=== PATIENT | male | born 1975 | race Caucasian/White ===

== ENCOUNTER 2023-06-29 16:18 | Emergency (ER) | payer OTHER, SELFPAY ==
[2023-06-29 16:23] VITALS: BP 148/82; PULSE 82; RESP 18; TEMP 36.9; O2SAT 100; BMI 33.7
--- NOTE | 2023-06-29 16:48 | ECG_ITS ---
Test Reason : HEADACHE Blood Pressure : / mmHG Vent. Rate : 075 BPM Atrial Rate : 075 BPM P-R Int : 178 ms QRS Dur : 100 ms QT Int : 380 ms P-R-T Axes : 053 -27 068 degrees QTc Int : 424 ms Normal sinus rhythm Minimal voltage criteria for LVH, may be normal variant ( R in aVL ) Nonspecific T wave abnormality Abnormal ECG No previous ECGs available Referred By: Generic ED Physician Electronically Signed By:SHERRELL GONCALVES
[2023-06-29 17:09] LABS: MANUAL DIFF FLAG NO
[2023-06-29 17:31] LABS: Basophils Absolute Auto 0.1 X10*3/uL (0.0-0.2); Basophils Percent Auto 0.9 % (0-2); Eosinophils Absolute Auto 0.3 X10*3/uL (0.0-0.4); Eosinophils Percent Auto 3.6 % (0-4); Hematocrit 27.5 % (42.0-52.0); Hemoglobin 9.1 g/dl (14.0-18.0); Imm Gran Abs Auto 0.03 X10*3/uL (0.00-0.03); Imm Gran Pct Auto 0.4 % (0.0-0.4); Lymphocytes Absolute Auto 1.7 X10*3/uL (1.2-4.9); Lymphocytes Percent Auto 24.4 % (20-40); Mean Corpuscular HGB Conc 33.1 g/dl (31.0-36.0); Mean Corpuscular Hemoglobin 28.8 pg (27.0-33.0); Monocytes Absolute Auto 0.8 X10*3/uL (0.1-1.2); Monocytes Percent Auto 11.3 % (2-11); Neutrophils Absolute Auto 4.1 x10*3/uL (2.0-8.3); Neutrophils Percent Auto 59.4 % (45-73); Platelet Count 369 X10*3/uL (160-400); Red Blood Count 3.16 X10*6/uL (4.60-5.80); Red Cell Distribution Width 14.5 % (11.0-16.0); White Blood Count 6.9 X10*3/uL (4.8-10.8)
[2023-06-29 17:34] LABS: Troponin-I High Sensitivity 225.1 ng/L (<3.5-35.0)
[2023-06-29 17:45] LABS: Anion Gap 12 (12-20); Blood Urea Nitrogen 36 mg/dL (9-16); Calcium 8.2 mg/dL (8.4-10.2); Carbon Dioxide 16 mmol/L (22-29); Chloride 110 mmol/L (96-108); Creatinine Clr Calc Pharmacy 38.6; Estimated Glomerular Filt Rate 21; Glucose Random 296 mg/dL (60-115); Sodium 133 mmol/L (135-145)
[2023-06-29 20:42] LABS: Troponin-I High Sensitivity 208.8 ng/L (<3.5-35.0)
--- NOTE | 2023-06-29 20:42 | PC.NURSE ---
Lab called with critical trop 208.8, reported to Leon, triage provider.
[2023-06-29 21:31] VITALS: BP 140/74; PULSE 69; RESP 16; TEMP 36.4; O2SAT 100
--- NOTE | 2023-06-29 22:28 | ED_ITS ---
HPI - General Adult General Chief complaint: Headache Stated complaint: Headache, was at [facility] last week for heart Time Seen by Provider: 06/29/23 22:13 History of Present Illness HPI narrative: The patient is a 47-year-old male with a history of hypertension, hyperlipidemia and chronic kidney disease who presented to [facility] with chest pain last week on June 28. The patient was found to have a non-STEMI and he went for cardiac catheter. The culprit vessel was noted to be the LAD/diagonal and the patient underwent a bifurcation stent placement to the LAD and diagonal. Echocardiogram showed a normal left ventricular ejection fraction. Apparently while he was in the hospital he developed a severe headache, possibly after receiving nitroglycerin. The headache was quite significant while he was in the hospital. A head CT was done that was negative. There were no signs of infection or visual symptoms. He was treated with pain medications and discharged with a plan to follow up with his PCP for further workup of his headache. The patient was discharged from [facility] 2 days ago. He had the headache at the time of discharge. He had a bad headache yesterday. He says the headache is better at night when it is dark. It is worse with noise or light. He does not have a stiff neck. No fever sweats, chills. He feels the headache primarily behind his left eye. Related Data Previous Rx's ?Medication ?Instructions ?Recorded oxycodone 5 mg tablet 5 mg PO Q6H PRN pain #10 tabs 06/30/23 Allergies Allergy/AdvReac Type Severity Reaction Status Date / Time acetaminophen Allergy Intermediate Shortness Verified 06/29/23 16:23 of Breath Review of Systems 2 Review of Systems: Yes all other systems are reviewed and are negative [facility] Social History Social History Smoked in Last 30 Days: No Use of substances other than those prescribed or required for medical reasons: No Advance Directives: No Advance Directives Information Provided: No Physical Exam ED Vital Signs: Vital Signs - 24 hr 06/29/23 16:23 06/29/23 21:31 06/30/23 00:06 Temperature 98.5 F 97.5 F 98.3 F Pulse Rate 82 69 77 Respiratory Rate 18 16 20 Blood Pressure 148/82 H 140/74 H 143/71 H Pulse Oximetry 100 100 98 Oxygen Delivery Method Room Air Room Air Room Air 06/30/23 00:24 Temperature 98.3 F Pulse Rate 77 Respiratory Rate 20 Blood Pressure 143/71 H Pulse Oximetry 98 Oxygen Delivery Method Room Air BMI result Body Mass Index 33.7 Const Other: The patient is awake and alert. Mental status is normal. He does not appear toxic. He looks mildly uncomfortable HENME Other: Face is symmetrical, mucous membranes moist. Eyes Other: Pupils are round equal, conjunctivae are clear, extraocular movements intact Neck Other: The neck is entirely supple. He can touch his chin to his chest very easily. Resp Effort & Inspection: normal respiratory effort Auscultation: clear to auscultation bilaterally Cardio Rate: regular rate Rhythm: regular rhythm Heart sounds: S1 normal heart sound present and S2 normal heart sound present GI Other: Abdomen is soft and nontender Skin Other: Skin is dry and unremarkable Neuro Other: The patient is awake and alert with a GCS of 15. Mental status is normal. Cranial nerves are intact. He moves his extremities normally. Has a normal gait. He is grossly neurologically intact Extrem Other: No calf swelling or tenderness, no asymmetry Medications Administered Discontinued Medications Generic Name Dose Route Start Last Admin Trade Name Jean Marieq PRN Reason Stop Dose Admin Diphenhydramine HCl 25 mg 06/29/23 22:36 06/29/23 23:07 Diphenhydramine Hcl 50 Mg/Ml Vial IVPUSH 06/29/23 22:37 25 mg ONCE ONE Administration Morphine Sulfate 4 mg 06/29/23 22:39 06/29/23 23:08 Morphine Sulfate 4 Mg/Ml Cartridge IVPUSH 06/29/23 22:40 4 mg ONCE ONE Administration Protocol Prochlorperazine Edisylate 10 mg 06/29/23 22:36 06/29/23 23:07 Prochlorperazine Edisylate 10 Mg/2 Ml Vial IVPUSH 06/29/23 22:37 10 mg ONCE ONE Administration Medical Decision Making Medical Decision Making MDM Narrative: The patient is a 47-year-old male who recently had a non-STEMI treated at [facility]. He had a cardiac catheterization 5 days ago and received stents. While in the hospital he developed a significant headache that he attributes to having received nitroglycerin. Headache was present when he was still at [facility] and he had a negative head CT while at [facility]. He describes the headache as a migraine headache. It is associated with photophobia and nausea. The headache is much better at night and worse during the day. No fevers. Clinically the patient does not seem septic or toxic in any way. He has a very supple neck. Based on his description of the headache I think this is probably a migraine type headache or other non dangerous headache syndrome. The patient's vital signs are unremarkable. His EKG is unremarkable. He has chronic renal insufficiency and today his creatinine is 3.15. He had a carbon dioxide of 16. His troponins are elevated. His 1st troponin was 225. A 2nd troponin was 208. The patient's description of his symptoms does not suggest any ongoing acute coronary syndrome. He has had none of the anginal symptoms with the which he presented to [facility] originally (he had had right-sided chest pain). I therefore think his troponin elevations are likely a residual phenomenon from his SD last week combined with his poor renal function. The patient was given a L of IV normal saline as well as prochlorperazine, diphenhydramine, and morphine for his headache. He felt considerably better. His headache resolved. He was discharged to go home. He requested a prescription for additional oxycodone (he had been prescribed oxycodone at the time of discharge). I sent a prescription for 10 tablets of oxycodone 5 mg each. Lab Data 06/29/23 17:04 06/29/23 17:04 Labs: Lab Results 06/29/23 06/29/23 Range/Units 17:04 20:01 WBC 6.9 (4.8-10.8) X10*3/uL RBC 3.16 L (4.60-5.80) X10*6/uL Hgb 9.1 L (14.0-18.0) g/dl Hct 27.5 L (42.0-52.0) % MCV 87.0 (80.0-98.0) fL MCH 28.8 (27.0-33.0) pg MCHC 33.1 (31.0-36.0) g/dl RDW 14.5 (11.0-16.0) % Plt Count 369 (160-400) X10*3/uL MPV 10.0 (9.4-12.4) fL Immature Gran % (Auto) 0.4 (0.0-0.4) % Neut % (Auto) 59.4 (45-73) % Lymph % (Auto) 24.4 (20-40) % [place] % (Auto) 11.3 H (2-11) % Eos % (Auto) 3.6 (0-4) % Baso % (Auto) 0.9 (0-2) % Lymph # (Auto) 1.7 (1.2-4.9) X10*3/uL [place] # (Auto) 0.8 (0.1-1.2) X10*3/uL Eos # (Auto) 0.3 (0.0-0.4) X10*3/uL Baso # (Auto) 0.1 (0.0-0.2) X10*3/uL Abs Immat Gran (auto) 0.03 (0.00-0.03) X10*3/uL Absolute Neuts (auto) 4.1 (2.0-8.3) x10*3/uL Absolute Nucleated RBC 0.000 (0.0-0.012) X10*3/uL Nucleated RBC % (auto) 0.0 (0.0-0.2) /100WBC Sodium 133 L (135-145) mmol/L Potassium 5.0 (3.3-5.1) mmol/L Chloride 110 H (96-108) mmol/L Carbon Dioxide 16 L (22-29) mmol/L Anion Gap 12 (12-20) BUN 36 H (9-16) mg/dL Creatinine 3.15 H (0.5-1.4) mg/dL Estim Creat Clear Calc 38.6 Estimated GFR 21 Random Glucose 296 H (60-115) mg/dL Calcium 8.2 L (8.4-10.2) mg/dL Troponin I High Sens 225.1 H* 208.8 H* (<3.5-35.0) ng/L Discharge Plan Discharge Clinical Impression: Headache Patient Disposition: Home, Self-Care Additional Instructions: My hope is that the medicine you received tonight will help break the cycle of your headache problem. Please contact your regular doctor tomorrow morning to set up a prompt follow up appointment. Continue your regular medications. Return to the emergency room if you feel significantly worse at any time Prescriptions: New oxycodone 5 mg tablet 5 mg PO Q6H PRN (Reason: pain) Qty: 10 0RF Rx Instructions: Partial Fill upon patient request. Referrals: Talya García MD [Primary Care Provider] - (Headache after SD and stent placement) Interventions: ED Discharge Assessment Last Done: 06/30/23 00:24 Discharge Date/Time: 06/30/23 00:35 Print Language: Belgian
--- NOTE | 2023-06-29 22:44 | MHC.EDTECH ---
Left for [facility]. Waiting on records for this patient.
[2023-06-29] MEDS: diphenhydrAMINE HCL 50 MG/ML VIAL 25 MG IVPUSH (23:07)
[2023-06-29] MEDS: Prochlorperazine Edisylate 10 MG/2 ML VIAL IVPUSH (23:07)
[2023-06-29] MEDS: Morphine Sulfate 4 MG/ML CARTRIDGE IVPUSH (23:08)
[2023-06-30 00:06] VITALS: BP 143/71; PULSE 77; RESP 20; TEMP 36.8; O2SAT 98
[2023-06-30 00:24] VITALS: BP 143/71; PULSE 77; RESP 20; TEMP 36.8; O2SAT 98
== END 2023-06-30 00:35 | disposition home or self-care (01) ==
PROVIDERS: Physician Assistant; Emergency Provider Emergency Medicine; PCP Internal Medicine
DX: R51.9 Headache, unspecified (principal); I21.4 Non-ST elevation (NSTEMI) myocardial infarction; I12.9 Hypertensive chronic kidney disease with stage 1 through stage 4 chronic kidney disease, or unspecified chronic kidney disease; N18.9 Chronic kidney disease, unspecified; Z95.5 Presence of coronary angioplasty implant and graft
CPT/HCPCS: 36415; 80048; 84484; 85025; 93005; 96374; 96375; 99284; J0737; J1200; J2270

== ENCOUNTER → 2023-06-29 16:48 | Outpatient (BNV) | payer OTHER, SELFPAY | PROVIDERS: Emergency Provider Emergency Medicine; PCP Internal Medicine; Visit Provider Internal Medicine | DX: R94.31 Abnormal electrocardiogram [ECG] [EKG] (principal) | CPT/HCPCS: 93010 ==

== ENCOUNTER 2025-01-25 09:45 | Outpatient (REF) | payer OTHER, SELFPAY ==
[2025-01-25 13:36] LABS: MANUAL DIFF FLAG NO
[2025-01-25 13:42] LABS: Hematocrit 26.6 % (42.0-52.0); Hemoglobin 8.6 g/dl (14.0-18.0); Imm Gran Abs Auto 0.01 X10*3/uL (0.00-0.03); Imm Gran Pct Auto 0.2 % (0.0-0.4); Lymphocytes Absolute Auto 1.7 X10*3/uL (1.2-4.9); Mean Corpuscular HGB Conc 32.3 g/dl (31.0-36.0); Mean Corpuscular Hemoglobin 29.3 pg (27.0-33.0); Mean Corpuscular Volume 90.5 fL (80.0-98.0); NRBC Abs Auto 0.000 X10*3/uL (0.0-0.012); NRBC Pct Auto 0.0 /100WBC (0.0-0.2); Platelet Count 271 X10*3/uL (160-400); Red Blood Count 2.94 X10*6/uL (4.60-5.80); White Blood Count 6.3 X10*3/uL (4.8-10.8)
[2025-01-25 14:46] LABS: Thyroid Stimulating Hormone 5.11 uIU/mL (0.32-4.0)
[2025-01-25 14:48] LABS: Alanine Aminotransferase 49 U/L (0-40); Aspartate Amino Transferase 35 U/L (5-37); Estimated Glomerular Filt Rate 12
[2025-01-26 21:08] LABS: Antibody to SS-A Antigen <1.0 NEG AI (<1.0 NEG); Antibody to SS-B Antigen <1.0 NEG AI (<1.0 NEG); SM/Ribonucleoprotein Ab <1.0 NEG AI (<1.0 NEG); Smith Protein <1.0 NEG AI (<1.0 NEG)
[2025-01-30 21:49] LABS: Anti Nuclear Antibody Pattern Nuclear, Speckled; Anti Nuclear Antibody Screen POSITIVE (NEGATIVE); Anti Nuclear Antibody Titer 1:320 titer
[2025-01-31 22:49] LABS: Thyroglobulin Antibodies <1 IU/mL (< or = 1)
== END 2025-01-25 09:46 | disposition home or self-care (01) ==
LOC: HO.HKASLDS 09:45
PROVIDERS: PCP Internal Medicine; Visit Provider Student in an Organized Health Care Education/Training Program
DX: M25.542 Pain in joints of left hand (principal); M25.541 Pain in joints of right hand; M25.512 Pain in left shoulder; M25.511 Pain in right shoulder; M25.552 Pain in left hip; M25.551 Pain in right hip; M25.562 Pain in left knee; M25.561 Pain in right knee; R76.0 Raised antibody titer; R76.89 Other specified abnormal immunological findings in serum
CPT/HCPCS: 36415; 82565; 83516; 84443; 84450; 84460; 85025; 85652; 86038; 86039; 86140; 86160; 86200; 86225; 86235; 86376; 86431; 86800; 99202

== ENCOUNTER 2025-01-25 09:45 | Outpatient (AMB) | payer OTHER, SELFPAY ==
--- OUTSIDE RECORDS SUMMARY | 2025-01-24 10:00 | XMS_ITS | Encounter Summary ---
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, with long-term current use of insulin, macular edema presence unspecified, unspecified laterality, unspecified prol* ([facility] V24, [facility] V28); Insomnia due to medical condition; Pedal edema; Renal failure, unspecified chronicity Social History Tobacco Use Types Packs/Day Years Used Date Smoking Tobacco: Former Cigarettes Smokeless Tobacco: Never Tobacco Cessation:Counseling Given: Not Answered Alcohol Use Standard Drinks/Week Comments Not Currently 0 (1 standard drink = 0.6 oz pur e alcohol) Housing Instability Answer Date Recorde d Are you worried that in the next 2 months you may not have stable housing? No 07/13/2024 Food Access & Nutrition Answer Date Rec orded Do you have access to a vari ety of food including fruits and vegetables? No 07/13/2024 Health Literacy Answer Date Recorded How often do you need to hav e someone help you when you read instructions, pamphlets, or other written material from your doctor or pharmacy? Rarely 07/13/2024 Caregiver: How often do you need to have someone help you when you read instructions, pamphlets, or other written material from your doctor or pharmacy? Not on file 07/13/2024 Financial Risk Answer Date Recorded How hard is it for you to pa y for the very basics like food, housing, medical care, and air conditioning / heating? Hard 07/13/2024 Transportation Answer Date Recorded Has the lack of transportati on kept you from meetings, work, or from getting things needed for daily living? Yes Has the lack of transportati on kept you from medical appointments or from getting medications? Yes 07/13/2024 Social Isolation Answer Date Recorded How often do you feel lonely or isolated from th ose around you? Often 07/13/2024 Food Risk Answer Date Recorded Within the past 12 months we worried whether our food would run out before we got money to buy more. Sometimes true 025 Within the past 12 months th e food we bought just didn't last and we didn't have money to get more. Sometimes true 07/13/2024 Dependent Care Answer Date Recorded Do you need help finding or paying for care for your loved ones. For example, children's ministry director or elderly care for an older adult? No 07/13/2024 Education Answer Date Recorded Do you think completing more education or training, like finishing a GED, going to college, or learning a trade, would be helpful for you? No 07/13/2024 Employment and Income Answer Date Recor ded During the last four weeks, have you been actively looking for work? No 07/13/2024 Living Situation Answer Date Recorded What is your living situation? Unrecognized valu e 07/13/2024 Interpersonal Safety Answer Date Record ed Physical Abuse Unrecognized value 02/18/2024 Verbal Abuse Unrecognized value 02/18/2024 Sex and Gender Information Value Date Recorded Sex Assigned at Male 02/17/2024 8:11 AM EST Legal Sex Male 1:55 AM EST Gender Identity Male 02/17/2024 8:11 AM EST Sexual Orientation Not on file documented as of this encounter Last Filed Vital Signs Vital Sign Reading Time Taken Comments Blood Pressure 174/100 01/24/2025 9:58 AM EST Pulse 57 01/24/2025 9:58 AM EST Temperature 36.9 C (98.5 F) 01/24/2025 9:58 AM EST Respiratory Rate - - Oxygen Saturation - - Inhaled Oxygen Concentration - - Weight 107 kg (235 lb) 01/24/2025 9:58 AM EST Height - - Body Mass Index 31 01/13/2025 9:54 AM EDT documented in this encounter Functional Status * Are you deaf or do you have serious difficulty hearing? Answer Date of Assessment Author No 12/30/2024 4:55 PM EDT Angelica Pérez RN * Are you blind or do you have serious difficulty seeing, even when wearing glasses? Answer Date of Assessment Author No 12/30/2024 4:55 PM EDT Angelica Pérez RN * Do you have serious difficulty walking or climbing stairs? Answer Date of Assessment Author No 12/30/2024 4:55 PM EDT Angelica Pérez RN * Do you have serious difficulty dressing or bathing? Answer Date of Assessment Author No 12/30/2024 4:55 PM EDT Angelica Pérez RN * Because of a physical, mental, or emotional condition, do you have serious difficulty doing errandsalone such as visiting the doctor? Answer Date of Assessment Author No 12/30/2024 4:55 PM EDT Angelica Pérez RN documented as of this encounter Mental Status * Because of a physical, mental, or emotional condition, do you have serious difficulty concentrating, remembering, or making decisions? (5 years old or older) Answer Entry Date Author No 12/30/2024 4:55 PM EDT Angelica Pérez RN documented in this encounter Ordered Prescriptions Prescription Sig Dispense Quantity Refills Last Filled Start Date End Date traZODone (DESYREL) 50 mg tablet Take 1 tablet (50 mg total) by mouth at bedtime as needed for sleep. 30 tablet 2 01/24/2025 documented in this encounter Progress Notes * Talya García MD - 01/24/2025 10:00 AM EST CHIEF COMPLAINT: Body Pain and Weakness - Generalized IDENTIFIER: Blayne Quinones is a 49 y.o. old male. HPI: 49-year-old with multiple medical problems including end-organ damage from long standing diabetes mellitus including end-stage kidney disease coronary artery disease presents for a etvi-gj-judz for DME. He is apparently on Patient complaining of generalized pain and weakness difficulty walking unable to go from sitting to standing without an assistive device They recommended her recliner for patient also needs toilet seat raise and shower chair Because of his end-stage kidney disease he does get bilateral pedal edema and will need compressionstockings He says he has been unable to sleep at night as he hurts all over. Patient with significant uremia. He has follow-up with nephrology and rheumatology ROS: See HPI PAST MEDICAL HISTORY: Patient Active Problem List Diagnosis Date Noted Generalized muscle weakness 01/24/2025 Insomnia due to medical condition 01/24/2025 Positive DOUG (antinuclear antibody) 12/12/2024 Edema 06/27/2024 Preop cardiovascular exam 06/02/2024 Renal failure, unspecified chronicity 02/17/2024 Snoring 08/04/2023 CAD (coronary artery disease) 07/30/2023 Chest pain 06/03/2023 Non-STEMI (non-ST elevated myocardial infarction) [place] [place] [facility] [place]) 06/03/2023 Elevated serum creatinine 10/30/2022 Dyspnea 06/02/2022 Stage 3a chronic kidney disease ([facility] [place], [facility] V28) 08/29/2021 Vitamin D deficiency 08/14/2021 Diabetic vitreous hemorrhage associated with type 2 diabetes mellitus ([facility] [place], [facility] V28) 11/23/2018 Type II diabetes mellitus with proliferative retinopathy ([facility] [place], [facility] V28) 11/23/2018 Diabetes mellitus with peripheral vascular disease ([facility] [place], [facility] V28) 05/25/2018 Marijuana use 10/23/2015 Microalbuminuria 10/10/2015 Type II or unspecified type diabetes mellitus with renal manifestations, uncontrolled(250.42) ([facility] [place], [facility] V28) 10/10/2015 Lumbar radicular pain 08/29/2015 Hyperlipidemia 05/25/2014 Primary hypertension 05/25/2014 Type 2 diabetes mellitus with neurological manifestations, controlled ([facility] V24, [facility] V28) 05/25/2014 SOCIAL HISTORY: Social History Tobacco Use Smoking status: Former Types: Cigarettes Smokeless tobacco: Never Substance Use Topics Alcohol use: Not Currently FAMILY HISTORY: Family Status Relation Name Status Mother at age 78 Father at age 67 Sister Alive Brother Eugene MGM MGF PGM PGF Other (Not Specified) Neg Hx (Not Specified) No partnership data on file Family History[1] ACTIVE MEDICATIONS: Medications Taking[2] ALLERGIES: Acetaminophen and Glipizide PHYSICAL EXAM: Blood pressure (!) 174/100, pulse 57, temperature 36.9 ??C (98.5 ??F), temperature source Temporal,weight 107 kg (235 lb). Body mass index is 31 kg/m??. Plan is deferred until next visit APPEARANCE: Alert and in no acute distress EYES: PERRLA, conjunctiva and sclera normal EARS: External ears normal. Canals clear. TMs normal. NOSE/SINUS: Nares normal. Septum midline. Mucosa normal. No drainage or sinus tenderness MOUTH/THROAT: no erythema, lesions, or exudates NECK: Neck supple, no adenopathy, thyroid symmetric and of normal size HEART: RRR with normal S1 and S2, no murmurs, no gallops, no JVD appreciated CHEST: non-tender LUNG: diminished breath sounds at bilateral base(s) LABS: Wt Readings from Last 3 Encounters: 01/24/25 107 kg (235 lb) 01/13/25 117 kg (257 lb) 12/30/24 111 kg (244 lb) Lab Results Component Value Date HGBA1C 6.4 08/24/2024 Lab Results Component Value Date NA 137 12/30/2024 K 5.2 12/30/2024 CL 110 12/30/2024 CO2 19 (L) 12/30/2024 GLUCOSE 153 (H) 12/30/2024 BUN 68 (H) 12/30/2024 CREATININE 5.19 (H) 12/30/2024 CALCIUM 7.9 (L) 12/30/2024 PROT 6.5 12/30/2024 ALBUMIN 3.1 (L) 12/30/2024 BILITOT 0.3 12/30/2024 AST 26 12/30/2024 ALT 50 12/30/2024 URICACID 6.0 12/09/2024 PHOS 5.4 (H) 11/18/2024 ALKPHOS 96 12/30/2024 CKTOTAL 142 02/18/2024 EGFR 13 (L) 12/30/2024 IMPRESSION: 1. Generalized muscle weakness 2. 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 Insomnia due to medical condition 4. Pedal edema 5. Renal failure, unspecified chronicity PLAN: Generalized muscle weakness Patient will need DME to help him with transfer A prescription is written for recliner as patient has problems going from sitting to standing due to weakness needs to keep his legs elevated to address his bilateral pedal edema Will need a shower chair as patient cannot stand for any period of time without getting out of breath and weak Toilet seat lift to support patient going from sitting to standing Insomnia Trial of trazodone patient says he stopped the gabapentin and all the other medicines as it was notmaking any difference in his symptoms Bilateral pedal edema from congestive heart failure An order for compression stockings is written for patient Renal failure Has follow-up with nephrology next week Return to the office as scheduled Orders Placed This Encounter Procedures Compression stockings ADDITIONAL ORDERS: COMPRESSION STOCKINGS Talya García MD on 01/24/2025 at 12:22 PM EST [1] Family History Problem Relation Name Age of Onset Cataracts Mother Glaucoma Mother Dementia Mother Colon cancer Father Valvular heart disease Father ESRD Father No Known Problems Sister Heart disease Brother [place] Colon cancer Other uncle Blindness Neg Hx Macular degeneration Neg Hx Strabismus Neg Hx [2] Outpatient Medications Marked as Taking for the 01/24/25 encounter (Office Visit) with Talya García MD Medication Sig Dispense Refill aspirin 81 mg EC tablet Take 1 tablet (81 mg total) by mouth 1 (one) time each day. BD Haritha 2nd Gen Pen Needle 32 gauge x needle USE 1 PEN NEEDLE PER INSULIN PEN 100 each 1 blood sugar diagnostic (FreeStyle Lite Strips) test strip 1 each by Other route 2 (two) times a day. USE TO CHECK BLOOD SUGAR ONCE DAILY 100 strip 0 carvediloL (COREG) 3.125 mg tablet TAKE 1 TABLET BY MOUTH TWICE A DAY WITH MEALS 180 tablet 3 cholecalciferol (VITAMIN D-3) 10 mcg (400 unit) tablet Take 1 tablet (400 Units total) by mouth 1 (one) time each day. 90 tablet 1 cloNIDine (JKUGWHEH-EHY-0) 0.2 mg/[address] 1 patch on the skin 1 (one) time per week. FreeStyle Lancets 28 gauge lancets USE ONE LANCET DAILY DIRECTED 100 each 1 hydrALAZINE (APRESOLINE) 25 mg tablet Take 1 tablet (25 mg total) by mouth 3 (three) times a day. 270 each 3 insulin degludec (Tresiba FlexTouch U-100) 100 unit/mL (3 mL) injection pen INJECT 15 UNITS AT NIGHT, INCREASE BY 2 UNITS EVERY 2 DAYS, HOLD IF SUGAR UNDER 70. DIRECTED, MAX 40 UNITS DAILY 45 mL 1 Lokelma 5 gram packet Take 5 g by mouth every other day. losartan (COZAAR) 100 mg tablet TAKE 1 TABLET BY MOUTH EVERY DAY 90 tablet 2 NIFEdipine XL (PROCARDIA XL) 90 mg 24 hr tablet Take 1 tablet (90 mg total) by mouth 1 (one) time each day. 90 tablet 3 documented in this encounter Plan of Treatment Upcoming Encounters Date Type Department Care Team (Late st Contact Info) Description 02/08/2025 9:30 AM EST Office Visit Adult Medicine [facility] [address] [place] [address] Harinder Lipscomb PA [address] [place] [address] 04/24/2025 1:40 PM EST [facility] [address] [place] [phone] Harjit Tomas NP [address] [place] [address] [address] [place] [phone] documented as of this encounter Visit Diagnoses Diagnosis Generalized muscle weakness- Primary Muscle weakness (generalized) 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, with long-term current use of insulin, macular edema presence unspecified, unspecified laterality, unspecified prol* ([facility] [place], [facility] [place]) Insomnia due to medical condition Organic insomnia, unspecified Pedal edema Edema Renal failure, unspecified chronicity documented in this encounter Discontinued Medications Medication Sig Discontinue Reason Start Date End Da te hydroCHLOROthiazide (HYDRODIURIL) 25 mg tablet TAKE 1 TABLET BY MOUTH EVERY DAY Therapy completed 09/05/2024 01/24/2025 Lantus Solostar U-100 Insulin 100 unit/mL (3 mL) injection penIndications:Type 2 diabetes mellitus with other diabetic neurological complication ([facility] [place], [facility] [place]) INJECT 15 UNITS AT NIGHT, INCREASE BY 2 UNITS EVERY 2 DAYS, HOLD IF SUGAR UNDER 70. DIRECTED, MAX 40 UNITS DAILY Therapy completed 09/05/2024 01/24/2025 methocarbamoL (ROBAXIN) 500 mg tablet Take 1 tablet (500 mg total) by mouth every 12 (twelve) hours if needed for muscle spasms for up to 7 days. Therapy completed 01/20/2025 01/24/2025 pregabalin (LYRICA) 50 mg capsuleIndications:Diabet ic polyneuropathy associated with type 2 diabetes mellitus ([facility] [place], [facility]) Take 1 capsule (50 mg total) by mouth 3 (three) times a day. Max Daily Amount: 150 mg Therapy completed 01/10/2025 01/24/2025 Vitamin D3 10 mcg (400 unit) tablet TAKE 1 TABLET BY MOUTH EVERY DAY Therapy completed 11/30/2024 01/24/2025 documented as of this encounter Orders General Supply Count Last Ordered Date First Or dered Date COMPRESSION STOCKINGS 1 01/24/2025 documented in this encounter Additional Health Concerns Assessment Noted Time PHQ-9 Depression Total Score: 10 025 4:16 PM EDT documented as of this encounter Care Teams Composition Mixer Relationship Specialty Start Date End Date Talya García MD [address] [place] [id number] PCP - General Internal Medicine 01/19/24 documented as of this encounter
--- NOTE | 2025-01-25 09:46 | A.OFFVIS_ITS ---
Vital Signs 01/25/25 10:00 Height 6 ft 1 in Weight 259 lb 4.218 oz BMI 34.2 BP 124/80 Blood Pressure Location Rt brachial Position Sitting Pulse 69 Pulse Source Pulse Oximeter Pulse Oximetry (%) 98 Oxygen Delivery Method Room Air Intake Visit Reasons: joint pain/ New Patient Intake Note: Patient presents today for joint pain. Patient c/o of bilateral shoulder pain, mid back pain, bilateral wrist pain, bilateral hand pain, bilateral hip pain, bilateral knee pain and bilateral ankle pain. Patient stated he has been having pain for one year. Patient does nothing for the pain due to dialysis. Patient complain of burning eyes and dry mouth. Allergies acetaminophen Allergy (Intermediate, Verified 01/25/25 09:56) Shortness of Breath glipizide Allergy (Unknown, Verified 01/25/25 09:56) Unknown HPI Comments Details: 49-year-old male here with a history of chronic kidney disease, diabetes mellitus coming in as new patient for evaluation of joint pain He states joint pain started beginning of this year, progressively worse. The joint pain is located in the hands, in the MCPS and PIPS bilaterally, wrists, elbows, shoulders hips and knees. There is diffuse swelling in the hands. There is morning stiffness in all joints atleast one hour Patient is extremely fatigued, very dry eyes and dry mouth All these symptoms have started in the past year no photosensitivity,no oral ulcers, no skin rashes but dry skin all over, no pleuritic chest pain. no blood clots, no bloody diarrhea recently no known family history of autoimmune disease On blood work patient had a negative rheumatoid factor uric acid normal 6.0 DOUG 1:1280 speckled pattern ESR elevated at 38, eGFR 14, cr 4.93 Patient has severely compromised kidney function and is following fish machine feeder for the past 5 months,Dr Green PHYSICAL EXAM General: Comfortable CVS: RRR Respiratory: clear to auscultation bilaterally. Good respiratory effort Skin: No lesions seen MSK: Normal range of motion upper extremities, limited range of motion in the hips. Tenderness in the PIPs and MCPs bilaterally. Patient has difficulty making a closed fist bilaterally, swelling of the hands are noted but there is no active synovitis. [facility] Family History (Updated 01/25/25 @ 08:59 by Ni Lal [facility]) Mother Cataract Glaucoma Dementia Father Colon cancer Heart disease Brother Heart disease Colon cancer Social History (Updated 01/25/25 @ 08:53 by BOUBACAR Gomez) Household Members: None Housing: Apartment Alcohol intake: former Patient Tobacco Use Status: Former Tobacco user Tobacco use type: Cigarette Cigarette Packs Per Day: 0.5 Years Smoked: 20 Assessment & Plan Assessment & Plan (1) Polyarthralgia: Code(s): M25.50 - Pain in unspecified joint Category: Medical Plan: 49-year-old male with a past medical history of chronic kidney disease, awaiting dialysis presenting for evaluation for diffuse joint pain. Notably his joint pain is in his hands wrists and his shoulders in his hips and knees Morning stiffness in these joints lasts for about 1 hour other notable symptoms include dry eyes dry mouth. No other skin rash, no oral ulcers no photosensitivity. Differentials include inflammatory arthritis versus noninflammatory causes of joint pain. Chronic kidney disease may also contribute to his symptoms including fatigue and chronic pain On blood work patient had a negative rheumatoid factor uric acid normal 6.0 , DOUG 1:1280 speckled pattern ESR elevated at 38, eGFR 14, cr 4.93 We will obtain complete workup including CBC, creatinine, AST ,ALT, DOUG, DOUG titer, DOUG specificity, RF, CCP, C3, C4, and UPCR We will also obtain bilateral hand x-rays Patient has gotten x-rays of his hips and knees done at [facility], we will obtain medical records from there Patient is to follow up with us in 2-3 weeks for further evaluation (2) Positive DOUG (antinuclear antibody): Code(s): R76.8 - Other specified abnormal immunological findings in serum Category: Medical Plan 49-year-old male with a past medical history of chronic kidney disease, awaiting dialysis presenting for evaluation for diffuse joint pain. Notably his joint pain is in his hands wrists and his shoulders in his hips and knees Morning stiffness in these joints lasts for about 1 hour other notable symptoms include dry eyes dry mouth. No other skin rash, no oral ulcers no photosensitivity. Differentials include inflammatory arthritis versus noninflammatory causes of joint pain. Chronic kidney disease may also contribute to his symptoms including fatigue and chronic pain On blood work patient had a negative rheumatoid factor uric acid normal 6.0 , DOUG 1:1280 speckled pattern ESR elevated at 38, eGFR 14, cr 4.93 We will obtain complete workup including CBC, creatinine, AST ,ALT, DOUG, DOUG titer, DOUG specificity, RF, CCP, C3, C4, and UPCR We will also obtain bilateral hand x-rays Patient has gotten x-rays of his hips and knees done at [facility], we will obtain medical records from there Patient is to follow up with us in 2-3 weeks for further evaluation Orders: Orders UA ClnCatch+Micro w/rflx Cult Today R76.0 - Raised antibody titer Alanine Aminotransferase Today R76.0 - Raised antibody titer Aspartate Amino Transferase Today R76.0 - Raised antibody titer Creatinine Today R76.0 - Raised antibody titer C Reactive Protein Today R76.0 - Raised antibody titer Complement C3 Today R76.0 - Raised antibody titer Sm Sm/[employer]ICAL [employer]ORDS SECRETARY Antibodies Today R76.0 - Raised antibody titer Complement C4 Today R76.0 - Raised antibody titer Cyclic Citrullinated Peptide Today R76.0 - Raised antibody titer Anti-Centromere B Antibodies Today R76.0 - Raised antibody titer ERASTO 1 Antibody Today R76.0 - Raised antibody titer Thyroid Stimulating Hormone Today R76.0 - Raised antibody titer Thyroid Peroxidase Antibodies Today R76.0 - Raised antibody titer XR Hand Dylan 2V Today M25.50 - Pain in unspecified joint, R76.8 - Other specified abnormal immunological findings in serum Complete Blood Count Auto Diff Today R76.0 - Raised antibody titer Protein Creatinine Ratio, Ur Today R76.0 - Raised antibody titer Anti DNA DS Antibody Today R76.0 - Raised antibody titer Erythrocyte Sedimentation Rate Today R76.0 - Raised antibody titer DOUG Reflex Titer and Pattern Today R76.0 - Raised antibody titer Histone Antibody Today R76.0 - Raised antibody titer Sjogren's Antibodies Today R76.0 - Raised antibody titer Rheumatoid Factor Today R76.0 - Raised antibody titer Scleroderma 70 Antibody Today R76.0 - Raised antibody titer Thyroglobulin Antibodies Today R76.0 - Raised antibody titer Coding Level of Care Code New Pt Level 4 (13882) Diagnoses Polyarthralgia M25.50 Positive DOUG (antinuclear antibody) R76.8
[2025-01-25 10:00] VITALS: BP 124/80; PULSE 69; O2SAT 98; BMI 34.2
--- OUTSIDE RECORDS SUMMARY | 2025-01-25 11:05 | XMS_ITS | Encounter Summary ---
Author Organization [employer] Address [address] [place] [address] Care Team Providers Care Warehousing Technician Name Role Phone Talya García MD Primary Care Prov ider Reason for Visit * Reason Onset Date Comments Leg Swelling 01/20/2025 Encounter Details Date Type Department Care Team ([facility] st Contact Info) Description 01/20/[address] [facility] [address] [place] [phone] Talya García MD [address] [place] [address] Social History Tobacco Use Types Packs/Day Years Used Date Smoking Tobacco: Former Cigarettes Smokeless Tobacco: Never Alcohol Use Standard Drinks/Week Comments Not Currently [...] care for your loved ones. For example, child welfare assistant or elderly care for an older adult? [...] on file documented as of this encounter Functional Status * Are you deaf or do you have serious difficulty hearing? Answer Date of Assessment Author No 12/30/2024 4:55 PM Angelica Sinclair, CAROL * Are you blind or do you have serious difficulty seeing, even when wearing glasses? Answer Date of Assessment Author No 12/30/2024 4:55 PM Angelica Sinclair RN * Do you have serious difficulty walking or climbing stairs? Answer Date of Assessment Author No 12/30/2024 4:55 PM EDT Angelica Pérez RN * Do you have serious difficulty dressing or bathing? Answer Date of Assessment Author No 12/30/2024 4:55 PM MEIRT Angelica Pérez RN * Because of a physical, mental, or emotional condition, do you have serious difficulty doing errandsalone such as visiting the doctor? Answer Date of Assessment Author No 12/30/2024 4:55 PM Angelica Sinclair RN documented as of this encounter Mental Status * Because of a physical, mental, or emotional condition, do you have serious difficulty concentrating, remembering, or making decisions? (5 years old or older) Answer Entry Date Author No 12/30/2024 4:55 PM Angelica Sinclair RN documented in this encounter Progress Notes * Keegan Dooley RN - 01/20/2025 1:53 PM EST Pt has bilateral leg swelling pt would like compression stockings and an electric wheel chair * Juanpablo Cagle - 01/20/2025 1:28 PM EST Patient call requires triage: Symptoms patient is presenting: Pt c/o bilateral leg swelling that is painful. How long has patient had these symptoms?: 2 days For ALL patients calling to schedule any appointment (routine, sick visit, follow up, consult, etc.) in the outpatient setting please ask the following questions: Do you have fever of higher than 101, sore throat with difficulty swallowing or severe shortness ofbreath? If YES to any of these above symptoms, send a message to triage and do not book. Red dot. If no, an audio or video visit should be booked. Have you had close contact with someone with Coronavirus in the last 14 days? Have you traveled abroad? Have you traveled recently to another state outside of [place], [place], [place], [place], [place], [place], [place]? o If yes, did you quarantine for 14 days or have a negative covid test? If yes to any of the above, patient is not to be scheduled in office until after 14 day quarantine or negative covid test. If pain or injury related was it due to an accident at work or from a motor vehicle accident? If yes, date of accident/Injury: If yes, gather 3rd constitution party insurance information Third Green Party Information: PCP: Talya García MD Payor: [facility] / Plan: [employer] ONE CARE / Product Type: *No Product type* / documented in this encounter Plan of Treatment Upcoming Encounters Date Type Department Care Team (Late st Contact Info) Description 02/08/2025 9:30 AM EST Office Visit Adult Medicine - [place] [address] [place] [address] Harinder Lipscomb PA [address] [place] [address] 04/24/2025 1:40 PM EST Office Visit [facility] [address] [place] [phone] Harjit Tomas NP [address] [place] [address] Dr [address] [place] [phone] documented as of this encounter Visit Diagnoses Not on filedocumented in this encounter Additional Health Concerns Assessment Noted Time PHQ-9 Depression Total Score: 10 025 4:16 PM EDT documented as of this encounter Care Teams Warehousing Technician Relationship Specialty Start Date End Date Talya García MD [address] [place] [address] PCP - General Internal Medicine 01/19/24 documented as of this encounter
--- OUTSIDE RECORDS SUMMARY | 2025-01-25 11:05 | XMS_ITS | Encounter Summary ---
Author Organization [employer] Address [address] [place] [address] Care Team Providers Care Data Science And Iot Manager Name Role Phone Talya García MD Primary Care Prov ider Reason for Referral * Consultation (Routine) - Closed Specialty Diagnoses / Procedures Referred By Jeronimo luis Referred To Contact Neurology Diagnoses Cervicogenic headache Nerve pain Talya García MD [address] [place] [address] Phone: tel: fax: [facility] [address] [facility] [address] [place] [address] Phone: tel: fax: Referral ID Status Reason Start Date Expiration Date V isits Requested Visits Authorized [id number] Closed Consult and Treat 01/10/2025 01/10/2026 1 1 Reason for Visit * Reason Onset Date Comments Referral 01/10/2025 Neurology Encounter Details Date Type Department Care Team ([facility] st Contact Info) Description 01/10/2025 Telephone Adult Medicine - [place] [address] [place] [phone] Talya García MD [address] [place] [address] Social History Tobacco Use Types Packs/Day Years [...] for your loved ones. For example, children's librarian or elderly care for an older adult? [...] Angelica Pérez RN documented in this encounter Progress Notes * Gin Sheppard - 01/10/2025 1:41 PM EDT Please review and sign pended referral if appropriate. documented in this encounter Plan of Treatment Upcoming Encounters Date Type Department Care Team (Late st Contact Info) Description 02/08/2025 9:30 AM EST Office Visit Adult [address] [phone] Harinder Lipscomb PA [address] [place] [address] 04/24/2025 1:40 PM EST Office Visit [facility] Cardiology [facility] [address] [place] [address] Harjit Tomas NP [address] [place] [address] Dr [address] [place] [address] Scheduled Referrals Name Type Priority Associated Diagnoses Order Schedule Ambulatory referral to Neurology Outpatient Referral Routine Cervicogenic headache Nerve pain Expected: 01/10/2025, Expires: 01/10/2026 documented as of this encounter Visit Diagnoses Diagnosis Nerve pain- Primary Unspecified neuralgia, neuritis, and radiculitis Cervicogenic headache Headache Type 2 diabetes mellitus with other diabetic neurological complication (CMS/[facility] V24, CMS/[facility] V28) documented in this encounter Additional Health Concerns Assessment Noted Time PHQ-9 Depression Total Score: 025 4:16 PM EDT documented as of this encounter Care Teams Data Science And Iot Manager Relationship Specialty Start Date End Date Talya García MD [address] [place] [address] PCP - General Internal Medicine 01/19/24 documented as of this encounter
--- OUTSIDE RECORDS SUMMARY | 2025-01-25 11:05 | XMS_ITS | Encounter Summary ---
Author Organization [employer] Address [address] [place] [address] Care Team Providers Care Glass Tube Bender Name Role Phone Talya García MD Primary Care Prov ider Encounter Details Date Type Department Care Team (Late st Contact Info) Description 01/13/2025 Results Follow-Up Adult Medicine - [place] [address] [place] [address] Talya García MD [address] [place] [address] Social History Tobacco Use Types Packs/Day Years [...] care for your loved ones. For example, exceptional children teacher or elderly care for an older adult? [...] 12/30/2024 4:55 PM Angelica Sinclair RN * Are you blind or do [...] Angelica Pérez RN documented in this encounter Plan of Treatment Upcoming Encounters Date Type Department Care Team (Late st Contact Info) Description 02/08/2025 9:30 AM EST Office Visit Adult Medicine [facility] [address] [place] [address] Harinder Lipscomb PA [address] [place] [address] 04/24/2025 1:40 PM EST Office Visit [facility] - [facility] [address] [place] [phone] Harjit Tomas NP [address] [place] [address] Dr [address] [place] [phone] documented as of this encounter Visit Diagnoses Not on filedocumented in this encounter Additional Health Concerns Assessment Noted Time PHQ-9 Depression Total Score: 025 4:16 PM EDT documented as of this encounter Care Teams Glass Tube Bender Relationship Specialty Start Date End Date Talya García MD [address] [place] [address] PCP - General Internal Medicine 01/19/24 documented as of this encounter
--- OUTSIDE RECORDS SUMMARY | 2025-01-25 11:05 | XMS_ITS | Encounter Summary ---
Author Organization [employer] Address [address] [place] [address] Care Team Providers Care Watch And Clock Maker And Repairer Name Role Phone Talya García MD Primary Care Prov ider Encounter Details Date Type Department Care Team ([facility] st Contact Info) Description 12/12/2024 Results Follow-Up Adult Medicine - [place] [address] [place] [address] Harinder Lipscomb PA [address] [place] [address] Social History Tobacco Use Types Packs/Day Years [...] care for your loved ones. For example, childbirth educator or elderly care for an older adult? [...] hearing? Answer Date of Assessment Author No 02/19/2024 11:11 PM Adriana Rodriguez RN * Are you blind or do you have serious difficulty seeing, even when wearing glasses? Answer Date of Assessment Author No 02/19/2024 11:11 PM Adriana Rodriguez RN * Do you have serious difficulty walking or climbing stairs? Answer Date of Assessment Author No 02/19/2024 11:11 PM Adriana Rodriguez RN * Do you have serious difficulty dressing or bathing? Answer Date of Assessment Author No 02/19/2024 11:11 PM Adriana Rodriguez RN * Because of a physical, mental, or emotional condition, do you have serious difficulty doing errandsalone such as visiting the doctor? Answer Date of Assessment Author No 02/19/2024 11:11 PM Adriana Rodriguez RN documented as of this encounter Mental Status * Because of a physical, mental, or emotional condition, do you have serious difficulty concentrating, remembering, or making decisions? (5 years old or older) Answer Entry Date Author No 02/19/2024 11:11 PM Adriana Rodriguez RN documented in this encounter Plan of Treatment Upcoming Encounters Date Type Department Care Team (Late st Contact Info) Description 02/08/2025 9:30 AM EST Office Visit Adult Medicine [facility] [address] [place] [address] Harinder Lipscomb PA [address] [place] [address] 04/24/2025 1:40 PM EST Office Visit [facility] - [facility] Center [address] [place] [address] [place] [phone] Harjit Tomas NP [address] [place] [address] [address] [place] [phone] documented as of this encounter Visit Diagnoses Diagnosis Positive DOUG (antinuclear antibody)- Primary Other and unspecified nonspecific immunological findings documented in this encounter Additional Health Concerns Assessment Noted Time PHQ-9 Depression Total Score: 10 025 4:16 PM EDT documented as of this encounter Care Teams Watch And Clock Maker And Repairer Relationship Specialty Start Date End Date Talya García MD [address] [place] [address] PCP - General Internal Medicine 01/19/24 documented as of this encounter
--- OUTSIDE RECORDS SUMMARY | 2025-01-25 11:05 | XMS_ITS | Clinical Summary ---
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 90 tablet 1 5 Active aspirin 81 mg EC tablet Take 1 tablet (81 mg total) by mouth 1 (one) time each day. Active hydrALAZINE (APRESOLINE) 25 mg tabletIndications: Primary hypertension,Coron cezar artery disease involving catawba coronary artery of catawba heart with angina pectoris (CMS/HCC V24) Take 1 tablet (25 mg total) by mouth 3 (three) times a day. 270 each 3 5 026 Active losartan (COZAAR) 100 mg tabletIndications: Coronary artery disease with angina pectoris, unspecified vessel or lesion type, unspecified whether catawba or transplanted heart (CMS/HCC V24),Dyspnea, unspecified type,Hyperlipidemi a, unspecified hyperlipidemia type,Primary hypertension TAKE 1 TABLET BY MOUTH EVERY DAY 90 tablet 2 5 Active NIFEdipine XL (PROCARDIA XL) 90 mg 24 hr tablet Take 1 tablet (90 mg total) by mouth 1 (one) time each day. 90 tablet 3 5 026 Active carvediloL (COREG) 3.125 mg tablet TAKE 1 TABLET BY MOUTH TWICE A DAY WITH MEALS 180 tablet 3 5 Active BD Haritha 2nd Gen Pen Needle 32 gauge x / needle USE 1 PEN NEEDLE PER INSULIN PEN 100 each 1 5 Active FreeStyle Lancets 28 gauge lancets USE ONE LANCET DAILY DIRECTED 100 each 1 5 Active insulin degludec (Tresiba FlexTouch U-100) 100 unit/mL (3 mL) injection pen INJECT 15 UNITS AT NIGHT, INCREASE BY 2 UNITS EVERY 2 DAYS, HOLD IF SUGAR UNDER 70. DIRECTED, MAX 40 UNITS DAILY 45 mL 1 5 Active cloNIDine (RLJQXDYP-ILH-5) 0.2 mg/[address] 1 patch on the skin 1 (one) time per week. Active Lokelma 5 gram packet Take 5 g by mouth every other day. 5 025 Active blood sugar diagnostic (FreeStyle Lite Strips) test strip 1 each by Other route 2 (two) times a day. USE TO CHECK BLOOD SUGAR ONCE DAILY 100 strip 5 Active traZODone (DESYREL) 50 mg tablet Take 1 tablet (50 mg total) by mouth at bedtime as needed for sleep. 30 tablet 2 5 026 Active Lantus Solostar U-100 Insulin 100 unit/mL (3 mL) injection penIndications:Typ e 2 diabetes mellitus with other diabetic neurological complication ([facility] V24, CMS/[facility] V28) INJECT 15 UNITS AT NIGHT, INCREASE BY 2 UNITS EVERY 2 DAYS, HOLD IF SUGAR UNDER 70. DIRECTED, MAX 40 UNITS DAILY 45 mL 1 5 025 Discontin ued(Thera py completed ) hydroCHLOROthiazid e (HYDRODIURIL) 25 mg tablet TAKE 1 TABLET BY MOUTH EVERY DAY 90 tablet 1 5 025 Discontin ued(Thera py completed ) Vitamin D3 10 mcg (400 unit) tablet TAKE 1 TABLET BY MOUTH EVERY DAY 90 tablet 1 5 025 Discontin ued(Thera py completed ) gabapentin (NEURONTIN) 100 mg capsule Take 1 capsule (100 mg total) by mouth 2 (two) times a day for 14 days. 28 each 5 025 Discontin ued(Reord er) methocarbamoL (ROBAXIN) 500 mg tablet Take 1 tablet (500 mg total) by mouth every 12 (twelve) hours if needed for muscle spasms for up to 7 days. 14 each 5 025 Discontin ued(Reord er) gabapentin (NEURONTIN) 300 mg capsule Take 1 capsule (300 mg total) by mouth 3 (three) times a day. 90 each 5 5 025 Discontin ued(Reord er) pregabalin (LYRICA) 50 mg capsuleIndications :Diabetic polyneuropathy associated with type 2 diabetes mellitus (CMS/HCC V24, CMS/HCC V28) Take 1 capsule (50 mg total) by mouth 3 (three) times a day. Max Daily Amount: 150 mg 90 each 3 5 025 Discontin ued(Thera py completed ) methocarbamoL (ROBAXIN) 500 mg tablet Take 1 tablet (500 mg total) by mouth every 12 (twelve) hours if needed for muscle spasms for up to 7 days. 14 each 5 025 Discontin ued(Thera py completed ) Active Problems Problem Noted Date Diagnosed Date Generalized muscle weakness 01/24/2025 Insomnia due to medical condition 01/24/2025 Positive DOUG (antinuclear antibody) 12/12/2024 Edema 06/27/2024 Assessment & Plan (09/05/2024 10:28 AM EDT): Swelling resolved. PRN Lasix with careful infrequent use in the the setting of known significant chronic kidney disease. Assessment & Plan (06/27/2024 3:25 PM EDT): New swelling may be related to nifedipine. PRN Lasix with careful infrequent use in the the setting of known significant chronic kidney disease. Orders: furosemide (LASIX) 20 mg tablet; Take 1 tablet (20 mg total) by mouth 1 (one) time each day if needed (swelling). Preop cardiovascular exam 06/02/2024 Assessment & Plan (06/02/2024 11:51 AM EDT): Per the Garcia cardiac risk index the patient is acceptable risk for his surgery moving forward. No preoperative cardiac testing is recommended at this time. The patient should remain on his aspirin perioperatively if possible. Additionally he should continue carvedilol and nifedipine perioperatively. Please avoid large fluid shifts, sustained tachycardia or profound anemia in order to prevent demand ischemic events. Renal failure, unspecified chronicity 02/17/2024 Snoring 08/04/2023 CAD (coronary artery disease) 07/30/2023 Overview (06/02/2024): April 2023 - Nuclear stress test showing inferior ischemia April 2023 - angiogram showed moderate LAD and 1st diagonal disease with mild diffuse disease elsewhere - medical therapy recommended June 2023 - repeat angiogram due to NSTEMI status post DK crush technique with two ZAKIA to LAD and 1st diag June 2023 - echocardiogram showed preserved left ventricular systolic function LVEF 55 to 60% with no regional wall motion abnormalities, normal diastolic function, moderate left atrial dilatation, normal right atrium, preserved RV systolic function and no hemodynamically significant valvular disease Assessment & Plan (09/05/2024 10:28 AM EDT): In June 2023 the patient underwent stenting of a bifurcation lesion with 1 ZAKIA to the LAD and 1 ZAKIA to the diagonal artery. Since then he has not had any anginal symptoms. His echocardiogram at that time showed preserved left ventricular systolic function without regional wall motion abnormalities. He has been having ongoing difficulty with his medications. He will stay on aspirin and rosuvastatin. Medication changes and schedule as above. Consider SGLT2 inhibitor. We discussed risk reduction through lifestyle choices including healthy diet, routine exercise and weight management. Assessment & Plan (06/27/2024 3:25 PM EDT): In June 2023 the patient underwent stenting of a bifurcation lesion with 1 ZAKIA to the LAD and 1 ZAKIA to the diagonal artery. Since then he has not had any anginal symptoms. His echocardiogram at that time showed preserved left ventricular systolic function without regional wall motion abnormalities. He has been having ongoing difficulty with his medications. During today's visit he reports having trouble remembering the nighttime doses. He will stay on aspirin and rosuvastatin. Medication changes and schedule as above. Consider SGLT2 inhibitor. We discussed risk reduction through lifestyle choices including healthy diet, routine exercise and weight management. Orders: hydrALAZINE (APRESOLINE) 25 mg tablet; Take 1 tablet (25 mg total) by mouth 3 (three) times a day. Assessment & Plan (06/02/2024 11:51 AM EDT): In June 2023 the patient underwent stenting of a bifurcation lesion with 1 ZAKIA to the LAD and 1 ZAKIA to the diagonal artery. Since then he has not had any anginal symptoms. His echocardiogram at that time showed preserved left ventricular systolic function without regional wall motion abnormalities. He has been having difficulty with his medications. Review of previous note suggest he had ran out of medications. During today's visit he reports not taking the nighttime doses. At this point in time I will discontinue his Brilinta as he is essentially a year out from his stents. He will stay on aspirin, carvedilol, losartan, nifedipine, clonidine and rosuvastatin at this time. Consider SGLT2 inhibitor. We discussed risk reduction through lifestyle choices including healthy diet, routine exercise and weight management. Orders: ECG 12 lead Chest pain 06/03/2023 Non-STEMI (non-ST elevated m yocardial infarction) ([facility] V24, [facility] V28) 06/03/2023 Overview (12/14/2023): Bifurcation. 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 Dr. Fontaine. 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 Dr. Fontaine. Diabetes mellitus with perip heral vascular disease ([facility] V24, [facility] V28) 05/25/2018 Marijuana use 10/23/2015 Microalbuminuria 10/10/2015 Type II or unspecified type diabetes mellitus with renal manifestations, uncontrolled(250.42) ([facility] V24, [facility] V28) 10/10/2015 Overview (12/14/2023): Type II diabetes mellitus with renal manifestations, uncontrolled Lumbar radicular pain 08/29/2015 Hyperlipidemia 05/25/2014 Assessment & Plan (09/05/2024 10:28 AM EDT): April 2023 LDL 120 and HDL 58. Continue with rosuvastatin. The patient has reported joint pain but he has been off the statin and it hasn't improved. I suspect this is somewhat related to deconditioning. I have encouraged him to exercise and lose weight. We will consider restarting a statin in the future. He will eventually need a repeat lipid panel as well. Assessment & Plan (06/27/2024 3:25 PM EDT): April 2023 LDL 120 and HDL 58. Continue with rosuvastatin. The patient has reported joint pain but he cannot say for sure if it is the joints or his muscles. This may be related to his statin. Will see him back in approximately a month and at that time consider a hold on statin therapy to assess whether this is a side effect. He will eventually need a repeat lipid panel as well. Assessment & Plan (06/02/2024 11:51 AM EDT): April 2023 LDL 120 and HDL 58. Continue with rosuvastatin. The patient has reported joint pain but he cannot say for sure if it is the joints or his muscles. This may be related to his statin. Will see him back in approximately a month and at that time consider a hold on statin therapy to assess whether this is a side effect. He will eventually need a repeat lipid panel as well. Primary hypertension 05/25/2014 Assessment & Plan (09/05/2024 10:28 AM EDT): Uncontrolled in office, but not taking hydralazine. I have encouraged him to start hydralazine with morning and afternoon dosing with a prn dose in evening if blood pressures elevated. Continue with nifedipine, carvedilol in am. Second dose of carvedilol and losartan after lunch. Assessment & Plan (06/27/2024 3:25 PM EDT): Controlled in office, but apparently uncontrolled and symptomatic during the evening at home. He is still not taking his medications as prescribed. He may be having side effects from clonidine so I will stop this. I will start hydralazine with morning and afternoon dosing with a prn dose in evening if blood pressures elevated. Continue with nifedipine, carvedilol in am. Second dose of carvedilol and losartan after lunch. Orders: hydrALAZINE (APRESOLINE) 25 mg tablet; Take 1 tablet (25 mg total) by mouth 3 (three) times a day. Assessment & Plan (06/02/2024 11:51 AM EDT): Controlled. Unclear if his episodes of lightheadedness are related to drops in blood pressure. He is not taking his medications as prescribed. Following his surgery we may want to consider changing all of his medications to once daily dosing. In the meantime he will stay on medications as they are now including nifedipine, carvedilol, losartan and clonidine. Type 2 diabetes mellitus wit h neurological manifestations, controlled ([facility] V24, [facility] V28) 05/25/2014 Overview (12/14/2023): Type II or unspecified type diabetes mellitus with neurological manifestations, not stated as uncontrolled Encounters Date Type Department Care Team Description 01/25/2025 Telephone Nephrology - [address] [phone] Hugo Green MD 01/24/2025 10:00 AM EST Office Visit Adult Medicine [address] [phone] Talya Adames MD Generalized muscle weakness (Primary Dx); 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, with long-term current use of insulin, macular edema presence unspecified, unspecified laterality, unspecified prol* (CMS/HCC V24, CMS/HCC V28); Insomnia due to medical condition; Pedal edema; Renal failure, unspecified chronicity 01/24/[address] [phone] [place] 01/20/[address] [phone] Talya Adames MD 01/13/2025 10:50 AM EDT Lab Draw Station [address] Benign prostatic hyperplasia with urinary frequency; Screen for STD (sexually transmitted disease) 01/13/2025 10:00 AM EDT Office Visit [address] [phone] Talya Adames MD Type 2 diabetes mellitus with neurological manifestations, controlled ([facility] V24, [facility] V28) (Primary Dx); Diabetic polyneuropathy associated with type 2 diabetes mellitus (CMS/HCC V24, CMS/HCC V28); Drug allergy; Positive DOUG (antinuclear antibody); STD (male); Benign prostatic hyperplasia with urinary frequency; Screen for STD (sexually transmitted disease) 01/13/2025 Results Follow-Up [address] [phone] Talya Adames MD 01/10/[address] [phone] Talya Adames MD 01/10/[address] [phone] Talya Adames MD 01/10/2025 Telephone Adult Medicine - [place] [address] [place] [address] Talya Adames MD 01/10/2025 Telephone Adult Medicine - [place] [address] [place] [phone] Talya Adames MD 01/06/2025 Telephone [facility] Cardiology [facility] [address] [place] [phone] Provider, Not In System 01/03/2025 Telephone Adult Medicine - [place] [address] [place] [phone] Talya Adames MD 12/30/2024 3:27 PM EDT - 12/30/2024 10:49 PM EDT Emergency [facility] [address] [place] [address] Marisol Richard MD Goebel, Mathew, MD Other fatigue (Primary Dx); Body aches; Chronic bilateral back pain, unspecified back location Discharge Disposition: Home or Self Care 12/30/2024 Telephone Adult Medicine - [place] [address] [place] [address] Talya Adames MD 12/20/[address] [place] [phone] Provider, Not In System 12/12/2024 Results Follow-Up Adult [facility] - [place] [address] [place] [address] Harinder Lipscomb PA 12/09/2024 11:15 AM EDT Office Visit Adult Medicine [facility] [address] [place] [address] Harinder Lipscomb PA 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, with long-term current use of insulin, macular edema presence unspecified, unspecified laterality, unspecified prol* (CMS/HCC V24, CMS/HCC V28) (Primary Dx); Type 2 diabetes mellitus with neurological manifestations, controlled (CMS/HCC V24, [facility] V28); Coronary artery disease without angina pectoris, unspecified vessel or lesion type, unspecified whether catawba or transplanted heart; Complaints of total body pain; Elevated serum creatinine; ESRD (end stage renal disease) ([facility] V24, [facility] V28) 11/21/2024 Telephone Adult Medicine - [place] [address] [place] [phone] Talya Adames MD 11/17/2024 Telephone [facility] [address] [place] [address] Leif An 10/28/2024 Telephone Adult Medicine - [place] [address] [place] [address] Talya Adames MD from Last 3 Months Immunizations Immunization Administration Dates Next Due Pfizer SARS-CoV-2 COVID-19, mRNA, LNP-S, preservative free 10/18/2020 Surgical History Surgery Date Site/Laterality Comments EYE SURGERY 06/07/2024 Right Medical History Medical History Date Comments Snoring 08/04/2023 CAD (coronary artery disease) 07/30/2023 Chest pain 06/03/2023 History of cardiac catheterization 06/03/2023 [place] 04[place]29/[place] [facility] [place] [facility] indications: NSTEMI Non-STEMI (non-ST elevated m yocardial infarction) ([facility] V24, [facility] V28) 06/03/2023 Bifurcation. ZAKIA stentin the LAD and diagonal echocardiogram shows normal left ventricular ejection fraction Elevated serum creatinine 10/30/2022 Dyspnea 06/02/2022 Family history of colon canc er in father 08/29/2021 Stage 3a chronic kidney dise ase (CKD) ([facility] V24, [facility] V28) 08/29/2021 Vitamin D deficiency 08/14/2021 Non-compliance with treatment 11/26/2018 [facility] [place] does not believe in medicationspoison will not take any medicine that is not a cure Type 2 diabetes mellitus wit h proliferative retinopathy ([facility] V24, [facility] V28) 11/23/[address] Fontaine Marijuana use 10/23/2015 Microalbuminuria 10/10/2015 Lumbar radicular pain 08/29/2015 Hyperlipidemia 05/25/2014 Primary hypertension 05/25/2014 Type II or unspecified type diabetes mellitus with neurological manifestations, not stated as uncontrolled(250.60) ([facility] V24, [facility] V28) 05/25/2014 Family History Medical History Relation Name Comments Heart disease Brothjulissa Knight Colon cancer Father ESRD Father Valvular heart disease Father Cataracts Mother Dementia Mother Glaucoma Mother Colon cancer Other uncle No Known Problems Sister Blindness Neg Hx Macular degeneration Neg Hx Strabismus Neg Hx Relation Name Status Comments Brother Eugene Father (Age 67) Maternal Grandfather Maternal Grandmother Mother (Age 78) Other Paternal Grandfather Paternal Grandmother Sister Alive Social History Tobacco Use Types Packs/Day Years [...] care for your loved ones. For example, early childhood lead teacher or elderly care for an older [...] AM EST Sexual Orientation Not on file Obstetrics History Last Filed Vital Signs Vital Sign Reading Time Taken Comments Blood Pressure 174/100 01/24/2025 9:58 AM EST Pulse 57 01/24/2025 9:58 AM EST Temperature 36.9 C (98.5 F) 01/24/2025 9:58 AM EST Respiratory Rate 16 12/30/2024 6:48 PM EDT Oxygen Saturation 98% 12/30/2024 6:48 PM EDT Inhaled Oxygen Concentration - - Weight 107 kg (235 lb) 01/24/2025 9:58 AM EST Height 185.4 cm (6' 1 ) 01/13/2025 9:54 AM EDT Body Mass Index 31 01/13/2025 9:54 AM EDT Plan of Treatment Upcoming Encounters Date Type Department Care Team (Late st Contact Info) Description 02/08/2025 9:30 AM EST Office Visit Adult Medicine - [place] [address] [place] [phone] Harinder Lipscomb PA [address] [place] [address] 04/24/2025 1:40 PM EST Office Visit [facility] [address] [phone] Cycz, DIAMANTE Lombardi [address] [place] [address] [place] [address] [phone] Health Maintenance Due Date Last Done Comments Diabetes: Annual Foot Exam 07/03/1985 DTaP,Tdap,and Td Vaccines (1 - Tdap) 07/03/1994 COVID-19 Vaccine (3 - Pfizer risk series) 12/06/2020 11/08/2020, 10/18/2020 Influenza Vaccine (#1) 2024 Diabetes: Blood Sugar Control Test (HGBA1C) 02/23/2025 08/24/2024, 02/17/2024, 10/29/2022 Diabetes: Annual Retina Eye Exam 05/09/2025 05/09/2024, 03/24/2023 Social Influencers of Health Screening 07/13/2025 07/13/2024 Hypertension/CHF/CAD Annual BMP Blood Test 12/30/2025 12/30/2024, 11/18/2024, 08/24/2024, Additional history exists Colorectal Cancer Screening: Colonoscopy 12/25/2026 12/25/2021 Cholesterol Screening (Lipid Panel) 08/24/2029 08/24/2024, 08/24/2023, 08/24/2023 RSV Immunization Adult Patients (1 - 1-dose 75+ series) 07/03/2050 Depression Screening Completed 12/03/2024 HIV Screening Discontinued 01/13/2025 Hepatitis C Screening Completed 01/13/2025, 017 Hepatitis B Vaccines Discontinued 01/17/2025 HIB Vaccines Aged Out No longer eligi ble based on patient's age to complete this topic HPV Vaccines Aged Out No longer eligi ble based on patient's age to complete this topic Hepatitis A Vaccines Aged Out No long er eligible based on patient's age to complete this topic IPV Vaccines Aged Out No longer eligi ble based on patient's age to complete this topic MMR Vaccines Aged Out No longer eligi ble based on patient's age to complete this topic Medicare Annual Wellness Visit Discontinued Meningococcal ACWY Vaccine Aged Out N o longer eligible based on patient's age to complete this topic Meningococcal B Vaccine Aged Out No l onger eligible based on patient's age to complete this topic Pneumococcal Vaccine: Pediatrics (0 to 5 Years) and At-Risk Patients (6 to 49 Years) Discontinued RSV Immunization Patients Under 20 months Aged Out No longer eligible based on patient's age to complete this topic Varicella Vaccines Aged Out No longer eligible based on patient's age to complete this topic Procedures Procedure Name Priority Date/Time Associated Diagnosis Comments CHLAMYDIA TRACHOMATIS AND NEISSERIA GONORRHOEAE PCR Routine 01/13/2025 11:11 AM EDT Screen for STD (sexually transmitted disease) HEPATITIS C ANTIBODY Routine 01/13/2025 10:50 AM EDT Screen for STD (sexually transmitted disease) HIV 1, 2 ANTIBODY, P24 ANTIGEN WITH REFLEX TO DIFFERENTIATION Routine 01/13/2025 10:50 AM EDT Screen for STD (sexually transmitted disease) TREPONEMA PALLIDUM ANTIBODY WITH REFLEX TO RPR AND PARTICLE AGGLUTINATION Routine 01/13/2025 10:50 AM EDT Screen for STD (sexually transmitted disease) PROSTATE SPECIFIC ANTIGEN SCREEN Routine 01/13/2025 10:50 AM EDT Benign prostatic hyperplasia with urinary frequency GONZALEZ URINE CULTURE TUBE STAT 12/31/19 8:23 PM EDT URINALYSIS WITH REFLEX MICROSCOPIC AND CULTURE STAT 12/30/2024 8:23 PM EDT URINALYSIS WITH REFLEX MICROSCOPIC AND CULTURE STAT 12/30/2024 8:23 PM EDT SEDIMENTATION RATE STAT 12/30/2024 4: 39 PM EDT CBC WITH AUTO DIFFERENTIAL STAT 12/30/2024 4:39 PM EDT COMPREHENSIVE METABOLIC PANEL STAT 12/30/2024 4:39 PM EDT CBC AND DIFFERENTIAL STAT 12/30/2024 4:39 PM EDT SEDIMENTATION RATE Routine 12/09/2024 12 :01 PM EDT Complaints of total body pain DOUG IFA WITH TITER AND PATTERN Routine 12/09/2024 12:01 PM EDT Complaints of total body pain BORRELIA BURGDORFERI ANTIBODY Routine 12/09/2024 12:01 PM EDT Complaints of total body pain URIC ACID Routine 12/09/2024 12:01 PM EDT Complaints of total body pain RHEUMATOID FACTOR Routine 12/09/2024 12: 01 PM EDT Complaints of total body pain CBC WITH AUTO DIFFERENTIAL Routine 11/18/2024 10:00 AM EDT Anemia, unspecified Chronic kidney disease, stage V (CMS/HCC V24, CMS/HCC V28) RENAL FUNCTION PANEL Routine 11/18/2024 10:00 AM EDT Anemia, unspecified Chronic kidney disease, stage V (CMS/HCC V24, CMS/HCC V28) FERRITIN Routine 11/18/2024 10:00 AM EDT Anemia, unspecified Chronic kidney disease, stage V (CMS/HCC V24, CMS/HCC V28) CBC AND DIFFERENTIAL Routine 11/18/2024 10:00 AM EDT Anemia, unspecified Chronic kidney disease, stage V (CMS/HCC V24, CMS/HCC V28) IRON AND TIBC Routine 11/18/2024 10:00 AM EDT Anemia, unspecified Chronic kidney disease, stage V (CMS/HCC V24, CMS/HCC V28) PARATHYROID HORMONE INTACT Routine 11/18/2024 10:00 AM EDT Anemia, unspecified Chronic kidney disease, stage V (CMS/HCC V24, CMS/HCC V28) MICROALBUMIN CREATININE URINE RATIO Routine 11/18/2024 10:00 AM EDT Anemia, unspecified Chronic kidney disease, stage V ([facility] V24, [facility] V28) VITAMIN D 25 HYDROXY Routine 11/18/2024 10:00 AM EDT Anemia, unspecified Chronic kidney disease, stage V ([facility] V24, [facility] V28) HEMOGLOBIN A1C Routine 08/24/2024 11:37 AM EDT Type 2 diabetes mellitus with neurological manifestations, controlled ([facility] V24, [facility] V28) LIPID PANEL WITH REFLEX TO DIRECT LDL Routine 08/24/2024 11:37 AM EDT Type 2 diabetes mellitus with neurological manifestations, controlled ([facility] V24, [facility] V28) DIABETES EYE EXAM Routine 03/24/2023 EXTERNAL COLONOSCOPY REPORT Routine 12/25/2021 11:06 AM EDT from Last 3 Months or Most Recently Relevant to Health Maintenance Results * Chlamydia trachomatis and Neisseria gonorrhoeae molecular study (01/13/2025 11:11 AM EDT) Neisseria gonorrhoeae PCR Negative Negative LAB MOLECULAR DIAGNOSTICS METHOD 01/13/2025 4:06 PM EDT [facility] Chlamydia trachomatis PCR Negative Negative LAB MOLECULAR DIAGNOSTICS METHOD 01/13/2025 4:06 PM EDT [facility] Urine First stream urine specimen / Unknown Non-blood Collection / Unknown 01/13/2025 11:11 AM EDT 01/13/2025 11:11 AM EDT us Tlaya García MD LAB MICROBIOLOGY - GENERAL ORDERABLES Final Result [facility] [address] [place] [address], * Prostate specific antigen screen (01/13/2025 10:50 AM EDT) Pathologist [facility] PSA 0.41 0.00 - 4.00 ng/mL LAB CHEMISTRY METHOD 01/13/2025 12:51 PM EDT [facility] Blood Venous blood specimen / Unknown Venipuncture / Unknown 01/13/2025 10:50 AM EDT 01/13/2025 10:50 AM EDT Narrative [facility] - 01/13/2025 12:51 PM EDT The [employer]aur Chemiluminescent Immunoassay is used. Results obtained with different assay methods or kits cannot be used interchangeably. Results cannot be interpreted as absolute evidence of the presence or absence of malignant disease. us Talya García MD LAB BLOOD ORDERABL ES Final Result Performing Organization Address City/[facility]/ZIP Co de Phone Number [facility] [address] [place] [address], [place] [phone] * Hepatitis C antibody (01/13/2025 10:50 AM EDT) Pathologist [facility] Hepatitis C Antibody Negative Negative LAB CHEMISTRY METHOD 01/13/2025 1:31 PM EDT [facility] Blood Venous blood specimen / Unknown Venipuncture / Unknown 01/13/2025 10:50 AM EDT 01/13/2025 10:50 AM EDT Talya García MD LAB BLOOD ORDERABL ES Final Result [facility] [address] [place] [address], [place] [phone] * HIV 1,2 antibody, p24 antigen with reflex to differentiation (01/13/2025 10:50 AM EDT) Pathologist [facility] HIV Combo AB/AG Negative Negative LAB CHEMISTRY METHOD 01/13/2025 1:31 PM EDT [facility] Blood Venous blood specimen / Unknown Venipuncture / Unknown 01/13/2025 10:50 AM EDT 01/13/2025 10:50 AM EDT Narrative [facility] - 01/13/2025 1:31 PM EDT This assay is a 4th generation assay allowing for earlier detection of HIV infection by detecting the presence of the HIV-1 p24 antigen as well as the traditional antibodies to HIV type 1 (including group O) and type 2. Use of a 4th generation assay is the current CDC recommendation for HIV screening. us Talya García MD LAB BLOOD ORDERABL ES Final Result Performing Organization Address [facility] Co de Phone Number [facility] [address] [place] [address], [place] [phone] * Treponema pallidum antibody with reflex to RPR and particle agglutination (01/13/2025 10:50 AM EDT) Pathologist [facility] T. Pallidum Antibodies Negative Negative LAB CHEMISTRY METHOD 01/13/2025 1:58 PM EDT [facility] Blood Venous blood specimen / Unknown Venipuncture / Unknown 01/13/2025 10:50 AM EDT 01/13/2025 10:50 AM EDT us Talya García MD LAB BLOOD ORDERABL ES Final Result Performing Organization Address City/[facility]/ZIP Co de Phone Number [facility] [address] [place] [address], [place] [phone] * (ABNORMAL) Urinalysis with reflex microscopic and culture (12/30/2024 8:23 PM EDT) Pathologist [facility] Specific [place] Urine 1.015 1.003 - 1.030 LAB URINALYSIS - AUTOMATED METHOD 12/30/2024 9:13 PM EDT [facility] pH, Urine 5.5 5.0 - 8.0 pH LAB URINALYSIS - AUTOMATED METHOD 12/30/2024 9:13 PM [facility] Leukocytes, Urine Negative Negative LAB URINALYSIS - AUTOMATED METHOD 12/30/2024 9:13 PM [facility] Nitrite, Urine Negative Negative LAB URINALYSIS - AUTOMATED METHOD 12/30/2024 9:13 PM [facility] Protein, Urine 300(A) <=Trace mg/dL LAB URINALYSIS - AUTOMATED METHOD 12/30/2024 9:13 PM [facility] Glucose, Urine 100(A) Negative mg/dL LAB URINALYSIS - AUTOMATED METHOD 12/30/2024 9:13 PM [facility] Ketones, Urine Negative Negative mg/dL LAB URINALYSIS - AUTOMATED METHOD 12/30/2024 9:13 PM [facility] Urobilinogen, Urine 0.2 0.2 - 1.0 mg/dL LAB URINALYSIS - AUTOMATED METHOD 12/30/2024 9:13 PM [facility] Bilirubin, Urine Negative Negative LAB URINALYSIS - AUTOMATED METHOD 12/30/2024 9:13 PM [facility] Blood, Urine Trace(A) Negative LAB URINALYSIS - AUTOMATED METHOD 12/30/2024 9:13 PM [facility] RBC, Urine 5.7(H) 0 - 4 /HPF LAB URINALYSIS - AUTOMATED METHOD 12/30/2024 9:13 PM [facility] WBC, Urine 4.6(H) 0 - 4 /HPF LAB URINALYSIS - AUTOMATED METHOD 12/30/2024 9:13 PM [facility] Squamous Epithelial, Urine 80(H) 0 - 60 /LPF LAB URINALYSIS - AUTOMATED METHOD 12/30/2024 9:13 PM [facility] Bacteria, Urine Negative Negative /HPF LAB URINALYSIS - AUTOMATED METHOD 12/30/2024 9:13 PM EDT [facility] Hyaline Casts, Urine 2.4 0 - 3 /LPF LAB URINALYSIS - AUTOMATED METHOD 12/30/2024 9:13 PM EDT [facility] Urine Urine specimen obtained by clean catch procedure / Unknown Non-blood Collection / Unknown 12/30/2024 8:23 PM EDT 12/30/2024 9:01 PM EDT us Marisol Richard MD LAB URINE ORDERABLES Final Resul t [facility] [address] [place] [address], [place] [phone] * Gonzalez urine culture tube (12/30/2024 8:23 PM EDT) Extra Tube Hold for add-ons. 12/30/2024 10:02 PM EDT [facility] Comment:Auto resulted. Urine Urine specimen obtained by clean catch procedure / Unknown Non-blood Collection / Unknown 12/30/2024 8:23 PM EDT 12/30/2024 9:01 PM EDT us Marisol Richard MD LAB URINE ORDERABLES Final Resul t Performing Organization Address City/[facility]/ZIP Co de Phone Number [facility] [address] [place] [address], [place] [phone] * (ABNORMAL) CBC auto differential (12/30/2024 4:39 PM EDT) Only the most recent of2 resultswithin the time period is included. WBC 6.2 4.8 - 10.8 K/[facility] LAB HEMETOLOGY METHOD 12/30/2024 5:06 PM EDT [facility] RBC 3.30(L) 4.50 - 5.50 M/[facility] LAB HEMETOLOGY METHOD 12/30/2024 5:06 PM EDT [facility] Hemoglobin 9.3(L) 13.5 - 17.5 g/dL LAB HEMETOLOGY [facility] Hematocrit 28.8(L) 42.0 - 54.0 % LAB HEMETOLOGY METHOD 12/30/2024 5:06 PM [facility] MCV 88.1 79.0 - 98.0 FL LAB HEMETOLOGY METHOD 12/30[facility]2024 [facility] MCH 28.4 27.0 - 32.0 pcg LAB HEMETOLOGY METHOD 12/30/2024 5:06 PM [facility] MCHC 32.3 32.0 - 37.0 g/dL LAB HEMETOLOGY METHOD 12/30/2024 5:06 PM [facility] RDW 14.6 11.0 - 15.0 % LAB HEMETOLOGY METHOD 12/30/2024 5:06 PM [facility] Platelets 300 130 - 400 K/mcL LAB HEMETOLOGY METHOD 12/30/2024 5:06 PM [facility] MPV 10.2 7.0 - 11.0 FL LAB HEMETOLOGY METHOD 12/30/2024 5:06 PM [facility] NRBC 0.0 <1.0 % LAB HEMETOLOGY METHOD 12/30/2024 5:06 PM [facility] NRBC Absolute 0.00 <0.10 K/mcL LAB HEMETOLOGY METHOD 12/30/2024 5:06 PM [facility] Neutrophils Relative 56.5 % LAB HEMETOLOGY METHOD 12/30/2024 5:06 PM [facility] Lymphocytes Relative 29.3 % LAB HEMETOLOGY METHOD 12/30/2024 5:06 PM [facility] Monocytes Relative 8.4 % LAB HEMETOLOGY METHOD 12/30/2024 5:06 PM EDT [facility] Eosinophils Relative 4.8 % LAB HEMETOLOGY METHOD 12/30/2024 5:06 PM EDT [facility] Basophils Relative 0.8 % LAB HEMETOLOGY METHOD 12/30/2024 5:06 PM EDT [facility] Immature Granulocytes Relative 0.2 % LAB HEMETOLOGY METHOD 12/30/2024 5:06 PM EDT [facility] Neutrophils Absolute 3.52 1.50 - 7.00 K/mcL LAB HEMETOLOGY METHOD 12/30/2024 5:06 PM EDT [facility] Lymphocytes Absolute 1.82 1.00 - 5.00 K/mcL LAB HEMETOLOGY METHOD 12/30/2024 5:06 PM EDT [facility] Monocytes Absolute 0.52 0.20 - 1.00 K/mcL LAB HEMETOLOGY METHOD 12/30/2024 5:06 PM EDT [facility] Eosinophils Absolute 0.30 0.00 - 0.50 K/mcL LAB HEMETOLOGY METHOD 12/30/2024 5:06 PM EDT [facility] Basophils Absolute 0.05 0.00 - 0.20 K/mcL LAB HEMETOLOGY METHOD 12/30/2024 5:06 PM EDT [facility] Immature Granulocytes Absolute 0.01 0.00 - 0.03 K/mcL LAB HEMETOLOGY METHOD 12/30/2024 5:06 PM EDT [facility] Blood Venous blood specimen / Unknown Venipuncture / Unknown 12/30/2024 4:39 PM EDT 12/30/2024 4:56 PM EDT us Marisol Richard MD LAB BLOOD ORDERABLES Final Resul t [facility] [address] [place] [address], [place] [phone] * (ABNORMAL) Sedimentation rate, automated (12/30/2024 4:39 PM EDT) Only the most recent of2 resultswithin the time period is included. [facility] Sed Rate 85(H) 0 - 15 mm/hr LAB HEMETOLOGY METHOD 12/30/2024 5:06 PM EDT [facility] Blood Venous blood specimen / Unknown Venipuncture / Unknown 12/30/2024 4:39 PM EDT 12/30/2024 4:56 PM EDT Cee Aranda MD LAB BLOOD ORDERABLES Final Resul t [facility] [address] [place] [address], [place] [phone] * (ABNORMAL) Comprehensive metabolic panel (12/30/2024 4:39 PM EDT) [facility] Sodium 137 133 - 145 mmol/L LAB CHEMISTRY METHOD [facility] Potassium 5.2 3.5 - 5.5 mmol/L LAB CHEMISTRY METHOD 12/30/2024 5:29 PM [facility] Chloride 110 96 - 110 mmol/L LAB CHEMISTRY METHOD 12/30/2024 5:29 PM [facility] CO2 19(L) 21 - 32 mmol/L LAB CHEMISTRY METHOD 12/30/2024 5:29 PM [facility] Anion Gap 8 3 - 11 LAB CHEMISTRY METHOD 12/30/2024 5:29 PM [facility] Glucose 153(H) 70 - 100 mg/dL LAB CHEMISTRY METHOD 12/30/2024 5:29 PM [facility] BUN 68(H) 5 - 25 mg/dL LAB CHEMISTRY METHOD 12/30/2024 5:29 PM EDT [facility] Creatinine 5.19(H) 0.70 - 1.30 mg/dL LAB CHEMISTRY METHOD 12/30/2024 5:29 PM [facility] eGFR 13(L) >=60 mL/min/1. 73m2 LAB CHEMISTRY METHOD 12/30/2024 5:29 PM [facility] Comment:Calculation based on the Chronic Kidney Disease Epidemiology Collaboration (CKD-EPI) equation refit without adjustment for race. BUN/Creatinine Ratio 13.1 LAB CHEMISTRY METHOD 12/30/2024 5:29 PM [facility] Calcium 7.9(L) 8.5 - 10.5 mg/dL LAB CHEMISTRY METHOD 12/30/2024 5:29 PM [facility] AST (SGOT) 26 10 - 42 unit/L LAB CHEMISTRY METHOD 12/30/2024 5:29 PM [facility] ALT (SGPT) 50 10 - 60 unit/L LAB CHEMISTRY METHOD 12/30/2024 5:29 PM [facility] Alkaline Phosphatase 96 42 - 121 unit/L LAB CHEMISTRY METHOD 12/30/2024 5:29 PM [facility] Total Protein 6.5 6.0 - 8.0 g/dL LAB CHEMISTRY METHOD 12/30/2024 5:29 PM [facility] Albumin 3.1(L) 3.2 - 5.0 g/dL LAB CHEMISTRY METHOD 12/30/2024 5:29 PM [facility] Total Bilirubin 0.3 0.0 - 1.4 mg/dL LAB CHEMISTRY METHOD 12/30/2024 5:29 PM [facility] Blood Venous blood specimen / Unknown Venipuncture / Unknown 12/30/2024 4:39 PM EDT 12/30/2024 4:56 PM EDT Marislo Richard MD LAB BLOOD ORDERABLES Final Resul t Performing Organization Address City/State/[facility] Co de Phone Number [facility] [address] [place] [address], * (ABNORMAL) DOUG IFA with titer and pattern (12/09/2024 12:01 PM EDT) Pathologist [facility] DOUG Positive (A) Negative 12/12/2024 2:18 PM EDT [facility] Comment:DOUG performed by ind irect immunofluorescence (IFA) using HEp-2 substrate. DOUG Pattern Speckled (A) (none) 12/12/2024 2:18 PM EDT [facility] Comment: May be associated with SLE, Sjogren's syndrome, and mixed connective tissue disorder (MCTD). If clinical suspicion of Sjogren's syndrome consider testing for anti-Ro/SSA and anti-La/SSB. If clinical suspicion of mixed connective tissue disease, consider testing for anti-WIRED MUSIC OPERATOR. Titer 1:1280(A ) <1:160 12/12/2024 2:18 PM EDT [facility] Blood Venous blood specimen / Unknown Venipuncture / Unknown 12/09/2024 12:01 PM EDT 12/09/2024 12:01 PM EDT Harinder GRANADO LAB BLOOD ORDERABLES Final Res ult Performing Organization Address [facility]/ZIP Co de Phone Number [facility] [address] [place] [address], * Borrelia burgdorferi antibody (12/09/2024 12:01 PM EDT) [facility] Lyme Ab Negative Negative LAB CHEMISTRY METHOD 12/10/2024 11:15 AM EDT [facility] Comment: No laboratory evidence of infection with B. burgdorferi (Lyme disease). Negative results may occur in patients recently infected (<=14 days) with B. burgdorferi. If recent infection is suspected, repeat testing on a new sample collected in 7- 14 days is recommended. Blood Venous blood specimen / Unknown Venipuncture / Unknown 12/09/2024 12:01 PM EDT 12/09/2024 12:01 PM EDT Harinder GRANADO LAB BLOOD ORDERABLES Final Res ult Performing Organization Address [facility]/ZIP Co de Phone Number [facility] [address] [place] [address], [place] [phone] * Rheumatoid factor (12/09/2024 12:01 PM EDT) Rheumatoid Factor <10.0 <15.0 I Unit/mL LAB CHEMISTRY METHOD 12/09/2024 5:50 PM EDT [facility] Blood Venous blood specimen / Unknown Venipuncture / Unknown 12/09/2024 12:01 PM EDT 12/09/2024 12:01 PM EDT Harinder GRANADO LAB BLOOD ORDERABLES Final Res ult Performing Organization Address [facility] Co de Phone Number [facility] [address] [place] [address], [place] [phone] * Uric acid (12/09/2024 12:01 PM EDT) [facility] Uric Acid 6.0 3.7 - 9.2 mg/dL LAB CHEMISTRY METHOD 12/09/2024 5:50 PM EDT [facility] Blood Venous blood specimen / Unknown Venipuncture / Unknown 12/09/2024 12:01 PM EDT 12/09/2024 12:01 PM EDT Harinder GRANADO LAB BLOOD ORDERABLES Final Res ult Performing Organization Address City/[facility]/ZIP Co de Phone Number [facility] [address] [place] [address], [place] [phone] * (ABNORMAL) Iron and TIBC (11/18/2024 10:00 AM EDT) Iron 29(L) 50 - 160 mcg/dL LAB CHEMISTRY METHOD 11/18/2024 3:57 PM EDT [facility] TIBC 289 250 - 450 mcg/dL LAB CHEMISTRY METHOD 11/18/2024 3:57 PM EDT [facility] Iron Saturation 10(L) 20 - 50 % LAB CHEMISTRY METHOD 11/18/2024 3:57 PM EDT [facility] Blood Venous blood specimen / Unknown Venipuncture / Unknown 11/18/2024 10:00 AM EDT 11/18/2024 11:56 AM EDT us Hugo Green MD LAB BLOOD ORDERABLES Final Resu lt Performing Organization Address City/[facility]/ZIP Co de Phone Number [facility] [address] [place] [address], [place] [phone] * (ABNORMAL) Microalbumin creatinine urine ratio (11/18/2024 10:00 AM EDT) Creatinine, Urine 71.0 mg/dL LAB CHEMISTRY METHOD 11/18/2024 10:11 PM EDT [facility] Microalb, Ur 3,840.0(H ) 0.0 - 29.0 mg/L LAB CHEMISTRY METHOD 11/18/2024 10:11 PM EDT [facility] Microalb/Crea t Ratio 5,408(H) <30 mg/g creat LAB CHEMISTRY METHOD 11/18/2024 10:11 PM EDT [facility] Urine Urine specimen obtained by clean catch procedure / Unknown Non-blood Collection / Unknown 11/18/2024 10:00 AM EDT 11/18/2024 11:57 AM EDT us Hugo Green MD LAB URINE ORDERABLES Final Resu lt [facility] [address] [place] [address], [place] [phone] * (ABNORMAL) Vitamin D 25 hydroxy (11/18/2024 10:00 AM EDT) Vit D, 25-Hydroxy 20.6(L) 30.0 - 80.0 ng/mL LAB CHEMISTRY METHOD 11/18/2024 4:34 PM EDT [facility] Blood Venous blood specimen / Unknown Venipuncture / Unknown 11/18/2024 10:00 AM EDT 11/18/2024 11:56 AM EDT us Hugo Green MD LAB BLOOD ORDERABLES Final Resu lt Performing Organization Address [facility]/ZIP Co de Phone Number [facility] [address] [place] [address], [place] [phone] * (ABNORMAL) Parathyroid hormone intact (11/18/2024 10:00 AM EDT) PTH 541.1(H) 18.5 - 88.0 pcg/mL LAB CHEMISTRY METHOD 11/18/2024 4:37 PM EDT [facility] Blood Venous blood specimen / Unknown Venipuncture / Unknown 11/18/2024 10:00 AM EDT 11/18/2024 11:56 AM EDT us Hugo Green MD LAB BLOOD ORDERABLES Final Resu lt [facility] [address] [place] [address], [place] [phone] * (ABNORMAL) Ferritin (11/18/2024 10:00 AM EDT) Ferritin 14(L) 26 - 388 ng/mL LAB CHEMISTRY METHOD 11/18/2024 4:11 PM EDT [facility] Blood Venous blood specimen / Unknown Venipuncture / Unknown 11/18/2024 10:00 AM EDT 11/18/2024 11:56 AM EDT us Hugo Green MD LAB BLOOD ORDERABLES Final Resu lt [facility] [address] [place] [address], * (ABNORMAL) Renal function panel (11/18/2024 10:00 AM EDT) Sodium 136 133 - 145 mmol/L LAB CHEMISTRY METHOD 11/18/2024 4:11 PM [facility] Potassium 5.5 3.5 - 5.5 mmol/L LAB CHEMISTRY METHOD 11/18/2024 4:11 PM [facility] Chloride 110 96 - 110 mmol/L LAB CHEMISTRY METHOD 11/18/2024 4:11 PM [facility] CO2 23 21 - 32 mmol/L LAB CHEMISTRY METHOD 11/18/2024 4:11 PM [facility] Anion Gap 3 3 - 11 LAB CHEMISTRY METHOD 11/18/2024 4:11 PM [facility] Glucose 158(H) 70 - 100 mg/dL LAB CHEMISTRY METHOD 11/18/2024 4:11 PM [facility] BUN 72(H) 5 - 25 mg/dL LAB CHEMISTRY METHOD 11/18/2024 4:11 PM [facility] Creatinine 4.93(H) 0.70 - 1.30 mg/dL LAB CHEMISTRY METHOD 11/18/2024 4:11 PM [facility] eGFR 14(L) >=60 mL/min/1. 73m2 LAB CHEMISTRY METHOD 11/18/2024 4:11 PM [facility] Comment:Calculation based on the Chronic Kidney Disease Epidemiology Collaboration (CKD-EPI) equation refit without adjustment for race. BUN/Creatinine Ratio 14.6 LAB CHEMISTRY METHOD 11/18/2024 4:11 PM EDT [facility] Albumin 2.9(L) 3.2 - 5.0 g/dL LAB CHEMISTRY METHOD 11/18/2024 4:11 PM EDT [facility] Calcium 8.1(L) 8.5 - 10.5 mg/dL LAB CHEMISTRY METHOD 11/18/2024 4:11 PM EDT [facility] Phosphorus 5.4(H) 2.5 - 4.5 mg/dL LAB CHEMISTRY METHOD 11/18/2024 4:11 PM [facility] Blood Venous blood specimen / Unknown Venipuncture / Unknown 11/18/2024 10:00 AM EDT 11/18/2024 11:56 AM EDT us Hugo Green MD LAB BLOOD ORDERABLES Final Resu lt [facility] [address] [place] [address], [place] [phone] * (ABNORMAL) Lipid panel with reflex to direct LDL (08/24/2024 11:37 AM EDT) Cholesterol 263(H) 0 - 200 mg/dL LAB CHEMISTRY METHOD 08/24/2024 3:22 PM EDT [facility] Triglycerides 98 0 - 150 mg/dL LAB CHEMISTRY METHOD 08/24/2024 3:22 PM EDT [facility] HDL 71 >=40 mg/dL LAB CHEMISTRY METHOD 08/24/2024 3:22 PM EDT [facility] LDL Calculated 172(H) 0 - 100 mg/dL LAB CHEMISTRY METHOD 08/24/2024 3:22 PM T [facility] VLDL Cholesterol Nasir 19.6 mg/dL LAB CHEMISTRY METHOD 08/24/2024 3:22 PM EDT [facility] Non HDL Chol. (LDL+VLDL) 192(H) <145 mg/dL LAB CHEMISTRY METHOD 08/24/2024 3:22 PM EDT [facility] Chol/HDL Ratio 3.7 0.0 - 4.4 LAB CHEMISTRY METHOD 08/24/2024 3:22 PM EDT [facility] Blood Venous blood specimen / Unknown Venipuncture / Unknown 08/24/2024 11:37 AM EDT 08/24/2024 11:37 AM EDT Harinder GRANADO LAB BLOOD ORDERABLES Final Res ult Performing Organization Address City/[facility]/ZIP Co de Phone Number [facility] [address] [place] [address], [place] [phone] * Hemoglobin A1c (08/24/2024 11:37 AM EDT) Pathologist [facility] Hemoglobin A1C 6.4 <6.5 % LAB CHEMISTRY METHOD 08/24/2024 8:53 PM EDT [facility] Mean Bld Glu Estim. 137 mg/dL LAB CHEMISTRY METHOD 08/24/2024 8:53 PM EDT [facility] Blood Venous blood specimen / Unknown Venipuncture / Unknown 08/24/2024 11:37 AM EDT 08/24/2024 11:37 AM EDT Harinder GRANADO LAB BLOOD ORDERABLES Final Res ult [facility] [address] [place] [address], [place] [phone] * Hm Diabetes Eye Exam (03/24/2023) Pathologist [facility] Diabetes: Annual Retina Eye Exam Abstracted us Historical Provider HEALTH MAINTENANCE Final Result * External Colonoscopy Report (12/25/2021 11:06 AM EDT) Anatomical Region Laterality Modality Endoscopy us Historical Provider MD GI~PROCEDURE ORDERABLES F inal Result from Last 3 Months or Most Recently Relevant to Health Maintenance Insurance Member Subscriber Plan / Payer (Ef fective 2021-Present) Name:DARSHANA BLAYNE Relation to Subscriber:Self Name:Adela Quinonesan Payer ID:[id number] Group ID:[id number] Type:Not on file Address: [place] [place] [phone] Advance Directives Documents on File Type Date 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 Care Decision (hx) 12/07/2015 AD DEMARCO DIRECTIVE Health Care Decision (hx) 12/07/2015 AD DEMARCO DIRECTIVE Health Care Decision (hx) 12/07/2015 AD DEMARCO DIRECTIVE Health Care Decision (hx) 12/07/2015 AD DEMARCO DIRECTIVE Health Care Decision (hx) 12/07/2015 AD DEMARCO DIRECTIVE Health Care Decision (hx) 12/07/2015 AD DEMARCO DIRECTIVE Health Care Decision (hx) 12/07/2015 AD DEMARCO DIRECTIVE Health Care Decision (hx) 12/07/2015 AD DEMARCO DIRECTIVE Health Care Decision (hx) 12/07/2015 AD DEMARCO DIRECTIVE Health Care Decision (hx) 12/07/2015 AD DEMARCO DIRECTIVE Health Care Decision (hx) 12/07/2015 AD DEMARCO DIRECTIVE Health Care Decision (hx) 12/07/2015 AD DEMARCO DIRECTIVE Health Care Decision (hx) 12/07/2015 AD DEMARCO DIRECTIVE Health Care Decision (hx) 12/07/2015 AD DEMARCO DIRECTIVE Health Care Decision (hx) 12/07/2015 AD DEMARCO DIRECTIVE Health Care Decision (hx) 12/07/2015 AD DEMARCO DIRECTIVE Health Care Decision (hx) 12/07/2015 AD DEMARCO DIRECTIVE Health Care Decision (hx) 12/07/2015 AD DEMARCO DIRECTIVE * Full Code - Default (Latest Code Status on File) Date Activated Date Inactivated Comments 02/17/2024 2:46 PM 02/19/2024 2:12 PM This is orde r is used when code status has not been discussed with the patient, or code status is otherwise unknown/unconfirmed To update the patient's code status, place a code status order. Do not modify or discontinue any currently active code status orders. * Full Code - Default Date Activated Date Inactivated Comments 02/17/2024 12:23 PM 02/17/2024 2:46 PM This is ord er is used when code status has not been discussed with the patient, or code status is otherwise unknown/unconfirmed To update the patient's code status, place a code status order. Do not modify or discontinue any currently active code status orders. Care Teams Embroidery Worker Relationship Specialty Start Date End Date Talya García MD [address] [place] [id number] PCP - General Internal Medicine 01/19/24
--- OUTSIDE RECORDS SUMMARY | 2025-01-25 11:05 | XMS_ITS | Encounter Summary ---
Author Organization [employer] Address [address] [place] [address] Care Team Providers Care Retail Assistant Name Role Phone Talya García MD Primary Care Prov ider Reason for Visit * Reason Onset Date Comments PAULA NOTES 01/25/2025 Encounter Details Date Type Department Care Team (Late st Contact Info) Description 01/25/2025 Telephone Nephrology - [place] [address] [place] [phone] Hugo Green MD [address] [place] [phone] Social History Tobacco Use Types Packs/Day Years [...] for your loved ones. 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 [...] of Assessment Author No 12/30/2024 4:55 PM Karoline Sinclair RN * Are you blind or [...] documented in this encounter Progress Notes * Pennie Jefferson - 01/25/2025 10:45 AM EST Mable from [facility] is calling to request the pt's PAULA notes from 09/30. They can be faxed to [phone] documented in this encounter Plan of Treatment Upcoming Encounters Date Type Department Care Team (Late st Contact Info) Description 02/08/2025 9:30 AM EST Office Visit Adult Medicine [facility] [address] [place] [address] Harinder Lipscomb PA [address] [place] [address] 04/24/2025 1:40 PM EST Office Visit [facility] [address] [place] [address] Harjit Tomas NP [address] [place] [address] [address] [place] [address] documented as of this encounter Visit Diagnoses Not on filedocumented in this encounter Additional Health Concerns Assessment Noted Time PHQ-9 Depression Total Score: 10 09/20/2 025 4:16 PM EDT documented as of this encounter Care Teams Retail Assistant Relationship Specialty Start Date End Date Talya García MD [address] [place] [id number] PCP - General Internal Medicine 01/19/24 documented as of this encounter
--- OUTSIDE RECORDS SUMMARY | 2025-01-25 11:05 | XMS_ITS | Encounter Summary ---
Author Organization [employer] Address [address] [place] [address] Care Team Providers Care Risk Management Specialist Name Role Phone Talya García MD Primary Care Prov ider Reason for Visit * Reason Onset Date Comments Fitting for DME 01/24/2025 Encounter Details Date Type Department Care Team ([facility] Contact Info) Description 01/24/2025 Telephone Adult Medicine [facility] [address] [place] [phone] Olesya Hawk MA Social History Tobacco Use Types Packs/Day Years [...] of Assessment Author No 12/30/2024 4:55 PM EDAngelica Daily RN * Are you blind or do you have serious difficulty seeing, even when wearing glasses? Answer Date of Assessment Author No 12/30/2024 4:55 PM EDAngelica Daily, CAROL * Do you have serious difficulty walking or climbing stairs? Answer Date of Assessment Author No 12/30/2024 4:55 PM EDAngelica Daily, CAROL * Do you have serious difficulty dressing [...] documented in this encounter Progress Notes * Olesya Hawk MA - 01/24/2025 10:26 AM EST Patient needs an extra large electric chair lift to help him go from sitting to standing. Also a toliet lift and extra large compression stockings. He uses Gurmeet Patel MT. documented in this encounter Plan of Treatment Upcoming Encounters Date Type Department Care Team (Late st Contact Info) Description 02/08/2025 9:30 AM EST Office Visit Adult Medicine [facility] [address] [place] [address] Harinder Lipscomb PA [address] [place] [address] 04/24/2025 1:40 PM EST Office Visit [facility] [address] [place] [phone] Harjit Tomas NP [address] [place] [address] [address] [place] [phone] documented as of this encounter Visit Diagnoses Not on filedocumented in this encounter Additional Health Concerns Assessment Noted Time PHQ-9 Depression Total Score: 025 4:16 PM EDT documented as of this encounter Care Teams Risk Management Specialist Relationship Specialty Start Date End Date Talya García MD [address] [place] [phone] PCP - General Internal Medicine 01/19/24 documented as of this encounter
--- OUTSIDE RECORDS SUMMARY | 2025-01-25 11:05 | XMS_ITS | Clinical Summary ---
Author Organization [facility] Address [address] [facility] [address] [place] [address] Phone Care Team Providers Care Underground Mining Section Foreman Name Role Phone Harinder Lipscomb PA-C Primary Care Provider Allergies Active Allergy Reactions Criticality Noted Date Comments Acetaminophen Hives,Rash High 07/07/2007 Glipizide Other (see comments) 05/28/2017 Medications * This document contains information received from the source organization and may not represent a complete record from that organization. insulin glargine (Lantus SoloStar) 100 UNIT/ML injection 15 units at night, increase by 2 units every 2 days, hold if sugar under 70. 08/14/19 22 Active aspirin (ST BK) 81 MG EC tablet Take 81 mg by mouth 1 (one) time each day Active carvedilol (COREG) 3.125 MG tablet Take 3.125 mg by mouth in the morning and 3.125 mg in the evening. Take with meals. Active NIFEdipine CC (ADALAT CC) 90 MG 24 hr tabletIndications:Stag e 3b chronic kidney disease (HCC),Hypertension Take 1 tablet (90 mg total) by mouth 1 (one) time each day before breakfast Do not crush, chew, or split. 30 tablet 03/28/19 026 Active Cholecalciferol (Vitamin D3) 50 MCG (1999) tabletIndications:Kathia min D deficiency, not otherwise specified Take 2,000 Units by mouth 1 (one) time each day 30 tablet 06/02/19 026 Active losartan (Cozaar) 100 MG tablet Take 0.5 tablets (50 mg total) by mouth 1 (one) time each day 10/01/19 25 Active calcitriol (Rocaltrol) 0.25 MCG capsuleIndications:Sec ondary hyperparathyroidism of renal origin (HCC) Take 1 capsule (0.25 mcg total) by mouth 1 (one) time each day 90 capsule 3 10/01/19 25 026 Active Sodium Zirconium Cyclosilicate 5 g packIndications:Stage 5 chronic kidney disease (HCC),Hyperkalemia Take 1 packet by mouth every other day 16 each 2 12/02/19 25 025 Active cloNIDine (Ljpkhtdn-HAX-9) 0.2 MG/24HR patch weeklyIndications:Stag e 5 chronic kidney disease (HCC) Place 1 patch on the skin per week 13 patch 3 01/05/20 25 Active cloNIDine (Liavgdll-ZZZ-5) 0.2 MG/24HR patch weeklyIndications:Stag e 5 chronic kidney disease (HCC) Place 1 patch on the skin per week 13 patch 3 10/13/19 25 025 Disconti nued(Reo rder (does not appear on AVS)) Active Problems Problem Noted Date Diagnosed Date Anemia in chronic kidney disease 12/01/2024 Secondary hyperparathyroidism of renal origin Hyperkalemia 12/01/2024 Stage 5 chronic kidney disease 09/30/2024 Stage 3b chronic kidney disease 03/28/2024 Bilateral lower leg edema 03/28/2024 Proteinuria 09/09/2021 Stage 3a chronic kidney disease 08/29/2021 Family history of cancer of colon 08/29/2021 Vitamin D deficiency 08/14/2021 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 Dr. Fontaine. Pending intravitreal therapy and vitrectomy Diabetes mellitus 05/25/2018 Cannabis use, unspecified, uncomplicated 016 Microalbuminuria 10/10/2015 Hypertension 05/25/2014 Resolved Problems Problem Noted Date Diagnosed Date Resolved Date Depressive disorder 09/04/2021 09/06/19 22 Low back pain 09/04/2021 09/05/2021 Noncompliance with treatment 11/26/2018 09/05/2021 Overview (09/04/2021): States does not believe in medications poison will not take any medicine that is not a cure Lumbar radiculopathy 08/29/2015 022 Hyperlipidemia 05/25/2014 09/05/2021 Encounters * This document contains information received from the source organization and may not represent a complete record from that organization. Date Type Department Care Team Description 01/14/2025 Orders Only [facility] [address] [phone] Carolina Spring ARNP Stage 5 chronic kidney disease (HCC); Hypertension; Anemia in chronic kidney disease; Secondary hyperparathyroidism of renal origin (HCC) 01/02/2025 Refill [facility] [address] [phone] Jeovanny Terrazas MD Stage 5 chronic kidney disease (HCC) 12/29/2024 1:30 PM EDT Clinical Support [facility] [address] [phone] Anemia in chronic kidney disease (Primary Dx) 12/01/2024 1:45 PM EDT Office Visit [facility] [address] [phone] Carolina Spring ARNP Stage 5 chronic kidney disease (HCC) (Primary Dx); Hypertension; Anemia in chronic kidney disease; Secondary hyperparathyroidism of renal origin (HCC); Hyperkalemia; Vitamin D deficiency, not otherwise specified; Bilateral lower leg edema; Persistent proteinuria 11/29/2024 Orders Only [facility] [address] [phone] Dayanara Joaquin Stage 5 chronic kidney disease (HCC) (Primary Dx); Anemia in chronic kidney disease 11/18/2024 Orders Only [facility] [address] [phone] Hugo Green MD 11/14/2024 Orders Only [facility] [address] [phone] Hugo Green MD Stage 5 chronic kidney disease (HCC); Type 2 diabetes mellitus with diabetic chronic kidney disease (HCC); Other proteinuria; Hypertension 11/09/2024 10:30 AM EDT Clinical Support [facility] [address] [phone] Anemia, not otherwise specified (Primary Dx); Stage 5 chronic kidney disease (HCC) from Last 3 Months Immunizations Immunization Administration Dates Next Due Pfizer SARS-COV-2 10/18/2020 Family History Medical History Relation Comments Diabetes type II Father Diabetes type II Mother Relation Status Comments Father Mother Social History Tobacco Use Types Packs/Day Years Used Date Smoking Tobacco: Former Cigarettes Smokeless Tobacco: Never Tobacco Cessation:Counseling Given: Not Answered Alcohol Use Standard Drinks/Week Comments Yes 0 (1 standard drink = 0.6 oz pur e alcohol) weekends only Sex and Gender Information Value Date Recorded Sex Assigned at Not on file Legal Sex Male 8:47 AM EDT Gender Identity Not on file Sexual Orientation Not on file Last Filed Vital Signs Vital Sign Reading Time Taken Comments Blood Pressure 160/98 12/29/2024 4:14 PM EDT Pulse 55 12/01/2024 2:01 PM EDT Temperature - - Respiratory Rate - - Oxygen Saturation 98% 01/19/2023 3:20 PM EST Inhaled Oxygen Concentration - - Weight 113 kg (249 lb) 12/01/2024 2:01 PM EDT Height 188 cm (6' 2 ) 01/19/2023 3:20 PM EST Body Mass Index 31.97 01/19/2023 3:20 PM EST Plan of Treatment Upcoming Encounters Date Type Department Care Team (Late st Contact Info) Description 01/30/2025 3:30 PM EST Office Visit [facility] [address] [place] [phone] Carolina Spring ARNP [address] [phone] Health Maintenance Due Date Last Done Comments Hepatitis B Vaccine (1 of 3 - 19+ 3-dose series) 07/03/1994 Pneumococcal Vaccine: Peds ( 0 to 5 Years) and At-Risk Patients (6 to 49 Years) (1 of 2 - PCV) 07/03/1994 Diabetes: Ophthalmology Exam 08/28/2021 12/07/2014 Diabetes: Pedal Pulse Checked 08/28/2021 Diabetes: Sensory Foot Exam 08/28/2021 Diabetes: Visual Foot Exam 08/28/2021 Colorectal Cancer Screening: Annual FOBT 07/03/2024 Colorectal Cancer Screening: Colonoscopy 07/03/2024 Colorectal Cancer Screening: Sigmoidoscopy 07/03/2024 Influenza Vaccine (#1) 2024 Diabetes: Hemoglobin A1C 11/24/2024 025, 08/24/2024, 02/17/2024, Additional history exists Procedures Procedure Name Priority Date/Time Associated Diagnosis Comments POCT HEMOGLOBIN Routine 12/29/2024 4:14 PM EDT Anemia in chronic kidney disease URINE ALBUMIN / CREATININE RATIO Routine 11/18/2024 10:00 AM EDT CBC WITH AUTO DIFFERENTIAL Routine 11/18/2024 10:00 AM EDT RENAL FUNCTION PANEL Routine 11/18/2024 10:00 AM EDT Anemia, not otherwise specified Stage 5 chronic kidney disease (HCC) VITAMIN D 25 HYDROXY Routine 11/18/2024 10:00 AM EDT Stage 5 chronic kidney disease (HCC) Type 2 diabetes mellitus with diabetic chronic kidney disease (HCC) Other proteinuria Hypertension PTH, INTACT Routine 11/18/2024 10:00 AM EDT Stage 5 chronic kidney disease (HCC) Type 2 diabetes mellitus with diabetic chronic kidney disease (HCC) Other proteinuria Hypertension IRON PANEL (FE, TIBC, TSAT) Routine 11/18/2024 10:00 AM EDT Stage 5 chronic kidney disease (HCC) Type 2 diabetes mellitus with diabetic chronic kidney disease (HCC) Other proteinuria Hypertension FERRITIN Routine 11/18/2024 10:00 AM EDT Stage 5 chronic kidney disease (HCC) Type 2 diabetes mellitus with diabetic chronic kidney disease (HCC) Other proteinuria Hypertension POCT HEMOGLOBIN Routine 11/09/2024 12:24 PM EDT Anemia, not otherwise specified Stage 5 chronic kidney disease (HCC) from Last 3 Months Results * POCT hemoglobin (12/29/2024 4:14 PM EDT) Only the most recent of2 resultswithin the time period is included. [facility] Hemoglobin 11.1 Blood Capillary 12/29/2024 4:14 PM EDT Jeovanny Terrazas MD POINT OF CARE TEST ORDERABLES Fi nal Result * (ABNORMAL) CBC auto differential (11/18/2024 10:00 AM EDT) [facility] WBC 5.9 4.8 - 10.8 K/[facility] RBC 3.30(L) 4.50 - 5.50 M/[facility] Hgb 9.7(L) 13.5 - 17.5 g/dL [facility] Hematocrit 30.2(L) 42.0 - 54.0 % [facility] MCV 92.4 79.0 - 98.0 FL [facility] MCH 29.7 27.0 - 32.0 pcg [facility] MCHC 32.1 32.0 - 37.0 g/dL [facility] RDW 13.3 11.0 - 15.0 % [facility] Platelets 297 130 - 400 K/[facility] MPV 10.4 7.0 - 11.0 FL [facility] nRBC Count 0.0 <1.0 % [facility] NRBC Absolute 0.00 <0.10 K/[facility] Bands Relative 51.4 % [facility] Lymphocyte Realative Percent 31.7 % [facility] Monocyte Relative Percent 9.2 % [facility] Eosinophil Relative Percent 6.4 % [facility] Basophils Relative Diff 1.0 % [facility] Immature Granulocytes 0.3 % [facility] Neutrophils Absolute 3.03 1.50 - 7.00 K/[facility] Lymphocytes Absolute 1.87 1.00 - 5.00 K/[facility] Monocytes Absolute 0.54 0.20 - 1.00 K/[facility] Eosinophil Absolute 0.38 0.00 - 0.50 K/[facility] Basophil ABS 0.06 0.00 - 0.20 K/[facility] Immature Grans (Absolute) 0.02 0.00 - 0.03 K[facility] 11/18/2024 10:0 0 AM EDT 11/18/2024 12:00 PM EDT us Hugo Green MD LAB BLOOD ORDERABLES Final Resu lt [place] [facility] [address] [place] [address] * (ABNORMAL) Iron Panel (Fe, TIBC, TSAT) (11/18/2024 10:00 AM EDT) Iron 29(L) 50 - 160 mcg/dL [facility] TIBC 289 250 - 450 mcg/dL [facility] Iron Saturation (TSat) 10(L) 20 - 50 % [facility] Blood Venous blood / Unknown 11/18/2024 10:00 AM EDT 11/18/2024 11:56 AM EDT us Hugo Green MD LAB BLOOD ORDERABLES Final Resu lt Performing Organization Address City/[facility]/ZIP Co de Phone Number [facility] [address] [place] [address] * (ABNORMAL) Urine Albumin / Creatinine Ratio (11/18/2024 10:00 AM EDT) Creatinine, Urine 71.0 mg/dL [facility] Microalbumin Urine Random 3,840.0(H ) 0.0 - 29.0 mg/L [facility] Microalbumin/Cre atinine Ratio 5,408(H) <30 mg/g creat [facility] 11/18/2024 10:0 0 AM EDT 11/18/2024 11:57 AM EDT us Hugo Green MD LAB URINE ORDERABLES Final Resu lt Performing Organization Address [facility] de Phone Number [facility] [address] [place] [address] * (ABNORMAL) Vitamin D 25 hydroxy (11/18/2024 10:00 AM EDT) Vitamin D, 25-OH, Total 20.6(L) 30.0 - 80.0 ng/mL [facility] Blood Venous blood / Unknown 11/18/2024 10:00 AM EDT 11/18/2024 11:56 AM EDT us Hugo Green MD LAB BLOOD ORDERABLES Final Resu lt Performing Organization Address City/[facility]/ZIP Co de Phone Number [facility] [address] [place] [address] * (ABNORMAL) PTH, intact (11/18/2024 10:00 AM EDT) [facility] PTH 541.1(H) 18.5 - 88.0 pcg/mL [facility] Blood Venous blood / Unknown 11/18/2024 10:00 AM EDT 11/18/2024 11:56 AM EDT Hugo Green MD LAB BLOOD ORDERABLES Final Resu lt Performing Organization Address City/[facility]/ZIP Co de Phone Number [facility] [address] [place] [address] * (ABNORMAL) Ferritin (11/18/2024 10:00 AM EDT) [facility] Ferritin 14(L) 26 - 388 ng/mL [facility] Blood Venous blood / Unknown 11/18/2024 10:00 AM EDT 11/18/2024 11:56 AM EDT Hugo Green MD LAB BLOOD ORDERABLES Final Resu lt [facility] [address] [place] [address] * (ABNORMAL) Renal Function Panel (11/18/2024 10:00 AM EDT) [facility] Sodium 136 133 - 145 mmol/L [facility] Potassium 5.5 3.5 - 5.5 mmol/L [facility] Chloride 110 96 - 110 mmol/L [facility] Bicarbonate (CO2) 23 21 - 32 mmol/L [facility] Anion Gap 3 3 - 11 [facility] Glucose 158(H) 70 - 100 mg/dL [facility] BUN 72(H) 5 - 25 mg/dL [facility] Creatinine Serum 4.93(H) 0.70 - 1.30 mg/dL [facility] eGFR 14(L) >=60 mL/min/1. 73m2 [facility] Comment:Calculation based on the Chronic Kidney Disease Epidemiology Collaboration (CKD-EPI) equation refit without adjustment for race. BUN/Creatinine Ratio 14.6 [facility] Albumin 2.9(L) 3.2 - 5.0 g/dL [facility] Calcium 8.1(L) 8.5 - 10.5 mg/dL [facility] Phosphorus 5.4(H) 2.5 - 4.5 mg/dL [facility] Blood Venous blood / Unknown 11/18/2024 10:00 AM EDT 11/18/2024 11:56 AM EDT us Hugo Green MD LAB BLOOD ORDERABLES Final Resu lt [facility] [address] [place] [address] from Last [address] [place] [address] ([id number]) [place]AYL[place] [id number] ([id number]) [place] [phone] Care Teams [employer] Foreman Relationship Specialty Start Date End Date Harinder Lipscomb PA-C [address] [place] [phone] PCP - General Physician Imaging Manager 12/01/24
== END 2025-01-25 10:40 | disposition home or self-care (01) ==
LOC: HO.RHES 09:45
PROVIDERS: PCP Internal Medicine; Visit Provider Student in an Organized Health Care Education/Training Program
DX: M25.50 Pain in unspecified joint (principal); R76.89 Other specified abnormal immunological findings in serum
CPT/HCPCS: 99204

== ENCOUNTER 2025-02-03 13:32 | Outpatient (AMB) | payer OTHER, SELFPAY ==
--- OUTSIDE RECORDS SUMMARY | 2025-01-30 15:30 | XMS_ITS | Encounter Summary ---
Author Organization [facility] Address [address] [address] Phone Care Team Providers Care Manager Functional Name Role Phone Harinder Lipscomb PA-C Primary Care Provider Reason for Visit * Reason Comments Chronic Kidney Disease Encounter Details Date Type Department Care Team (Latest Contact Info) Description 01/30/2025 3:30 PM EST Office Visit [facility] [address] [phone] Carolina Spring ARNP [address] [phone] Stage 5 chronic kidney disease (HCC) (Primary Dx); Anemia in chronic kidney disease; Hypertension; Secondary hyperparathyroidism of renal origin (HCC); Bilateral lower leg edema; Hyperkalemia; Persistent proteinuria; Vitamin D deficiency, not otherwise specified Social History Tobacco Use Types Packs/Day Years [...] on file Sexual Orientation Not on file documented as of this encounter Last Filed Vital Signs Vital Sign Reading Time Taken Comments Blood Pressure 130/80 01/30/2025 3:53 PM EST Pulse 73 01/30/2025 3:37 PM EST Temperature - - Respiratory Rate - - Oxygen Saturation 99% 01/30/2025 3:37 PM EST Inhaled Oxygen Concentration - - Weight 117 kg (257 lb) 01/30/2025 3:37 PM EST Height - - Body Mass Index 33 01/19/2023 3:20 PM EST documented in this encounter Functional Status * BP Answer Date of Assessment Author 130/80 01/30/2025 3:53 PM EST Alejandrina Spring ARNP * Pulse Answer Date of Assessment Author 73 01/30/2025 3:37 PM EST Phi Welsh MA * SpO2 Answer Date of Assessment Author 99 01/30/2025 3:37 PM EST Phi Welsh, CAPO * Weight Answer Date of Assessment Author 4112 01/30/2025 3:37 PM EST Phi Welsh MA * BP Location Answer Date of Assessment Author Left upper arm 01/30/2025 3:53 PM EST Alejandrina Spring ARNP * BP Answer Date of Assessment Author 130/80 01/30/2025 3:53 PM EST Alejandrina Spring ARNP * Weight Answer Date of Assessment Author 4112 01/30/2025 3:37 PM EST Phi Welsh MA * BP Location Answer Date of Assessment Author Left upper arm 01/30/2025 3:53 PM EST Alejandrina Spring ARNP documented as of this encounter Plan of Treatment Upcoming Encounters Date Type Department Care Team (Late st Contact Info) Description 04/04/2025 3:15 PM EST Office [facility] [address] [phone] Carolina Spring ARNP [address] [phone] Scheduled Orders Name Type Priority Associated Diagnoses Orde r Schedule CBC Lab Routine Stage 5 chronic kidney disease (HCC) Anemia in chronic kidney disease Hypertension Secondary hyperparathyroidism of renal origin (HCC) Expected: 01/30/2025, Expires: 03/01/2026 Ferritin Lab Routine Stage 5 chronic kidney disease (HCC) Anemia in chronic kidney disease Hypertension Secondary hyperparathyroidism of renal origin (HCC) Expected: 01/30/2025, Expires: 03/01/2026 Iron Panel (Fe, TIBC, TSAT) Lab Routine Stage 5 chronic kidney disease (HCC) Anemia in chronic kidney disease Hypertension Secondary hyperparathyroidism of renal origin (HCC) Expected: 01/30/2025, Expires: 03/01/2026 Renal function panel Lab Routine Stage 5 chronic kidney disease (HCC) Anemia in chronic kidney disease Hypertension Secondary hyperparathyroidism of renal origin (HCC) Expected: 01/30/2025, Expires: 03/01/2026 PTH, intact Lab Routine Stage 5 chronic kidney disease (HCC) Anemia in chronic kidney disease Hypertension Secondary hyperparathyroidism of renal origin (HCC) Expected: 01/30/2025, Expires: 03/01/2026 documented as of this encounter Visit Diagnoses Diagnosis Stage 5 chronic kidney disease (HCC)- Primary Anemia in chronic kidney disease Hypertension Secondary hyperparathyroidism of renal origin (HCC) Secondary hyperparathyroidism of renal origin Bilateral lower leg edema Hyperkalemia Persistent proteinuria Vitamin D deficiency, not otherwise specified documented in this encounter Administered Medications Inactive Administered Medications - up to 3 most recent administrations Medication Order MAR Action Action Date Dose Rate Site Epoetin Tremayne-epbx solution 20,000 Units 20,000 Units, Injection, Once, On Thu01/30/25 at 1615, For 1 doseIndications:Anemia in chronic kidney disease Given 01/30/2025 4:01 PM EST 20,000 Units Left Arm documented in this encounter Care Teams Manager Functional Relationship Specialty Start Date End Date Harinder Lipscomb PA-C [address] [place] [address] PCP - General Physician Lapidary Apprentice 12/01/24 documented as of this encounter
--- OUTSIDE RECORDS SUMMARY | 2025-02-03 13:50 | XMS_ITS | Clinical Summary ---
Author Organization [facility] Address [address] [facility] [address] [place] [address] Phone Care Team Providers Care Insole Channeler Name Role Phone Harinder Lipscomb PA-C Primary [...] CC (ADALAT CC) 90 MG 24 hr tabletIndications:Stage 3b chronic kidney disease (HCC),Hypertension Take 1 tablet (90 mg total) by mouth 1 (one) time each day before breakfast Do not crush, chew, or split. 30 tablet 03/28/19 026 Active Cholecalciferol (Vitamin D3) 50 MCG (1999) tabletIndications:Vitam in D deficiency, not otherwise specified Take 2,000 Units by mouth 1 (one) time each day 30 tablet 06/02/19 026 Active losartan (Cozaar) 100 MG tablet Take 0.5 tablets (50 mg total) by mouth 1 (one) time each day 10/01/19 25 Active calcitriol (Rocaltrol) 0.25 MCG capsuleIndications:Seco ndary hyperparathyroidism of renal origin (HCC) Take 1 capsule (0.25 mcg total) by mouth 1 (one) time each day 90 capsule 3 10/01/19 25 026 Active Sodium Zirconium Cyclosilicate 5 g packIndications:Stage 5 chronic kidney disease (HCC),Hyperkalemia Take 1 packet by mouth every other day 16 each 2 12/02/19 25 025 Active cloNIDine (Yvofbiwv-BIA-8) 0.2 MG/24HR patch weeklyIndications:Stage 5 chronic kidney disease (HCC) Place 1 patch on the skin per week 13 patch 3 01/05/20 25 Active traZODone (DESYREL) 50 MG tablet Take 50 mg by mouth every night Active furosemide (LASIX) 20 MG tabletIndications:Stage 5 chronic kidney disease (HCC),Bilateral lower leg edema Take 1 tablet (20 mg total) by mouth every other day 15 tablet 2 01/31/20 25 026 Active Hospital, Clinic, or Other Facility Administered Medication Ordered Dose Route Frequency Start Date End Date Status Epoetin Tremayne-epbx solution 20,000 UnitsIndications:Anemia in chronic kidney disease 30139 Units IJ Once 01/30/2025 01/30/2025 E nded Active Problems Problem Noted Date Diagnosed Date [...] organization. Date Type Department Care Team Description 01/30/2025 3:30 PM EST Office Visit [facility] [address] [phone] Carolina Spring ARNP Stage 5 chronic kidney disease (HCC) (Primary Dx); Anemia in chronic kidney disease; Hypertension; Secondary hyperparathyroidism of renal origin (HCC); Bilateral lower leg edema; Hyperkalemia; Persistent proteinuria; Vitamin D deficiency, not otherwise specified 01/26/2025 Documentation Only [facility] [address] [phone] Nuria Welsh [place] 01/14/2025 Orders Only [facility] [address] [phone] Carolina Spring ARNP Stage 5 chronic kidney disease (HCC); Hypertension; Anemia in chronic kidney disease; Secondary hyperparathyroidism of renal origin (HCC) 01/02/2025 Refill [facility] [address] [phone] Jeovanny Terrazas MD Stage 5 chronic kidney disease (HCC) 12/29/2024 1:30 PM EDT Clinical Support [facility] [address] [phone] Anemia in chronic kidney disease (Primary Dx) 12/01/2024 1:45 PM EDT Office Visit [facility] [address] [phone] Renea SpringferJET Stage 5 chronic kidney disease (HCC) (Primary Dx); Hypertension; Anemia in chronic kidney disease; Secondary hyperparathyroidism of renal origin (HCC); Hyperkalemia; Vitamin D deficiency, not otherwise specified; Bilateral lower leg edema; Persistent proteinuria 11/29/2024 Orders Only [facility] [address] [phone] Emani, Dariana Stage 5 chronic kidney disease (HCC) (Primary Dx); Anemia in chronic kidney disease 11/18/2024 Orders Only [facility] [address] [phone] Hugo Green MD 11/14/2024 Orders Only [facility] [address] [phone] Hugo Green MD Stage 5 chronic kidney disease (HCC); Type 2 diabetes mellitus with diabetic chronic kidney disease (HCC); Other proteinuria; Hypertension 11/09/2024 10:30 AM EDT Clinical Support [facility] [address] [phone] Anemia, not otherwise specified (Primary Dx); Stage [...] (257 lb) 01/30/2025 3:37 PM EST Height 188 cm (6' 2 ) 01/19/2023 3:20 PM EST Body Mass Index 33 01/19/2023 3:20 PM EST Plan of Treatment Upcoming Encounters Date Type Department Care Team (Late st Contact Info) Description 04/04/2025 3:15 PM EST Office Visit [facility] [address] [phone] Carolina Spring ARNP [address] [phone] Health Maintenance Due Date Last Done Comments [...] Procedure Name Priority Date/Time Associated Diagnosis Comments EXT RESULT ENTRY Routine 01/25/2025 POCT HEMOGLOBIN Routine 12/29/2024 4:14 PM EDT [...] (HCC) from Last 3 Months Results * (ABNORMAL) EXT RESULT ENTRY (01/25/2025) Hemoglobin 8.6(A) 13.5 - 17.5 Hematocrit 26.6(A) 41.0 - 53.0 Platelets 271 150 - 399 10*3/UL 01/25/2025 us Historical Provider LAB BLOOD ORDERABLES Randa l Result * POCT hemoglobin (12/29/2024 4:14 PM EDT) Only the most recent of2 resultswithin the time period is included. Hemoglobin 11.1 Blood Capillary 12/29/2024 4 :14 PM EDT Jeovanny Terrazas MD POINT OF CARE TEST ORDERABLES Fi nal Result * (ABNORMAL) CBC auto differential (11/18/2024 10:00 AM EDT) WBC 5.9 4.8 - 10.8 K/[facility] RBC 3.30(L) 4.50 - 5.50 M/[facility] Hgb 9.7(L) 13.5 - 17.5 g/dL [facility] Hematocrit 30.2(L) 42.0 - 54.0 % [facility] MCV 92.4 79.0 - 98.0 FL [facility] MCH 29.7 27.0 - 32.0 pcg [facility] MCHC 32.1 32.0 - 37.0 g/dL [facility] RDW 13.3 11.0 - 15.0 % [facility] Platelets 297 130 - 400 [facility] MPV 10.4 7.0 - 11.0 [facility] nRBC Count 0.0 <1.0 % [facility] NRBC Absolute 0.00 <0.10 K[facility] Bands Relative 51.4 % [facility] Lymphocyte Realative Percent 31.7 % [facility] Monocyte Relative Percent 9.2 % [facility] Eosinophil Relative Percent 6.4 % [facility] Basophils Relative Diff 1.0 % [facility] Immature Granulocytes 0.3 % [facility] Neutrophils Absolute 3.03 1.50 - 7.00 K[facility] Lymphocytes Absolute 1.87 1.00 - 5.00 K[facility] Monocytes Absolute 0.54 0.20 - 1.00 [facility] Eosinophil Absolute 0.38 0.00 - 0.50 K[facility] Basophil ABS 0.06 0.00 - 0.20 [facility] Immature Grans (Absolute) 0.02 0.00 - 0.03 [facility] 11/18/2024 10:0 0 AM EDT 11/18/2024 12:00 PM EDT Hugo Green MD LAB BLOOD ORDERABLES Final Resu lt Performing Organization Address City/[facility]/ZIP Co de Phone Number [facility] [address] [place] [address] * (ABNORMAL) Iron Panel (Fe, TIBC, TSAT) (11/18/2024 10:00 AM EDT) Iron 29(L) 50 - 160 mcg/dL [facility] TIBC 289 250 - 450 mcg/dL [facility] Iron Saturation (TSat) 10(L) 20 - 50 % [facility] Blood Venous blood / Unknown 11/18/2024 10:00 AM EDT 11/18/2024 11:56 AM EDT Hugo Green MD LAB BLOOD ORDERABLES Final Resu lt Performing Organization Address City/[facility]/ZIP Co de Phone Number [facility] [address] [place] [address] * (ABNORMAL) Urine Albumin / Creatinine Ratio (11/18/2024 10:00 AM EDT) Creatinine, Urine 71.0 mg/dL [facility] Microalbumin Urine Random 3,840.0(H ) 0.0 - 29.0 mg/L [facility] Microalbumin/Cre atinine Ratio 5,408(H) <30 mg/g creat [facility] 11/18/2024 10:0 0 AM EDT 11/18/2024 11:57 AM EDT us Hugo Green MD LAB URINE ORDERABLES Final Resu lt Performing Organization Address City/[facility] Co de Phone Number [facility] [address] [place] [address] * (ABNORMAL) Vitamin D 25 hydroxy (11/18/2024 10:00 AM EDT) Vitamin D, 25-OH, Total 20.6(L) 30.0 - 80.0 ng/mL [facility] Blood Venous blood / Unknown 11/18/2024 10:00 AM EDT 11/18/2024 11:56 AM EDT us Hugo Green MD LAB BLOOD ORDERABLES Final Resu lt Performing Organization Address [facility] Co de Phone Number [facility] [address] [place] [address] * (ABNORMAL) PTH, intact (11/18/2024 10:00 AM EDT) PTH 541.1(H) 18.5 - 88.0 pcg/mL [facility] Blood Venous blood / Unknown 11/18/2024 10:00 AM EDT 11/18/2024 11:56 AM EDT us Hugo Green MD LAB BLOOD ORDERABLES Final Resu lt Performing Organization Address City/[facility]/ZIP Co de Phone Number [facility] [address] [place] [address] * (ABNORMAL) Ferritin (11/18/2024 10:00 AM EDT) [facility] Ferritin 14(L) 26 - 388 ng/mL [facility] Blood Venous blood / Unknown 11/18/2024 10:00 AM EDT 11/18/2024 11:56 AM EDT us Hugo Green MD LAB BLOOD ORDERABLES Final Resu lt [facility] [address] [place] [address] * (ABNORMAL) Renal Function Panel (11/18/2024 10:00 AM EDT) [facility] Sodium 136 133 - 145 mmol/L [facility] Potassium 5.5 3.5 - 5.5 mmol/L [facility] Chloride 110 96 - 110 mmol/L [facility] Bicarbonate (CO2) 23 21 - 32 mmol/L [facility] Anion Gap 3 3 - 11 [facility] Glucose 158(H) 70 - 100 mg/dL [facility] BUN 72(H) 5 - 25 mg/dL [facility] Creatinine Serum 4.93(H) 0.70 - 1.30 mg/dL [facility] eGFR 14(L) >=60 mL/min/1. 73m2 [facility] Comment:Calculation based on the Chronic Kidney Disease Epidemiology Collaboration (CKD-EPI) equation refit without adjustment for race. BUN/Creatinine Ratio 14.6 [facility] Albumin 2.9(L) 3.2 - 5.0 g/dL [facility] Calcium 8.1(L) 8.5 - 10.5 mg/dL [facility] Phosphorus 5.4(H) 2.5 - 4.5 mg/dL [facility] Blood Venous blood / Unknown 11/18/2024 10:00 AM EDT 11/18/2024 11:56 AM EDT us Hugo Green MD LAB BLOOD ORDERABLES Final Resu lt [facility] [address] [place] [address] from Last 3 Months Insurance ([id number]) [facility] ([id number]) Care Teams Insole Channeler Relationship Specialty Start Date End Date Harinder Lipscomb PA-C [address] [place] [phone] PCP - General Physician Beet End Supervisor 12/01/24
--- OUTSIDE RECORDS SUMMARY | 2025-02-03 13:50 | XMS_ITS | Encounter Summary ---
Author Organization [employer] Address [address] [place] [address] Care Team Providers Care Bottom Liner Name Role Phone Talya García MD Primary Care Prov ider Reason for Referral * Consultation (Routine) - Closed Specialty Diagnoses / Procedures Referred By Jeronimo luis Referred To Contact Neurology Diagnoses Cervicogenic headache Nerve pain Talya García MD [address] [place] [address] Phone: tel: fax: [employer] [address] [facility] [address] [place] [address] Phone: tel: fax: Referral ID Status Reason Start Date Expiration Date V isits Requested Visits Authorized [id number] Closed Consult and Treat 01/10/2025 01/10/2026 1 1 Reason for Visit * Reason Onset Date Comments Referral 01/10/2025 Neurology Encounter Details Date Type Department Care Team ([facility] st Contact Info) Description 01/10/2025 Telephone Adult Medicine - [place] [address] [place] [phone] Talya García MD [address] [place] [address] Social History Tobacco Use Types Packs/Day Years [...] care for your loved ones. For example, vocational childcare teacher or elderly care for an older [...] 02/08/2025 9:30 AM EST Office Visit Adult [address] [phone] Harinder Lipscomb PA [address] [place] [address] 02/23/2025 8:10 AM EST Consult [facility] Cardiology [facility] [address] [place] [phone] Yesi Doshi NP [address] [place] [address] Dr [address] [place] [address] 04/24/2025 1:40 PM EST Office Visit [facility] Cardiology [facility] [address] [place] [address] Harjit Tomas NP [address] [place] [address] Dr [address] [place] [address] Scheduled Referrals Name Type Priority Associated Diagnoses Order Schedule Ambulatory referral to Neurology Outpatient Referral Routine Cervicogenic headache Nerve pain Expected: 01/10/2025, Expires: 01/10/2026 documented as of this encounter Visit Diagnoses Diagnosis Nerve pain- Primary Unspecified neuralgia, neuritis, and radiculitis Cervicogenic headache Headache Type 2 diabetes mellitus with other diabetic neurological complication ([facility] V24, [facility] V28) documented in this encounter Additional Health Concerns Assessment Noted Time PHQ-9 Depression Total Score: 10 025 4:16 PM EDT documented as of this encounter Care Teams Bottom Liner Relationship Specialty Start Date End Date Talya García MD [address] [place] [id number] PCP - General Internal Medicine 01/19/24 documented as of this encounter
--- OUTSIDE RECORDS SUMMARY | 2025-02-03 13:50 | XMS_ITS | Encounter Summary ---
Author Organization [facility] Address [address] [place] [address] Care Team Providers Care Certified Scrub Tech Name Role Phone Talya García MD Primary Care Prov ider Reason for Visit * Reason Onset Date Comments Fitting for DME 01/24/2025 Encounter Details Date Type Department Care Team ([facility] Contact Info) Description 01/24/2025 Telephone Adult Medicine [facility] [address] [place] [phone] Olesya Hawk MA Social History Tobacco Use [...] for your loved ones. For example, children's aide or elderly care for an older adult? [...] documented in this encounter Progress Notes * Oscar Cat MA - 01/31/2025 12:33 PM EST Faxed to Amanda with notes. * Oscar Cat MA - 01/26/2025 3:08 PM EST Placed all orders in pcp's in basket besides compression stocking script was done at the visit. Will fax along with notes once signed. * Olesya Hawk MA - 01/24/2025 10:26 AM EST Patient needs an extra large electric chair lift to help him go from sitting to standing. Also a toliet lift and extra large compression stockings. He uses Amanda [place]. documented in this encounter Plan of Treatment Upcoming Encounters Date Type Department Care Team (Late st Contact Info) Description 02/08/2025 9:30 AM EST Office Visit Adult Medicine - [place] [address] [place] [phone] Harinder Lipscomb PA [address] [place] [address] 02/23/2025 8:10 AM EST Consult [facility] Cardiology [facility] [address] [place] [phone] Yesi Doshi NP [address] [place] [address] Dr [address] [place] [address] 04/24/2025 1:40 PM EST Office Visit [facility] [address] [place] [address] Harjit Tomas NP [address] [place] [address] Dr [address] [place] [address] documented as of this encounter Visit Diagnoses Diagnosis Stage 3a chronic kidney disease (CMS/[facility] V24, CMS/HCC V28)- Primary Renal failure, unspecified chronicity Edema, unspecified type Generalized muscle weakness Muscle weakness (generalized) Diabetes mellitus with peripheral vascular disease (CMS/HCC V24, CMS/HCC V28) Pedal edema Edema documented in this encounter Orders General Supply Count Last Ordered Date First Or dered Date POWER LIFT RECLINER 1 01/26/2025 SHOWER CHAIR 1 01/26/2025 TOILET SEAT, RAISED 1 01/26/2025 documented in this encounter Additional Health Concerns Assessment Noted Time PHQ-9 Depression Total Score: 10 12/03/ 025 4:16 PM EDT documented as of this encounter Care Teams Certified Scrub Tech Relationship Specialty Start Date End Date Talya García MD [address] [place] [phone] PCP - General Internal Medicine 01/19/24 documented as of this encounter
--- OUTSIDE RECORDS SUMMARY | 2025-02-03 13:50 | XMS_ITS | Encounter Summary ---
Author Organization [employer] Address [address] [place] [address] Care Team Providers Care Shovel Oiler Name Role Phone Talya García MD Primary Care Prov ider Reason for Visit * Reason Onset Date Comments PAULA NOTES 01/25/2025 Encounter Details Date Type Department Care Team (Late st Contact Info) Description 01/25/2025 Telephone Nephrology - [place] [address] [place] [phone] Hugo Green MD [address] [place] [place] [address] Social History Tobacco Use Types Packs/Day Years [...] for your loved ones. For example, child center assistant or elderly care for an older [...] documented in this encounter Progress Notes * Deedee Maher - 01/26/2025 10:28 AM EST [facility] Rheumatology office is calling to follow up on below notes request. Advised this was sent yesterday afternoon. They did not receive. When I went to confirm fax number, fax number was taken down incorrectly. She is asking if we can please refax to [phone] * Pennie Jefferson - 01/25/2025 10:45 AM EST Mable from [facility] is calling to request the pt's PAULA notes from 09/30. They can be faxed to [phone] documented in this encounter Plan of Treatment Upcoming Encounters Date Type Department Care Team (Late st Contact Info) Description 02/08/2025 9:30 AM EST Office Visit Adult Medicine - [place] [address] [place] [address] Harinder Lipscomb PA [address] [place] [address] 02/23/2025 8:10 AM EST Consult [facility] Cardiology [facility] [address] [place] [address] [place] [address] Yesi Doshi NP [address] [place] [address] Dr [address] [place] [address] 04/24/2025 1:40 PM EST Office Visit [facility] [address] [place] [address] Harjit Tomas NP [address] [place] [address] Dr [address] [place] [address] documented as of this encounter Visit Diagnoses Not on filedocumented in this encounter Additional Health Concerns Assessment Noted Time PHQ-9 Depression Total Score: 10 025 4:16 PM EDT documented as of this encounter Care Teams Shovel Oiler Relationship Specialty Start Date End Date Talya García MD [address] [place] [address] PCP - General Internal Medicine 01/19/24 documented as of this encounter
--- OUTSIDE RECORDS SUMMARY | 2025-02-03 13:50 | XMS_ITS | Encounter Summary ---
Author Organization [employer] Address [address] [place] [address] Care Team Providers Care Ticket Clerk Name Role Phone Talya García MD Primary Care Prov ider Encounter Details Date Type Department Care Team ([facility] st Contact Info) Description 12/12/2024 Results Follow-Up Adult Medicine - [place] [address] [place] [address] Harinder Lipscomb PA [address] [place] [address] Social History Tobacco Use Types Packs/Day Years [...] for your loved ones. For example, children's lunchroom supervisor or elderly care for an older adult? [...] 9:30 AM EST Office Visit Adult Medicine [facility] [address] [place] [address] Harinder Lipscomb PA [address] [place] [address] 02/23/2025 8:10 AM EST Consult [facility] [address] [place] [address] Yesi Doshi NP [address] [place] [address] Dr [address] [place] [address] 04/24/2025 1:40 PM EST Office Visit [place] [facility] [place] [address] Harjit Tomas NP [address] [place] [address] Dr [address] [place] [address] documented as of this encounter Visit Diagnoses Diagnosis Positive DOUG (antinuclear antibody)- Primary Other and unspecified nonspecific immunological findings documented in this encounter Additional Health Concerns Assessment Noted Time PHQ-9 Depression Total Score: 10 025 4:16 PM EDT documented as of this encounter Care Teams Ticket Clerk Relationship Specialty Start Date End Date Talya García MD [address] [place] [id number] PCP - General Internal Medicine 01/19/24 documented as of this encounter
--- OUTSIDE RECORDS SUMMARY | 2025-02-03 13:50 | XMS_ITS | Clinical Summary ---
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 270 each 3 5 026 Active losartan (COZAAR) 100 mg tabletIndications: Coronary artery disease with angina pectoris, unspecified vessel or lesion type, unspecified whether seneca-cayuga or transplanted heart (CMS/HCC V24),Dyspnea, unspecified type,Hyperlipidemi [...] DAILY 45 mL 1 5 Active cloNIDine ([id number]) 0.2 mg/[address] 1 patch on [...] diabetes mellitus with other diabetic neurological complication ([facility] V24, [facility] V28) INJECT 15 UNITS AT NIGHT, INCREASE [...] 06/03/2023 Non-STEMI (non-ST elevated m yocardial infarction) ([facility] V24, [facility] V28) 06/03/2023 Overview (12/14/2023): Bifurcation. 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 Dr. Fontaine. 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 Dr. Fontaine. Diabetes mellitus with perip heral vascular disease ([facility] V24, [facility] V28) 05/25/2018 Marijuana use 10/23/2015 Microalbuminuria 10/10/2015 Type II or unspecified type diabetes mellitus with renal manifestations, uncontrolled(250.42) ([facility] V24, [facility] V28) 10/10/2015 Overview (12/14/2023): Type II diabetes [...] mellitus wit h neurological manifestations, controlled ([facility] V24, [facility] V28) 05/25/2014 Overview (12/14/2023): Type II or unspecified type diabetes mellitus with neurological manifestations, not stated as uncontrolled Encounters Date Type Department Care Team Description 01/25/2025 Telephone Nephrology - [address] [phone] Hugo Green MD 01/24/2025 10:00 AM EST Office Visit Adult Medicine [address] [phone] Talya Adames MD Generalized muscle weakness (Primary Dx); 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, with long-term current use of insulin, macular edema presence unspecified, unspecified laterality, unspecified prol* (CMS/HCC V24, CMS/HCC V28); Insomnia due to medical condition; Pedal edema; Renal failure, unspecified chronicity 01/24/[address] [phone] [place] 01/20/[address] [phone] Talya Adames MD 01/13/2025 10:50 AM EDT Lab Draw Station [address] Benign prostatic hyperplasia with urinary frequency; Screen for STD (sexually transmitted disease) 01/13/2025 10:00 AM EDT Office Visit [address] [phone] Talya Adames MD Type 2 diabetes mellitus with neurological manifestations, controlled ([facility] V24, [facility] V28) (Primary Dx); Diabetic polyneuropathy associated with type 2 diabetes mellitus (CMS/HCC V24, CMS/HCC V28); Drug allergy; Positive DOUG (antinuclear antibody); STD (male); Benign prostatic hyperplasia with urinary frequency; Screen for STD (sexually transmitted disease) 01/13/2025 Results Follow-Up [address] [phone] Talya Adames MD 01/10/[address] [phone] Talya Adames MD 01/10/[address] [phone] Talya Adames MD 01/10/2025 Telephone Adult Medicine - [place] [address] [place] [address] Talya Adames MD 01/10/2025 Telephone Adult Medicine - [place] [address] [place] [address] Talya Adames MD 01/06/2025 Telephone [facility] Cardiology [facility] [address] [facility] [address] [place] [phone] Provider, Not In System 01/03/2025 Telephone Adult Medicine - [place] [address] [place] [address] Talya Adames MD 12/30/2024 3:27 PM EDT - 12/30/2024 10:49 PM EDT Emergency [facility] [address] [place] [address] Marisol Richard MD Goebel, Mathew, MD Other fatigue (Primary Dx); Body aches; Chronic bilateral back pain, unspecified back location Discharge Disposition: Home or Self Care 12/30/2024 Telephone Adult Medicine - [place] [address] [place] [phone] Talya Adames MD 12/20/[address] [place] [phone] Provider, Not In System 12/12/2024 Results Follow-Up Adult Medicine - [place] [address] [place] [address] Harinder Lipscomb PA 12/09/2024 11:15 AM EDT Office Visit Adult Medicine [facility] [address] [place] [address] Harinder Lipscomb PA 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, with long-term current use of insulin, macular edema presence unspecified, unspecified laterality, unspecified prol* (CMS/HCC V24, CMS/HCC V28) (Primary Dx); Type 2 diabetes mellitus with neurological manifestations, controlled (CMS/HCC V24, [facility] V28); Coronary artery disease without angina pectoris, unspecified vessel or lesion type, unspecified whether seneca-cayuga or transplanted heart; Complaints of total body pain; Elevated serum creatinine; ESRD (end stage renal disease) ([facility] V24, [facility] V28) 11/21/2024 Telephone [facility] [address] [place] [address] Talya Adames MD 11/17/2024 Telephone [facility] Worker [facility] [address] [place] [address] Leif An from Last 3 Months Immunizations Immunization Administration Dates Next Due Pfizer SARS-CoV-2 COVID-19, mRNA, LNP-S, preservative free 10/18/2020 Surgical History Surgery Date Site/Laterality Comments EYE SURGERY 06/07/2024 Right Medical History Medical History Date Comments Snoring 08/04/2023 CAD (coronary artery disease) 07/30/2023 Chest pain 06/03/2023 History of cardiac catheterization 06/03/2023 Done on 04/29/23 at [facility] with KM indications: NSTEMI Non-STEMI (non-ST elevated m yocardial infarction) ([facility] V24, [facility] V28) 06/03/2023 Bifurcation. ZAIKA stentin the LAD and diagonal echocardiogram shows normal left ventricular ejection fraction Elevated serum creatinine 10/30/2022 Dyspnea 06/02/2022 Family history of colon canc er in father 08/29/2021 Stage 3a chronic kidney dise ase (CKD) ([facility] V24, [facility] V28) 08/29/2021 Vitamin D deficiency 08/14/2021 Non-compliance with treatment 11/26/2018 [facility] [place] does not believe in medicationspoison will not take any medicine that is not a cure Type 2 diabetes mellitus wit h proliferative retinopathy ([facility] V24, [facility] V28) 11/23/[address] Fontaine Marijuana use 10/23/2015 Microalbuminuria 10/10/2015 Lumbar radicular pain 08/29/2015 Hyperlipidemia 05/25/2014 Primary hypertension 05/25/2014 Type II or unspecified type diabetes mellitus with neurological manifestations, not stated as uncontrolled(250.60) ([facility] V24, [facility] V28) 05/25/2014 Family History Medical History Relation Name Comments Heart disease Brother Eugene Colon cancer Father ESRD Father Valvular heart [...] your loved ones. For example, early childhood associate or elderly care for an older adult? [...] AM EST Office Visit Adult Medicine - [place] [address] [place] [phone] Harinder Lipscomb PA [address] [place] [address] 02/23/2025 8:10 AM EST Consult [facility] [address] [place] [phone] Yesi Doshi NP [address] [place] [address] Dr [address] [place] [address] 04/24/2025 1:40 PM EST Office Visit [facility] Cardiology [facility] [address] [place] [address] Harjit Tomas NP [address] [place] [address] Dr [address] [place] [address] Health Maintenance Due Date Last Done Comments [...] Anemia, unspecified Chronic kidney disease, stage V ([facility] V24, [facility] V28) MICROALBUMIN CREATININE URINE RATIO Routine 11/18/2024 10:00 AM EDT Anemia, unspecified Chronic kidney disease, stage V ([facility] V24, [facility] V28) VITAMIN D 25 HYDROXY Routine 11/18/2024 10:00 AM EDT Anemia, unspecified Chronic kidney disease, stage V ([facility] V24, [facility] V28) HEMOGLOBIN A1C Routine 08/24/2024 11:37 AM EDT Type 2 diabetes mellitus with neurological manifestations, controlled ([facility] V24, [facility] V28) LIPID PANEL WITH REFLEX TO DIRECT LDL Routine 08/24/2024 11:37 AM EDT Type 2 diabetes mellitus with neurological manifestations, controlled ([facility] V24, [facility] V28) DIABETES EYE EXAM Routine 03/24/2023 EXTERNAL [...] 11:11 AM EDT 01/13/2025 11:11 AM EDT Talya García MD LAB MICROBIOLOGY - GENERAL ORDERABLES Final Result Performing Organization Address [facility]/ZIP Co de Phone Number [facility] [address] [place] [address], [place] [phone] * Prostate specific antigen screen (01/13/2025 10:50 AM EDT) PSA 0.41 0.00 - 4.00 ng/mL LAB CHEMISTRY METHOD 01/13/2025 12:51 PM EDT [facility] Blood Venous blood specimen / Unknown Venipuncture / Unknown 01/13/2025 10:50 AM EDT 01/13/2025 10:50 AM EDT Narrative [facility] - 01/13/2025 12:51 PM EDT The Siemens [employer] Chemiluminescent Immunoassay is used. Results obtained with different assay methods or kits cannot be used interchangeably. Results cannot be interpreted as absolute evidence of the presence or absence of malignant disease. Talya García MD LAB BLOOD ORDERABL ES Final Result Performing Organization Address [facility] de Phone Number [facility] [address] [place] [address], [place] [phone] * Hepatitis C antibody (01/13/2025 10:50 AM EDT) Pathologist [facility] Hepatitis C Antibody Negative Negative LAB CHEMISTRY METHOD 01/13/2025 1:31 PM EDT [facility] Blood Venous blood specimen / Unknown Venipuncture / Unknown 01/13/2025 10:50 AM EDT 01/13/2025 10:50 AM EDT Talya García MD LAB BLOOD ORDERABL ES Final Result Performing Organization Address [facility] Co de Phone Number [facility] [address] [place] [address], [place] [phone] * HIV 1,2 antibody, p24 antigen with reflex to differentiation (01/13/2025 10:50 AM EDT) [facility] HIV Combo AB/AG Negative Negative LAB CHEMISTRY [...] the current CDC recommendation for HIV screening. Talya García MD LAB BLOOD ORDERABL ES Final Result Performing Organization Address City/[facility]/ZIP Co de Phone Number [facility] [address] [place] [address], [place] [phone] * Treponema pallidum antibody with reflex to RPR and particle agglutination (01/13/2025 10:50 AM EDT) [facility] T. Pallidum Antibodies Negative Negative LAB CHEMISTRY METHOD 01/13/2025 1:58 PM EDT [facility] Blood Venous blood specimen / Unknown Venipuncture / Unknown 01/13/2025 10:50 AM EDT 01/13/2025 10:50 AM EDT Talya García MD LAB BLOOD ORDERABL ES Final Result [facility] [address] [place] [address], [place] [phone] * (ABNORMAL) Urinalysis with reflex microscopic and culture (12/30/2024 8:23 PM EDT) Specific [place] Urine 1.015 1.003 - 1.030 LAB URINALYSIS - AUTOMATED METHOD 12/30/2024 9:13 PM [facility] pH, Urine 5.5 5.0 - 8.0 pH LAB URINALYSIS - AUTOMATED METHOD 12/30/2024 9:13 PM [facility] Leukocytes, Urine Negative Negative LAB URINALYSIS - AUTOMATED METHOD 12/30/2024 9:13 PM [facility] Nitrite, Urine Negative Negative LAB URINALYSIS - AUTOMATED METHOD 12/30/2024 9:13 PM [facility] Protein, Urine 300(A) <=Trace mg/dL LAB URINALYSIS - AUTOMATED METHOD 12/30/2024 9:13 PM [facility] Glucose, Urine 100(A) Negative mg/dL LAB URINALYSIS - AUTOMATED METHOD 12/30/2024 9:13 PM [facility] Ketones, Urine Negative Negative mg/dL LAB URINALYSIS - AUTOMATED METHOD 12/30/2024 9:13 PM [facility] Urobilinogen, Urine 0.2 0.2 - 1.0 mg/dL LAB URINALYSIS - AUTOMATED METHOD 12/30/2024 9:13 PM [facility] Bilirubin, Urine Negative Negative LAB URINALYSIS - AUTOMATED METHOD 12/30/2024 9:13 PM [facility] Blood, Urine Trace(A) Negative LAB URINALYSIS - AUTOMATED METHOD 12/30/2024 9:13 PM [facility] RBC, Urine 5.7(H) 0 - 4 /HPF LAB URINALYSIS - AUTOMATED METHOD 12/30/2024 9:13 PM [facility] WBC, Urine 4.6(H) 0 - 4 /HPF LAB URINALYSIS - AUTOMATED METHOD 12/30/2024 9:13 PM [facility] Squamous Epithelial, Urine 80(H) 0 - 60 /LPF LAB URINALYSIS - AUTOMATED METHOD 12/30/2024 9:13 PM EDT [facility] Bacteria, Urine Negative Negative /HPF [...] ORDERABLES Final Resul t Performing Organization Address [facility]/ZIP Co de Phone Number [facility] [address] [place] [address], [place] [phone] * Gonzalez urine culture tube (12/30/2024 8:23 PM EDT) Extra Tube Hold for add-ons. 12/30/2024 10:02 PM EDT [facility] Comment:Auto resulted. Urine Urine specimen obtained by clean catch procedure / Unknown Non-blood Collection / Unknown 12/30/2024 8:23 PM EDT 12/30/2024 9:01 PM EDT us Marisol Richard MD LAB URINE ORDERABLES Final Resul t Performing Organization Address [facility]/ZIP Co de Phone Number [facility] [address] [place] [address], [place] [phone] * (ABNORMAL) CBC auto differential (12/30/2024 4:39 PM EDT) Only the most recent of2 resultswithin the time period is included. WBC 6.2 4.8 - 10.8 K/[facility] LAB HEMETOLOGY METHOD 12/30[facility]2024 5[facility] RBC 3.30(L) 4.50 - 5.50 M/mcL LAB HEMETOLOGY METHOD 12/30/2024 5:[facility] Hemoglobin 9.3(L) 13.5 - 17.5 g/dL LAB HEMETOLOGY METHOD 12/30/2024 5:06 PM [facility] Hematocrit 28.8(L) 42.0 - 54.0 % LAB HEMETOLOGY METHOD 12/30/2024 5:06 PM [facility] MCV 88.1 79.0 - 98.0 FL LAB HEMETOLOGY METHOD 12/30/2024 5:06 PM [facility] MCH 28.4 27.0 - 32.0 pcg LAB HEMETOLOGY METHOD 12/30/2024 5:06 PM [facility] MCHC 32.3 32.0 - 37.0 g/dL LAB HEMETOLOGY METHOD 12/30/2024 5:06 PM [facility] RDW 14.6 11.0 - 15.0 % LAB HEMETOLOGY METHOD 12/30/2024 5:06 PM [facility] Platelets 300 130 - 400 K/mcL LAB HEMETOLOGY METHOD 12/30/2024 5:06 PM [facility] MPV 10.2 7.0 - 11.0 FL LAB HEMETOLOGY METHOD 12/30/2024 5:06 PM [facility] NRBC 0.0 <1.0 % LAB HEMETOLOGY METHOD 12/30/2024 5:06 PM [facility] NRBC Absolute 0.00 <0.10 K/mcL LAB HEMETOLOGY METHOD 12/30/2024 5:06 PM [facility] Neutrophils Relative 56.5 % LAB HEMETOLOGY METHOD 12/30/2024 5:06 PM [facility] Lymphocytes Relative 29.3 % LAB HEMETOLOGY METHOD 12/30/2024 5:06 PM EDT [facility] Monocytes Relative 8.4 % LAB [...] K/mcL LAB HEMETOLOGY METHOD 12/30/2024 5:06 PM [facility] Blood Venous blood specimen / Unknown Venipuncture / Unknown 12/30/2024 4:39 PM EDT 12/30/2024 4:56 PM EDT Marisol Richard MD LAB BLOOD ORDERABLES Final Resul t Performing Organization Address City/[facility]/ZIP Co de Phone Number [facility] [address] [place] [address], [place] [phone] * (ABNORMAL) Sedimentation rate, automated (12/30/2024 4:39 PM EDT) Only the most recent of2 resultswithin the time period is included. [facility] Sed Rate 85(H) 0 - 15 mm/hr LAB HEMETOLOGY METHOD 12/30/2024 5:06 PM EDT [facility] Blood Venous blood specimen / Unknown Venipuncture / Unknown 12/30/2024 4:39 PM EDT 12/30/2024 4:56 PM EDT Cee Aranda MD LAB BLOOD ORDERABLES Final Resul t Performing Organization Address [facility]/ZIP Co de Phone Number [facility] [address] [place] [address], [place] [phone] * (ABNORMAL) Comprehensive metabolic panel (12/30/2024 4:39 PM EDT) [facility] Sodium 137 133 - 145 mmol/L LAB CHEMISTRY METHOD 12/30/2024 5:29 PM EDT [facility] Potassium 5.2 3.5 - 5.5 mmol/L LAB CHEMISTRY METHOD 12/30/2024 5:29 PM EDT [facility] Chloride 110 96 - 110 mmol/L LAB CHEMISTRY METHOD 12/30/2024 5:29 PM EDT [facility] CO2 19(L) 21 - 32 mmol/L LAB CHEMISTRY METHOD 12/30/2024 5:29 PM EDT [facility] Anion Gap 8 3 - 11 LAB CHEMISTRY METHOD 12/30/2024 5:29 PM EDT [facility] Glucose 153(H) 70 - 100 mg/dL LAB CHEMISTRY METHOD 12/30/2024 5:29 PM [facility] BUN 68(H) 5 - 25 mg/dL LAB CHEMISTRY METHOD 12/30/2024 5:29 PM [facility] Creatinine 5.19(H) 0.70 - 1.30 mg/dL LAB CHEMISTRY METHOD 12/30/2024 5:29 PM [facility] eGFR 13(L) >=60 mL/min/1. 73m2 LAB CHEMISTRY METHOD 12/30/2024 5:29 PM [facility] Comment:Calculation based on the Chronic Kidney Disease Epidemiology Collaboration (CKD-EPI) equation refit without adjustment for race. BUN/Creatinine Ratio 13.1 LAB CHEMISTRY METHOD 12/30/2024 5:29 PM [facility] Calcium 7.9(L) 8.5 - 10.5 mg/dL LAB CHEMISTRY METHOD 12/30/2024 5:29 PM [facility] AST (SGOT) 26 10 - 42 unit/L LAB CHEMISTRY METHOD 12/30/2024 5:29 PM [facility] ALT (SGPT) 50 10 - 60 unit/L LAB CHEMISTRY METHOD 12/30/2024 5:29 PM [facility] Alkaline Phosphatase 96 42 - 121 unit/L LAB CHEMISTRY METHOD 12/30/2024 5:29 PM [facility] Total Protein 6.5 6.0 - 8.0 g/dL LAB CHEMISTRY METHOD 12/30/2024 5:29 PM [facility] Albumin 3.1(L) 3.2 - 5.0 g/dL LAB CHEMISTRY METHOD 12/30/2024 5:29 PM [facility] Total Bilirubin 0.3 0.0 - 1.4 mg/dL LAB CHEMISTRY METHOD 12/30/2024 5:29 PM [facility] Blood Venous blood specimen / Unknown Venipuncture / Unknown 12/30/2024 4:39 PM EDT 12/30/2024 4:56 PM EDT Marisol Richard MD LAB BLOOD ORDERABLES Final Resul t Performing Organization Address [facility] Co de Phone Number [facility] [address] [place] [address], [place] [phone] * (ABNORMAL) DOUG IFA with titer and pattern (12/09/2024 12:01 PM EDT) DOUG Positive (A) Negative 12/12/2024 2:18 PM [...] mixed connective tissue disease, consider testing for anti-CLINIC NURSE. Titer 1:1280(A ) <1:160 12/12/2024 2:18 PM EDT [facility] Blood Venous blood specimen / Unknown Venipuncture / Unknown 12/09/2024 12:01 PM EDT 12/09/2024 12:01 PM EDT Harinder GRANADO LAB BLOOD ORDERABLES Final Res ult Performing Organization Address [facility]/ZIP Co de Phone Number [facility] [address] [place] [address], [place] [phone] * Borrelia burgdorferi antibody (12/09/2024 12:01 PM EDT) Lyme Ab Negative Negative LAB CHEMISTRY METHOD [...] ORDERABLES Final Res ult Performing Organization Address [facility] Co de Phone Number [facility] [address] [place] [address], [place] [phone] * Rheumatoid factor (12/09/2024 12:01 PM EDT) Pathologist [facility] Rheumatoid Factor <10.0 <15.0 I Unit/mL LAB CHEMISTRY METHOD 12/09/2024 5:50 PM EDT [facility] Blood Venous blood specimen / Unknown Venipuncture / Unknown 12/09/2024 12:01 PM EDT 12/09/2024 12:01 PM EDT Harinder GRANADO LAB BLOOD ORDERABLES Final Res ult Performing Organization Address [facility] de Phone Number [facility] [address] [place] [address], [place] [phone] * Uric acid (12/09/2024 12:01 PM EDT) Pathologist [facility] Uric Acid 6.0 3.7 - 9.2 mg/dL LAB CHEMISTRY METHOD 12/09/2024 5:50 PM EDT [facility] Blood Venous blood specimen / Unknown Venipuncture / Unknown 12/09/2024 12:01 PM EDT 12/09/2024 12:01 PM EDT us Harinder GRANADO LAB BLOOD ORDERABLES Final Res ult Performing Organization Address City/[facility]/ZIP Co de Phone Number [facility] [address] [place] [address], [place] [phone] * (ABNORMAL) Iron and TIBC (11/18/2024 10:00 [...] Resu lt [facility] [address] [place] [address], [place] [phone] * (ABNORMAL) Microalbumin creatinine urine ratio (11/18/2024 [...] ORDERABLES Final Resu lt Performing Organization Address City/[facility]/ZIP Co de Phone Number [facility] [address] [place] [address], [place] [phone] * (ABNORMAL) Vitamin D 25 hydroxy (11/18/2024 10:00 AM EDT) Pathologist [facility] Vit D, 25-Hydroxy 20.6(L) 30.0 - 80.0 ng/mL LAB CHEMISTRY METHOD 11/18/2024 4:34 PM EDT [facility] Blood Venous blood specimen / Unknown Venipuncture / Unknown 11/18/2024 10:00 AM EDT 11/18/2024 11:56 AM EDT us Hugo Green MD LAB BLOOD ORDERABLES Final Resu lt Performing Organization Address [facility] Co de Phone Number [facility] [address] [place] [address], [place] [phone] * (ABNORMAL) Parathyroid hormone intact (11/18/2024 10:00 AM EDT) [facility] PTH 541.1(H) 18.5 - 88.0 pcg/mL LAB CHEMISTRY METHOD 11/18/2024 4:37 PM EDT [facility] Blood Venous blood specimen / Unknown Venipuncture / Unknown 11/18/2024 10:00 AM EDT 11/18/2024 11:56 AM EDT us Hugo Green MD LAB BLOOD ORDERABLES Final Resu lt Performing Organization Address [facility] Co de Phone Number [facility] [address] [place] [address], [place] [phone] * (ABNORMAL) Ferritin (11/18/2024 10:00 AM EDT) Ferritin 14(L) 26 - 388 ng/mL LAB CHEMISTRY METHOD 11/18/2024 4:11 PM [facility] Blood Venous blood specimen / Unknown Venipuncture / Unknown 11/18/2024 10:00 AM EDT 11/18/2024 11:56 AM EDT us Hugo Green MD LAB BLOOD ORDERABLES Final Resu lt [facility] [address] [place] [address], [place] [phone] * (ABNORMAL) Renal function panel (11/18/2024 10:00 AM EDT) [facility] Sodium 136 133 - 145 mmol/L LAB CHEMISTRY METHOD 11/18/2024 4:11 PM [facility] Potassium 5.5 3.5 - 5.5 mmol/L LAB CHEMISTRY METHOD 11/18/2024 4:11 PM [facility] Chloride 110 96 - 110 mmol/L LAB CHEMISTRY METHOD 11/18/2024 4:11 PM [facility] CO2 23 21 - 32 mmol/L LAB CHEMISTRY METHOD 11/18/2024 4:11 PM [facility] Anion Gap 3 3 - 11 LAB CHEMISTRY METHOD 11/18/2024 4:11 PM [facility] Glucose 158(H) 70 - 100 mg/dL LAB CHEMISTRY METHOD 11/18/2024 4:11 PM [facility] BUN 72(H) 5 - 25 mg/dL LAB CHEMISTRY METHOD 11/18/2024 4:11 PM [facility] Creatinine 4.93(H) 0.70 - 1.30 mg/dL LAB CHEMISTRY METHOD 11/18/2024 4:11 PM [facility] eGFR 14(L) >=60 mL/min/1. 73m2 LAB CHEMISTRY METHOD 11/18/2024 4:11 PM EDT [facility] Comment:Calculation based on the Chronic [...] mg/dL LAB CHEMISTRY METHOD 11/18/2024 4:11 PM T [facility] Blood Venous blood specimen / Unknown Venipuncture / Unknown 11/18/2024 10:00 AM EDT 11/18/2024 11:56 AM EDT us Hugo Green MD LAB BLOOD ORDERABLES Final Resu lt [facility] [address] [place] [address], * (ABNORMAL) Lipid panel with reflex to [...] 3:22 PM EDT [facility] VLDL Cholesterol Nasir [...] ORDERABLES Final Res ult Performing Organization Address [facility]/ZIP Co de Phone Number [facility] [address] [place] [address], * Hemoglobin A1c (08/24/2024 11:37 AM EDT) Pathologist [facility] Hemoglobin A1C 6.4 <6.5 % LAB CHEMISTRY METHOD 08/24/2024 8:53 PM EDT [facility] Mean Bld Glu Estim. 137 mg/dL LAB CHEMISTRY METHOD 08/24/2024 8:53 PM EDT [facility] Blood Venous blood specimen / Unknown Venipuncture / Unknown 08/24/2024 11:37 AM EDT 08/24/2024 11:37 AM EDT Harinder GRANADO LAB BLOOD ORDERABLES Final Res ult [facility] [address] [place] [address], [place] [phone] * Hm Diabetes Eye Exam (03/24/2023) Pathologist [facility] Diabetes: Annual Retina Eye Exam Abstracted Historical Provider HEALTH MAINTENANCE Final Result * External Colonoscopy Report (12/25/2021 11:06 AM EDT) Anatomical Region Laterality Modality Endoscopy us Historical Provider GI~PROCEDURE ORDERABLES F inal Result from Last 3 Months or Most Recently Relevant to Health Maintenance Insurance MEDICARE Member Subscriber Plan / Payer (Ef fective 2021-Present) Name:BLYANE QUINONES Relation to Subscriber:Self Name:Blayne Quinones Payer ID:[id number] Group ID:[id number] Type:Not on file Address: [facility] [address] [id number] Advance Directives Documents on File Type Date Recorded 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 Care Teams Farmworker Vegetable Relationship Specialty Start Date End Date Talya García MD [address] [place] [id number] PCP - General Internal Medicine 01/19/24
--- OUTSIDE RECORDS SUMMARY | 2025-02-03 13:50 | XMS_ITS | Encounter Summary ---
Author Organization [facility] Address [address] [place] [address] Care Team Providers Care Diplomatic Interpreter Name Role Phone Talya García MD Primary Care Prov ider Encounter Details Date Type Department Care Team (Late st Contact Info) Description 01/13/2025 Results Follow-Up Adult Medicine - [place] [address] [place] [address] Talya García MD [address] [place] [address] Social History Tobacco Use Types Packs/Day Years [...] 9:30 AM EST Office Visit Adult Medicine [facility] [address] [place] [address] Harinder Lipscomb PA [address] [place] [address] 02/23/2025 8:10 AM EST Consult [facility] Cardiology [facility] [address] [place] [address] Yesi Doshi NP [address] [place] [address] [address] [place] [address] 04/24/2025 1:40 PM EST Office Visit [facility] Cardiology [facility] [address] [place] [address] Harjit Tomas NP [address] [place] [address] [address] [place] [phone] documented as of this encounter Visit Diagnoses Not on filedocumented in this encounter Additional Health Concerns Assessment Noted Time PHQ-9 Depression Total Score: 10 025 4:16 PM EDT documented as of this encounter Care Teams Diplomatic Interpreter Relationship Specialty Start Date End Date Talya García MD [address] [place] [id number] PCP - General Internal Medicine 01/19/24 documented as of this encounter
[2025-02-03 13:57] VITALS: BP 147/77; PULSE 71; RESP 16; O2SAT 98; BMI 31.7
--- NOTE | 2025-02-03 13:57 | MHC.OFFVIS ---
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 The neuropathy began at the beginning of the year, affecting his entire body and described as a burning sensation. 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 The autoimmune disorder is suspected to be causing widespread joint pain and fatigue. The patient reports pain in the joints of the hands, knees, ankles, and wrists, along with a feeling of heaviness in the head and lethargy. Rheumatology is involved in the workup, with ongoing tests to determine the specific autoimmune condition. The patient has a history of kidney failure, currently being evaluated for dialysis, with cardiac assessments pending. The etiology of the kidney failure is unclear, with possibilities including diabetes or an autoimmune process. The patient has a history of hypertension and has had two heart stents placed last year. The patient denies any history of COVID-19 infection but has received two vaccinations. Patient reports all over joint pain and burning sensation related to neuropathy. He denies specific area for targeted treatment and is currently being worked up by rheumatology. - Onset: Beginning of the year - Quality: Burning, numbness, tingling - Primary Location: All over - Exacerbating Factors: More pronounced at night - Relieving Factors: Discontinuation of gabapentin improved mobility - Affect: Pain impacts mood and causes fatigue - Analgesia: Previously on gabapentin, discontinued due to fluid retention - Adverse Effects: Fluid retention from gabapentin - Activities of Daily Living: Pain and fatigue affect daily activities - Aberrant Drug Related Behaviors: None reported [facility] Family History Mother Cataract Glaucoma Dementia Father Colon cancer Heart disease Brother Heart disease Colon cancer Social History (Updated 01/25/25 @ 09:59 by BOUBACAR Gomez) Household Members: None Housing: Apartment Alcohol intake: former Patient Tobacco Use Status: Former Tobacco user Tobacco use type: Cigarette Cigarette Packs Per Day: 0.5 Years Smoked: 20 Review of Systems Narrative - Neurological: Reports burning, numbness, and tingling in feet, radiating pain, heaviness in head, and fatigue - Musculoskeletal: Reports joint pain in hands, knees, ankles, and wrists - Cardiovascular: Reports history of hypertension and heart stents - Renal: Reports kidney failure Physical Exam Exam Exam: General: awake, alert, oriented. Answers questions appropriately. Fully engaged in examination. Skin: warm, dry, intact HEENT: Normocephalic. Hearing intact. Cardiac: External chest normal in appearance. Respiratory: No cough, audible wheezing or stridor. Abdomen: without gross distension. MS: No obvious swelling or deformities. Neurological: Oriented to person, place, time and situation. Thought process intact. No gait abnormalities appreciated. Psychiatric: Appropriate mood and affect. Good judgment and insight. Vital Signs: Last Vital Signs Pulse 71 02/03/25 13:57 Resp 16 02/03/25 13:57 BP 147/77 H 02/03/25 13:57 Pulse Ox 98 02/03/25 13:57 Oxygen Delivery Method Room Air 02/03/25 13:57 BMI result Body Mass Index 31.7 Assessment & Plan Assessment & Plan (1) Polyarthralgia: Code(s): M25.50 - Pain in unspecified joint Category: Medical (2) Joint pain: Code(s): M25.50 - Pain in unspecified joint Category: Medical (3) Neuropathy: Code(s): G62.9 - Polyneuropathy, unspecified Category: Medical Plan The patient is currently undergoing evaluation for an autoimmune disorder, with rheumatology conducting tests to determine the specific condition. The management of diabetic neuropathy is complicated by previous adverse effects from gabapentin, and alternative treatments are being considered. The patient's kidney failure is being monitored, with plans for dialysis pending cardiac evaluations. The etiology of the kidney failure remains uncertain, with diabetes and autoimmune processes being considered. The patient is advised to follow up with rheumatology for further evaluation and management of joint pain and autoimmune symptoms. The patient is also encouraged to complete pending diagnostic tests, including hand x-rays, to aid in the diagnosis. He was advised that we provide targeted interventional management. We discussed Qutenza for peripheral neuropathy of the feet but patient reports that is not a primary source of pain for him at this time. He is hoping Rheumatology testing will be able to provide a definitive diagnosis and treatment plan. Patient was informed and verbally consented to the use of an ambient scribe for clinic note documentation during this visit. Patient Instructions: - Follow up with rheumatology for further evaluation and management of joint pain and autoimmune symptoms. - Complete pending diagnostic tests, including hand x-rays, to aid in diagnosis. - Monitor symptoms and report any significant changes to your healthcare provider. Coding Level of Care Code New Pt Level 4 (85445) Complex visit Add On G2211 Diagnoses Polyarthralgia M25.50 Joint pain M25.50 Neuropathy G62.9
== END 2025-02-03 14:41 | disposition home or self-care (01) ==
PROVIDERS: PCP Internal Medicine; Referring Provider Internal Medicine; Visit Provider Registered Nurse Emergency
DX: M25.50 Pain in unspecified joint (principal); G62.9 Polyneuropathy, unspecified
CPT/HCPCS: 99204; G2211

== ENCOUNTER 2025-02-03 13:32 | Outpatient (REF) | payer OTHER, SELFPAY ==
--- NOTE | ~2025-02-03 | XR_ITS ---
EXAMINATION: X-ray bilateral hands CLINICAL INFORMATION: Pain, unspecified COMPARISON: None TECHNIQUE: X-ray bilateral hands 4 views FINDINGS: Left hand: No fracture or dislocation. No significant joint space narrowing or marginal osteophytes. No osseous erosion. No suspicious bony lesion No abnormal soft tissue calcification. Right hand: No fracture or dislocation. No significant joint space narrowing or marginal osteophytes. No osseous erosion. No suspicious bony lesion No abnormal soft tissue calcification. XR/XR Hand Bilat min 3v IMPRESSION: No radiographic evidence of significant arthropathy. Electronically signed by: Cortez Powell MD 02/03/2025 05:08 PM [facility]
== END 2025-02-03 13:33 | disposition home or self-care (01) ==
LOC: HO.XRAY 13:32
PROVIDERS: PCP Internal Medicine; Referring Provider Internal Medicine; Visit Provider Student in an Organized Health Care Education/Training Program
DX: M25.50 Pain in unspecified joint (principal); G62.9 Polyneuropathy, unspecified
CPT/HCPCS: 73130; 99202

== ENCOUNTER → 2025-02-03 14:52 | Outpatient (BNV) | payer OTHER, SELFPAY | PROVIDERS: PCP Internal Medicine; Referring Provider Internal Medicine; Visit Provider Radiology Diagnostic Ultrasound | DX: M79.641 Pain in right hand (principal); M79.642 Pain in left hand | CPT/HCPCS: 73130 ==

== ENCOUNTER 2025-02-15 10:10 | Outpatient (AMB) | payer OTHER, SELFPAY ==
[2025-02-15 10:12] VITALS: BP 128/68; PULSE 72; O2SAT 99; BMI 29.7
--- NOTE | 2025-02-15 10:12 | A.OFFVIS_ITS ---
Vital Signs 02/15/25 10:12 Height 6 ft 2 in Weight 231 lb 4.238 oz BMI 29.7 BP 128/68 Blood Pressure Location Lt brachial Position Standing Pulse 72 Pulse Source Pulse Oximeter Pulse Oximetry (%) 99 Oxygen Delivery Method Room Air Intake Visit Reasons: 3 week f/u Intake Note: Patient presents for follow up on labs and x-rays for polyarthralgia. Patient states he is still in pain. 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 The joint pain is located in the hands, in the MCPS and PIPS bilaterally, wrists, elbows, shoulders hips and knees. There is diffuse swelling in the hands. There is morning stiffness in all joints atleast one hour Patient is extremely fatigued, very dry eyes and dry mouth All these symptoms have started in the past year no photosensitivity,no oral ulcers, no skin rashes but dry skin all over, no pleuritic chest pain. no blood clots, no bloody diarrhea recently no known family history of autoimmune disease On blood work patient had a negative rheumatoid factor uric acid normal 6.0 , patient had a DOUG repeat 1:320 speckled pattern, DOUG subsets negative, CCP negative. 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 Good respiratory effort Skin: No lesions seen MSK: Normal range of motion upper extremities, limited range of motion in the hips. Tenderness in the PIPs and MCPs bilaterally. Patient has difficulty making a closed fist bilaterally, swelling of the hands are noted but there is no active synovitis. [facility] Surgical History (Updated 02/15/25 @ 10:19 by Janeth Redding [facility]) H/O rotator cuff surgery Hx of appendectomy History of weight loss surgery Family History Mother Cataract Glaucoma Dementia Father Colon cancer Heart disease Brother Heart disease Colon cancer Social History Household Members: None Housing: Apartment Alcohol intake: former Patient Tobacco Use Status: Former Tobacco user Tobacco use type: Cigarette Cigarette Packs Per Day: 0.5 Years Smoked: 20 Physical Exam Vital Signs: Last Vital Signs Pulse 72 02/15/25 10:12 BP 128/68 02/15/25 10:12 Pulse Ox 99 02/15/25 10:12 Oxygen Delivery Method Room Air 02/15/25 10:12 BMI result Body Mass Index 29.7 Assessment & Plan Assessment & Plan (1) Polyarthralgia: Code(s): M25.50 - Pain in unspecified joint Category: Medical (2) Positive DOUG (antinuclear antibody): Code(s): R76.8 - Other specified abnormal immunological findings in serum Category: Medical (3) Joint pain: Code(s): M25.50 - Pain in unspecified joint Category: Medical (4) ESRD (end stage renal disease): Code(s): N18.6 - End stage renal disease Category: Medical Plan: Based on the patient's history, physical exam and results of blood work, very low suspicion that he has an underlying autoimmune rheumatic disease. He has a positive DOUG in isolation, he does not have any clinical features suggestive of SLE, scleroderma, psoriatic arthritis, rheumatoid arthritis or other autoimmune inflammatory arthritis. His joint pain most likely may be contributed to the inflammatory state related to his ESRD. He also has a mildly elevated TSH, we will place endocrinology referral to evaluate for hypothyroidism which can cause joint pain. Once he starts the peritoneal dialysis, the hope is that his joint pain improves. I will follow up with him in 6 months to reassess his joint pain Plan Based on the patient's history, physical exam and results of blood work, very low suspicion that he has an underlying autoimmune rheumatic disease. He has a positive DOUG in isolation, he does not have any clinical features suggestive of SLE, scleroderma, psoriatic arthritis, rheumatoid arthritis or other autoimmune inflammatory arthritis. His joint pain most likely may be contributed to the inflammatory state related to his ESRD. He also has a mildly elevated TSH, we will place endocrinology referral to evaluate for hypothyroidism which can cause joint pain. Once he starts the peritoneal dialysis, the hope is that his joint pain improves. I will follow up with him in 6 months to reassess his joint pain Orders: Referrals Endocrinology Referral M25.50 - Pain in unspecified joint Coding Level of Care Code Est Pt Level 3 (46754) Diagnoses Polyarthralgia M25.50 Positive DOUG (antinuclear antibody) R76.8 Joint pain M25.50 ESRD (end stage renal disease) N18.6
--- OUTSIDE RECORDS SUMMARY | 2025-02-15 11:36 | XMS_ITS | Clinical Summary ---
Author Organization [facility] Blockboard Address [address] [place] [address] Phone Care Team Providers Care Sawyer Cork Slabs Name Role Phone Talya García MD Primary [...] tabletIndications: Primary hypertension,Coron cezar artery disease involving dry creek coronary artery of dry creek heart with angina pectoris (CMS/HCC V24) Take 1 tablet (25 mg total) by mouth 3 (three) times a day. 270 each 3 5 026 Active losartan (COZAAR) 100 mg tabletIndications: Coronary artery disease with angina pectoris, unspecified vessel or lesion type, unspecified whether dry creek or transplanted heart (CMS/HCC V24),Dyspnea, unspecified type,Hyperlipidemi [...] DAILY 45 mL 1 5 Active cloNIDine ([id number]) 0.2 mg/[address] 1 patch on [...] diabetes mellitus with other diabetic neurological complication ([facility] V24, CMS/[facility] V28) INJECT 15 UNITS AT NIGHT, INCREASE [...] 14 each 5 025 Discontin ued(Reord er) pregabalin (LYRICA) [...] 06/03/2023 Non-STEMI (non-ST elevated m yocardial infarction) ([facility] V24, [facility] V28) 06/03/2023 Overview (12/14/2023): Bifurcation. 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 Dr. Fontaine. 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 Dr. Fontaine. Diabetes mellitus with perip heral vascular disease ([facility] V24, [facility] V28) 05/25/2018 Marijuana use 10/23/2015 Microalbuminuria 10/10/2015 Type II or unspecified type diabetes mellitus with renal manifestations, uncontrolled(250.42) ([facility] V24, [facility] V28) 10/10/2015 Overview (12/14/2023): Type II diabetes [...] diabetes mellitus wit h neurological manifestations, controlled (CMS/[facility] V24, CMS/[facility] V28) 05/25/2014 Overview (12/14/2023): Type II or unspecified type diabetes mellitus with neurological manifestations, not stated as uncontrolled Encounters Date Type Department Care Team Description 02/08/2025 9:30 AM EST Office Visit Adult [address] [phone] Harinder Lipscomb PA Positive DOUG (antinuclear antibody) (Primary Dx); Renal failure, unspecified chronicity; Type II or unspecified type diabetes mellitus with renal manifestations, uncontrolled(250.42) (CMS/[facility] V24, CMS/[facility] V28); Generalized muscle weakness; Skin lesion 01/25/2025 Telephone Nephrology - [address] [phone] Hugo Green MD 01/24/2025 10:00 AM EST Office Visit [address] [phone] Talya Adames MD Generalized muscle weakness (Primary Dx); 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, with long-term current use of insulin, macular edema presence unspecified, unspecified laterality, unspecified prol* (CMS/HCC V24, CMS/HCC V28); Insomnia due to medical condition; Pedal edema; Renal failure, unspecified chronicity 01/24/[address] [phone] [place] 01/20/[address] [phone] Talya Adames MD 01/13/2025 10:50 AM EDT Lab Draw Station [address] Benign prostatic hyperplasia with urinary frequency; Screen for STD (sexually transmitted disease) 01/13/2025 10:00 AM EDT Office Visit [address] [phone] Talya Adames MD Type 2 diabetes mellitus with neurological manifestations, controlled (CMS/[facility] V24, [facility] V28) (Primary Dx); Diabetic polyneuropathy associated with type 2 diabetes mellitus (CMS/[facility] V24, CMS/[facility] V28); Drug allergy; Positive DOUG (antinuclear antibody); STD (male); Benign prostatic hyperplasia with urinary frequency; Screen for STD (sexually transmitted disease) 01/13/2025 Results Follow-Up [address] [phone] Talya Adames MD 01/10/[address] [phone] Talya Adames MD 01/10/[address] [phone] Talya Adames MD 01/10/2025 Telephone [facility] - [place] [address] [place] [phone] Talya Adames MD 01/10/2025 Telephone Adult Medicine - [place] [address] [place] [phone] Talya Adames MD 01/06/2025 Telephone [facility] [address] [place] [phone] Provider, Not In System 01/06/2025 Telephone [facility] [address] [place] [phone] Provider, Not In System 01/03/2025 Telephone Adult Medicine - [place] [address] [place] [address] Talya Adames MD 12/30/2024 3:27 PM EDT - 12/30/2024 10:49 PM EDT Emergency [facility] Emergency [address] [place] [phone] Marisol Richard MD Goebel, Mathew, MD Other fatigue (Primary Dx); Body aches; Chronic bilateral back pain, unspecified back location Discharge Disposition: Home or Self Care 12/30/2024 Telephone Adult Medicine - [place] [address] [place] [address] Talya Adames MD 12/20/2024 Telephone [facility] [address] [place] [phone] Provider, Not In System 12/12/2024 Results Follow-Up Adult Medicine - [place] [address] [place] [phone] Harinder Lipscomb PA 12/09/2024 11:15 AM EDT Office Visit Adult Medicine - [place] [address] [place] [phone] Harinder Lipscomb PA 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, with long-term current use of insulin, macular edema presence unspecified, unspecified laterality, unspecified prol* ([facility] V24, [facility] V28) (Primary Dx); Type 2 diabetes mellitus with neurological manifestations, controlled ([facility] V24, [facility] V28); Coronary artery disease without angina pectoris, unspecified vessel or lesion type, unspecified whether dry creek or transplanted heart; Complaints of total body pain; Elevated serum creatinine; ESRD (end stage renal disease) ([facility] V24, [facility] V28) 11/21/2024 Telephone [facility] [address] [place] [phone] Talya Adames MD 11/17/2024 Telephone [facility] [address] [place] [address] Leif An from Last 3 Months Immunizations Immunization Administration Dates Next Due HepB-CpG (Heplisav-B) 18yo and older 01/17/2025 Pfizer SARS-CoV-2 COVID-19, mRNA, LNP-S, preservative free 10/18/2020 Surgical History Surgery Date Site/Laterality Comments EYE SURGERY 06/07/2024 Right Medical History Medical History Date Comments Snoring 08/04/2023 CAD (coronary artery disease) 07/30/2023 Chest pain 06/03/2023 History of cardiac catheterization 06/03/2023 Done on 04/29/23 at [facility] with KM indications: NSTEMI Non-STEMI (non-ST elevated m yocardial infarction) ([facility] V24, [facility] V28) 06/03/2023 Bifurcation. ZAKIA stentin the LAD and diagonal echocardiogram shows normal left ventricular ejection fraction Elevated serum creatinine 10/30/2022 Dyspnea 06/02/2022 Family history of colon canc er in father 08/29/2021 Stage 3a chronic kidney dise ase (CKD) ([facility] V24, [facility] V28) 08/29/2021 Vitamin D deficiency 08/14/2021 Non-compliance with treatment 11/26/2018 [facility] rachel does not believe in medicationspoison will not take any medicine that is not a cure Type 2 diabetes mellitus wit h proliferative retinopathy ([facility] V24, [facility] V28) 11/23/[address] Fontaine Marijuana use 10/23/2015 Microalbuminuria 10/10/2015 Lumbar radicular pain 08/29/2015 Hyperlipidemia 05/25/2014 Primary hypertension 05/25/2014 Type II or unspecified type diabetes mellitus with neurological manifestations, not stated as uncontrolled(250.60) ([facility] V24, [facility] V28) 05/25/2014 Family History Medical History Relation [...] for your loved ones. For example, child neurologist or elderly care for an older adult? [...] Sign Reading Time Taken Comments Blood Pressure 110/69 02/08/2025 9:21 AM EST Pulse 70 02/08/2025 9:21 AM EST Temperature 36.4 C (97.5 F) 02/08/2025 9:21 AM EST Respiratory Rate 16 02/08/2025 9:21 AM EST Oxygen Saturation 98% 12/30/2024 6:48 PM EDT Inhaled Oxygen Concentration - - Weight 107 kg (235 lb) 02/08/2025 9:21 AM EST Height 182 cm (5' 11.65 ) 02/08/2025 9:21 AM EST Body Mass Index 32.18 02/08/2025 9:21 AM EST Plan of Treatment Upcoming Encounters Date Type Department Care Team (Late st Contact Info) Description 02/23/2025 8:10 AM EST Consult [facility] [address] [place] [phone] Yesi Doshi NP [address] [place] [address] [address] [place] [phone] 04/24/2025 1:40 PM EST Office Visit [facility] [address] [place] [address] Harjit Tomas NP [address] [place] [address] [address] [place] [phone] Health Maintenance Due Date Last Done [...] Procedure Name Priority Date/Time Associated Diagnosis Comments EXTERNAL CLINICAL LAB 01/30/2025 EXTERNAL CLINICAL LAB 01/25/2025 EXTERNAL CLINICAL LAB 01/25/2025 EXTERNAL CLINICAL LAB 01/25/2025 CHLAMYDIA TRACHOMATIS AND NEISSERIA GONORRHOEAE PCR Routine [...] disease, stage V (CMS/HCC V24, CMS/HCC V28) VITAMIN D 25 HYDROXY Routine 11/18/2024 10:00 AM EDT Anemia, unspecified Chronic kidney disease, stage V (CMS/HCC V24, CMS/HCC V28) HEMOGLOBIN A1C Routine 08/24/2024 11:37 AM EDT Type 2 diabetes mellitus with neurological manifestations, controlled (CMS/HCC V24, CMS/HCC V28) LIPID PANEL WITH REFLEX TO DIRECT LDL Routine 08/24/2024 11:37 AM EDT Type 2 diabetes mellitus with neurological manifestations, controlled (CMS/HCC V24, CMS/HCC V28) DIABETES EYE EXAM Routine 03/24/2023 EXTERNAL COLONOSCOPY REPORT Routine 12/25/2021 11:06 AM EDT from Last 3 Months or Most Recently Relevant to Health Maintenance Results * External clinical lab (01/30/2025) Only the most recent of4 resultswithin the time period is included. us Provider [facility] LAB BLOOD ORDERABLES Fin al Result * Chlamydia trachomatis and Neisseria gonorrhoeae molecular study (01/13/2025 11:11 AM EDT) Neisseria gonorrhoeae PCR Negative Negative LAB MOLECULAR DIAGNOSTICS METHOD 01/13/2025 4:06 PM EDT [facility] Chlamydia trachomatis PCR Negative Negative LAB MOLECULAR DIAGNOSTICS METHOD 01/13/2025 4:06 PM EDT [facility] Urine First stream urine specimen / Unknown Non-blood Collection / Unknown 01/13/2025 11:11 AM EDT 01/13/2025 11:11 AM EDT Talya García MD LAB MICROBIOLOGY - GENERAL ORDERABLES Final Result Performing Organization Address [facility]/ZIP Co de Phone Number [facility] [address] [place] [address], * Prostate specific antigen screen (01/13/2025 10:50 AM EDT) PSA 0.41 0.00 - 4.00 ng/mL LAB CHEMISTRY METHOD 01/13/2025 12:51 PM EDT [facility] Blood Venous blood specimen / Unknown Venipuncture / Unknown 01/13/2025 10:50 AM EDT 01/13/2025 10:50 AM EDT Narrative [facility] - 01/13/2025 12:51 PM EDT The Siemens Advia Centaur Chemiluminescent Immunoassay is used. Results obtained with different assay methods or kits cannot be used interchangeably. Results cannot be interpreted as absolute evidence of the presence or absence of malignant disease. Talya García MD LAB BLOOD ORDERABL ES Final Result Performing Organization Address City/[facility] Co de Phone Number [facility] [address] [place] [address], * Hepatitis C antibody (01/13/2025 10:50 AM EDT) Hepatitis C Antibody Negative Negative LAB CHEMISTRY METHOD 01/13/2025 1:31 PM EDT [facility] Blood Venous blood specimen / Unknown Venipuncture / Unknown 01/13/2025 10:50 AM EDT 01/13/2025 10:50 AM EDT Talya García MD LAB BLOOD ORDERABL ES Final Result [facility] [address] [place] [address], [place] [phone] * HIV 1,2 antibody, p24 antigen with reflex to differentiation (01/13/2025 10:50 AM EDT) HIV Combo AB/AG Negative Negative LAB CHEMISTRY METHOD 01/13/2025 1:31 PM EDT [facility] Blood Venous blood specimen / Unknown Venipuncture / Unknown 01/13/2025 10:50 AM EDT 01/13/2025 10:50 AM EDT Narrative [facility] - 01/13/2025 1:31 PM EDT This [...] ORDERABL ES Final Result Performing Organization Address [facility] Co de Phone Number [facility] [address] [place] [address], [place] [phone] * Treponema pallidum antibody with reflex to RPR and particle agglutination (01/13/2025 10:50 AM EDT) T. Pallidum Antibodies Negative Negative LAB CHEMISTRY METHOD 01/13/2025 1:58 PM EDT [facility] Blood Venous blood specimen / Unknown Venipuncture / Unknown 01/13/2025 10:50 AM EDT 01/13/2025 10:50 AM EDT Talya García MD LAB BLOOD ORDERABL ES Final Result [facility] [address] [place] [address], [place] [phone] * (ABNORMAL) Urinalysis with reflex microscopic and culture (12/30/2024 8:23 PM EDT) Specific [place] Urine 1.015 1.003 - 1.030 LAB URINALYSIS - AUTOMATED METHOD 12/30/2024 9:13 PM [facility] pH, Urine 5.5 5.0 - 8.0 pH LAB URINALYSIS - AUTOMATED METHOD 12/30/2024 9:13 PM [facility] Leukocytes, Urine Negative Negative LAB URINALYSIS - AUTOMATED METHOD 12/30/2024 9:13 PM [facility] Nitrite, Urine Negative Negative LAB URINALYSIS - AUTOMATED METHOD 12/30/2024 9:13 PM [facility] Protein, Urine 300(A) <=Trace mg/dL LAB URINALYSIS - AUTOMATED METHOD 12/30/2024 9:13 PM [facility] Glucose, Urine 100(A) Negative mg/dL LAB URINALYSIS - AUTOMATED METHOD 12/30/2024 9:13 PM [facility] Ketones, Urine Negative Negative mg/dL LAB URINALYSIS - AUTOMATED METHOD 12/30/2024 9:13 PM [facility] Urobilinogen, Urine 0.2 0.2 - 1.0 mg/dL LAB URINALYSIS - AUTOMATED METHOD 12/30/2024 9:13 PM [facility] Bilirubin, Urine Negative Negative LAB URINALYSIS - AUTOMATED METHOD 12/30/2024 9:13 PM [facility] Blood, Urine Trace(A) Negative LAB URINALYSIS - AUTOMATED METHOD 12/30/2024 9:13 PM [facility] RBC, Urine 5.7(H) 0 - 4 /HPF LAB URINALYSIS - AUTOMATED METHOD 12/30/2024 9:13 PM EDT [facility] WBC, Urine 4.6(H) 0 - 4 /HPF LAB URINALYSIS - AUTOMATED METHOD 12/30/2024 9:13 PM EDT [facility] Squamous Epithelial, Urine 80(H) 0 - 60 /LPF LAB URINALYSIS - AUTOMATED METHOD 12/30/2024 9:13 PM EDT [facility] Bacteria, Urine Negative Negative /HPF LAB URINALYSIS - AUTOMATED METHOD 12/30/2024 9:13 PM EDT [facility] Hyaline Casts, Urine 2.4 0 - 3 /LPF LAB URINALYSIS - AUTOMATED METHOD 12/30/2024 9:13 PM EDT [facility] Urine Urine specimen obtained by clean catch procedure / Unknown Non-blood Collection / Unknown 12/30/2024 8:23 PM EDT 12/30/2024 9:01 PM EDT us Marisol Richard MD LAB URINE ORDERABLES Final Resul t Performing Organization Address City/[facility]/ZIP Co de Phone Number [facility] [address] [place] [address], [place] [phone] * Gonzalez urine culture tube (12/30/2024 8:23 PM EDT) Extra Tube Hold for add-ons. 12/30/2024 10:02 PM EDT [facility] Comment:Auto resulted. Urine Urine specimen obtained by clean catch procedure / Unknown Non-blood Collection / Unknown 12/30/2024 8:23 PM EDT 12/30/2024 9:01 PM EDT us Marisol Richard MD LAB URINE ORDERABLES Final Resul t Performing Organization Address [facility]/ZIP Co de Phone Number [facility] [address] [place] [address], [place] [phone] * (ABNORMAL) CBC auto differential (12/30/2024 4:39 PM EDT) Only the most recent of2 resultswithin the time period is included. [facility] WBC 6.2 4.8 - 10.8 K/mcL LAB HEMETOLOGY METHOD 12/30/2024 5:06 PM EDT [facility] RBC 3.30(L) 4.50 - 5.50 M/mcL LAB HEMETOLOGY METHOD 12/30/2024 5:06 PM EDT [facility] Hemoglobin 9.3(L) 13.5 - 17.5 g/dL LAB HEMETOLOGY METHOD 12/30[facility]2024 [facility] Hematocrit 28.8(L) 42.0 - 54.0 % LAB HEMETOLOGY METHOD 12/30/2024 5:[facility] MCV 88.1 79.0 - 98.0 FL LAB HEMETOLOGY METHOD 12/30/2024 5:06 [facility] MCH 28.4 27.0 - 32.0 pcg LAB HEMETOLOGY METHOD 12/30/2024 5:06 [facility] MCHC 32.3 32.0 - 37.0 g/dL LAB HEMETOLOGY METHOD 12/30/2024 5:[facility] RDW 14.6 11.0 - 15.0 % LAB HEMETOLOGY METHOD 12/30/2024 5:06 [facility] Platelets 300 130 - 400 K/mcL LAB HEMETOLOGY METHOD 12/30/2024 5:06 [facility] MPV 10.2 7.0 - 11.0 FL LAB HEMETOLOGY METHOD 12/30/2024 5:06 [facility] NRBC 0.0 <1.0 % LAB HEMETOLOGY METHOD 12/30/2024 5:06 PM EDT [facility] NRBC Absolute 0.00 <0.10 K/mcL LAB HEMETOLOGY METHOD 12/30/2024 5:[facility] Neutrophils Relative 56.5 % LAB HEMETOLOGY METHOD 12/30/2024 5:06 PM [facility] Lymphocytes Relative 29.3 % LAB HEMETOLOGY METHOD 12/30/2024 5:06 PM [facility] Monocytes Relative 8.4 % LAB HEMETOLOGY METHOD 12/30/2024 5:06 PM [facility] Eosinophils Relative 4.8 % LAB HEMETOLOGY METHOD 12/30/2024 5:06 PM [facility] Basophils Relative 0.8 % LAB HEMETOLOGY METHOD 12/30/2024 5:06 PM [facility] Immature Granulocytes Relative 0.2 % LAB HEMETOLOGY METHOD 12/30/2024 5:06 PM [facility] Neutrophils Absolute 3.52 1.50 - 7.00 K/mcL LAB HEMETOLOGY METHOD 12/30/2024 5:06 PM [facility] Lymphocytes Absolute 1.82 1.00 - 5.00 K/mcL LAB HEMETOLOGY METHOD 12/30/2024 5:06 PM [facility] Monocytes Absolute 0.52 0.20 - 1.00 K/mcL LAB HEMETOLOGY METHOD 12/30/2024 5:06 PM [facility] Eosinophils Absolute 0.30 0.00 - 0.50 K/mcL LAB HEMETOLOGY METHOD 12/30/2024 5:06 PM [facility] Basophils Absolute 0.05 0.00 - 0.20 K/mcL LAB HEMETOLOGY METHOD 12/30/2024 5:06 PM [facility] Immature Granulocytes Absolute 0.01 0.00 - 0.03 K/mcL LAB HEMETOLOGY METHOD 12/30/2024 5:06 PM EDT [facility] Blood Venous blood specimen / Unknown Venipuncture / Unknown 12/30/2024 4:39 PM EDT 12/30/2024 4:56 PM EDT Marisol Richard MD LAB BLOOD ORDERABLES Final Resul t Performing Organization Address [facility]/ZIP Co de Phone Number [facility] [address] [place] [address], [place] [phone] * (ABNORMAL) Sedimentation rate, automated (12/30/2024 4:39 PM EDT) Only the most recent of2 resultswithin the time period is included. Sed Rate 85(H) 0 - 15 mm/hr LAB HEMETOLOGY METHOD 12/30/2024 5:06 PM EDT [facility] Blood Venous blood specimen / Unknown Venipuncture / Unknown 12/30/2024 4:39 PM EDT 12/30/2024 4:56 PM EDT Cee Aranda MD LAB BLOOD ORDERABLES Final Resul t Performing Organization Address [facility] de Phone Number [facility] [address] [place] [address], [place] [phone] * (ABNORMAL) Comprehensive metabolic panel (12/30/2024 4:39 PM EDT) Sodium 137 133 - 145 mmol/L LAB CHEMISTRY METHOD 12/30/2024 5:29 PM EDT [facility] Potassium 5.2 3.5 - 5.5 mmol/L LAB CHEMISTRY METHOD 12/30/2024 5:29 PM EDT [facility] Chloride 110 96 - 110 mmol/L LAB CHEMISTRY METHOD 12/30/2024 5:29 PM EDT [facility] CO2 19(L) 21 - 32 mmol/L LAB CHEMISTRY METHOD 12/30/2024 5:29 PM [facility] Anion Gap 8 3 - 11 LAB CHEMISTRY METHOD 12/30/2024 5:29 PM [facility] Glucose 153(H) 70 - 100 mg/dL LAB CHEMISTRY METHOD 12/30/2024 5:29 PM [facility] BUN 68(H) 5 - 25 mg/dL LAB CHEMISTRY METHOD 12/30/2024 5:29 PM [facility] Creatinine 5.19(H) 0.70 - 1.30 mg/dL LAB CHEMISTRY METHOD 12/30/2024 5:29 PM [facility] eGFR 13(L) >=60 mL/min/1. 73m2 LAB CHEMISTRY METHOD 12/30/2024 5:29 PM [facility] Comment:Calculation based on the Chronic Kidney Disease Epidemiology Collaboration (CKD-EPI) equation refit without adjustment for race. BUN/Creatinine Ratio 13.1 LAB CHEMISTRY METHOD 12/30/2024 5:29 PM [facility] Calcium 7.9(L) 8.5 - 10.5 mg/dL LAB CHEMISTRY METHOD 12/30/2024 5:29 PM [facility] AST (SGOT) 26 10 - 42 unit/L LAB CHEMISTRY METHOD 12/30/2024 5:29 PM [facility] ALT (SGPT) 50 10 - 60 unit/L LAB CHEMISTRY METHOD 12/30/2024 5:29 PM [facility] Alkaline Phosphatase 96 42 - 121 unit/L LAB CHEMISTRY METHOD 12/30/2024 5:29 PM [facility] Total Protein 6.5 6.0 - 8.0 g/dL LAB CHEMISTRY METHOD 12/30/2024 5:29 PM [facility] Albumin 3.1(L) 3.2 - 5.0 g/dL LAB CHEMISTRY METHOD 12/30/2024 5:29 PM EDT [facility] Total Bilirubin 0.3 0.0 - 1.4 mg/dL LAB CHEMISTRY METHOD 12/30/2024 5:29 PM EDT [facility] Blood Venous blood specimen / Unknown Venipuncture / Unknown 12/30/2024 4:39 PM EDT 12/30/2024 4:56 PM EDT Marisol Richard MD LAB BLOOD ORDERABLES Final Resul t Performing Organization Address [facility]/ZIP Co de Phone Number [facility] [address] [place] [address], [place] [phone] * (ABNORMAL) DOUG IFA with titer and pattern (12/09/2024 12:01 PM EDT) DOUG Positive (A) Negative 12/12/2024 2:18 PM EDT [facility] Comment:DOUG performed by ind irect immunofluorescence (IFA) using HEp-2 substrate. DOUG Pattern Speckled (A) (none) 12/12/2024 2:18 PM EDT [facility] Comment: May be associated with SLE, Sjogren's syndrome, and mixed connective tissue disorder (MCTD). If clinical suspicion of Sjogren's syndrome consider testing for anti-Ro/SSA and anti-La/SSB. If clinical suspicion of mixed connective tissue disease, consider testing for anti-NURSE PARALEGAL. Titer 1:1280(A ) <1:160 12/12/2024 2:18 PM EDT [facility] Blood Venous blood specimen / Unknown Venipuncture / Unknown 12/09/2024 12:01 PM EDT 12/09/2024 12:01 PM EDT Harinder GRANADO LAB BLOOD ORDERABLES Final Res ult [facility] [address] [place] [address], [place] [phone] * Borrelia burgdorferi antibody (12/09/2024 12:01 PM EDT) [facility] Lyme Ab Negative Negative LAB CHEMISTRY METHOD 12/10/2024 11:15 AM EDT [facility] Comment: No laboratory evidence of infection [...] GRANADO LAB BLOOD ORDERABLES Final Res ult [facility] [address] [place] [address], * Rheumatoid factor (12/09/2024 12:01 PM EDT) [facility] Rheumatoid Factor <10.0 <15.0 I Unit/mL LAB CHEMISTRY METHOD 12/09/2024 5:50 PM EDT [facility] Blood Venous blood specimen / Unknown Venipuncture / Unknown 12/09/2024 12:01 PM EDT 12/09/2024 12:01 PM EDT Harinder GRANADO LAB BLOOD ORDERABLES Final Res ult [facility] [address] [place] [address], * Uric acid (12/09/2024 12:01 PM EDT) [facility] Uric Acid 6.0 3.7 - 9.2 mg/dL LAB CHEMISTRY METHOD 12/09/2024 5:50 PM EDT [facility] Blood Venous blood specimen / Unknown Venipuncture / Unknown 12/09/2024 12:01 PM EDT 12/09/2024 12:01 PM EDT Harinder GRANADO LAB BLOOD ORDERABLES Final Res ult Performing Organization Address [facility] Co de Phone Number [facility] [address] [place] [address], [place] [phone] * (ABNORMAL) Iron and TIBC (11/18/2024 10:00 AM EDT) Iron 29(L) 50 - 160 mcg/dL LAB CHEMISTRY METHOD 11/18/2024 3:57 PM EDT [facility] TIBC 289 250 - 450 mcg/dL LAB CHEMISTRY METHOD 11/18/2024 3:57 PM EDT [facility] Iron Saturation 10(L) 20 - 50 % LAB CHEMISTRY METHOD 11/18/2024 3:57 PM EDT [facility] Blood Venous blood specimen / Unknown Venipuncture / Unknown 11/18/2024 10:00 AM EDT 11/18/2024 11:56 AM EDT Hugo Green MD LAB BLOOD ORDERABLES Final Resu lt Performing Organization Address [facility] de Phone Number [facility] [address] [place] [address], [place] [phone] * (ABNORMAL) Microalbumin creatinine urine ratio (11/18/2024 10:00 AM EDT) Creatinine, Urine 71.0 mg/dL LAB CHEMISTRY METHOD 11/18/2024 10:11 PM EDT [facility] Microalb, Ur 3,840.0(H ) 0.0 - 29.0 mg/L LAB CHEMISTRY METHOD 11/18/2024 10:11 PM EDT [facility] Microalb/Crea t Ratio 5,408(H) <30 mg/g creat LAB CHEMISTRY METHOD 11/18/2024 10:11 PM EDT [facility] Urine Urine specimen obtained by clean catch procedure / Unknown Non-blood Collection / Unknown 11/18/2024 10:00 AM EDT 11/18/2024 11:57 AM EDT us Hugo Green MD LAB URINE ORDERABLES Final Resu lt Performing Organization Address [facility]/ZIP Co de Phone Number [facility] [address] [place] [address], [place] [phone] * (ABNORMAL) Vitamin D 25 hydroxy (11/18/2024 10:00 AM EDT) Vit D, 25-Hydroxy 20.6(L) 30.0 - 80.0 ng/mL LAB CHEMISTRY METHOD 11/18/2024 4:34 PM EDT [facility] Blood Venous blood specimen / Unknown Venipuncture / Unknown 11/18/2024 10:00 AM EDT 11/18/2024 11:56 AM EDT us Hugo Green MD LAB BLOOD ORDERABLES Final Resu lt Performing Organization Address [facility]/ZIP Co de Phone Number [facility] [address] [place] [address], [place] [phone] * (ABNORMAL) Parathyroid hormone intact (11/18/2024 10:00 AM EDT) PTH 541.1(H) 18.5 - 88.0 pcg/mL LAB CHEMISTRY METHOD 11/18/2024 4:37 PM EDT [facility] Blood Venous blood specimen / Unknown Venipuncture / Unknown 11/18/2024 10:00 AM EDT 11/18/2024 11:56 AM EDT us Hugo Green MD LAB BLOOD ORDERABLES Final Resu lt Performing Organization Address City/[facility]/ZIP Co de Phone Number [facility] [address] [place] [address], [place] [phone] * (ABNORMAL) Ferritin (11/18/2024 10:00 AM EDT) Ferritin 14(L) 26 - 388 ng/mL LAB CHEMISTRY METHOD 11/18/2024 4:11 PM EDT [facility] Blood Venous blood specimen / Unknown Venipuncture / Unknown 11/18/2024 10:00 AM EDT 11/18/2024 11:56 AM EDT us Hugo Green MD LAB BLOOD ORDERABLES Final Resu lt Performing Organization Address [facility]/ZIP Co de Phone Number [facility] [address] [place] [address], [place] [phone] * (ABNORMAL) Renal function panel (11/18/2024 10:00 AM EDT) Sodium 136 133 - 145 mmol/L LAB CHEMISTRY METHOD 11/18/2024 4:11 PM [facility] Potassium 5.5 3.5 - 5.5 mmol/L LAB CHEMISTRY METHOD 11/18/2024 4:11 PM [facility] Chloride 110 96 - 110 mmol/L LAB CHEMISTRY METHOD 11/18/2024 4:11 PM [facility] CO2 23 21 - 32 mmol/L LAB CHEMISTRY METHOD 11/18/2024 4:11 PM [facility] Anion Gap 3 3 - 11 LAB CHEMISTRY METHOD 11/18/2024 4:11 PM [facility] Glucose 158(H) 70 - 100 mg/dL LAB CHEMISTRY METHOD 11/18/2024 4:11 PM [facility] BUN 72(H) 5 - 25 mg/dL LAB CHEMISTRY METHOD 11/18/2024 4:11 PM EDT [facility] Creatinine 4.93(H) 0.70 - 1.30 mg/dL LAB CHEMISTRY METHOD 11/18[facility]24 [facility] eGFR 14(L) >=60 mL/min/1. 73m2 LAB CHEMISTRY METHOD 11/18/2024 4:11 PM EDT [facility] Comment:Calculation based on the Chronic Kidney Disease Epidemiology Collaboration (CKD-EPI) equation refit without adjustment for race. BUN/Creatinine Ratio 14.6 LAB CHEMISTRY METHOD 11/18/2024 4:11 PM EDT [facility] Albumin 2.9(L) 3.2 - 5.0 g/dL LAB CHEMISTRY METHOD 11/18/2024 4:11 PM [facility] Calcium 8.1(L) 8.5 - 10.5 mg/dL LAB CHEMISTRY METHOD 11/18/2024 4:11 PM [facility] Phosphorus 5.4(H) 2.5 - 4.5 mg/dL LAB CHEMISTRY METHOD 11/18/2024 4:11 PM [facility] Blood Venous blood specimen / Unknown Venipuncture / Unknown 11/18/2024 10:00 AM EDT 11/18/2024 11:56 AM EDT us Hugo Green MD LAB BLOOD ORDERABLES Final Resu lt [facility] [address] [place] [address], * (ABNORMAL) Lipid panel with reflex to direct LDL (08/24/2024 11:37 AM EDT) Cholesterol 263(H) 0 - 200 mg/dL LAB CHEMISTRY METHOD 08/24/2024 3:22 PM EDT [facility] Triglycerides 98 0 - 150 mg/dL LAB CHEMISTRY METHOD 08/24/2024 3:22 PM EDT [facility] HDL 71 >=40 mg/dL LAB CHEMISTRY METHOD 08/24/2024 3:22 PM EDT [facility] LDL Calculated 172(H) 0 - 100 mg/dL LAB CHEMISTRY METHOD 08/24/2024 3:22 PM EDT [facility] VLDL Cholesterol Nasir 19.6 mg/dL LAB CHEMISTRY METHOD 08/24/2024 3:22 PM EDT [facility] Non HDL Chol. (LDL+VLDL) 192(H) <145 mg/dL LAB CHEMISTRY METHOD 08/24/2024 3:22 PM EDT [facility] Chol/HDL Ratio 3.7 0.0 - 4.4 LAB CHEMISTRY METHOD 08/24/2024 3:22 PM EDT [facility] Blood Venous blood specimen / Unknown Venipuncture / Unknown 08/24/2024 11:37 AM EDT 08/24/2024 11:37 AM EDT us Harinder GRANADO LAB BLOOD ORDERABLES Final Res ult [facility] [address] [place] [address], * Hemoglobin A1c (08/24/2024 11:37 AM EDT) Hemoglobin A1C 6.4 <6.5 % LAB CHEMISTRY METHOD 08/24/2024 8:53 PM EDT [facility] Mean Bld Glu Estim. 137 mg/dL LAB CHEMISTRY METHOD 08/24/2024 8:53 PM EDT [facility] Blood Venous blood specimen / Unknown Venipuncture / Unknown 08/24/2024 11:37 AM EDT 08/24/2024 11:37 AM EDT us Harinder GRANADO LAB BLOOD ORDERABLES Final Res ult [facility] [address] [place] [address], [place] [phone] * Diabetes Eye Exam (03/24/2023) Diabetes: Annual Retina Eye Exam Abstracted us Historical Provider HEALTH MAINTENANCE Final Result * External Colonoscopy Report (12/25/2021 11:06 AM EDT) Anatomical Region Laterality Modality Endoscopy us Historical Provider GI~PROCEDURE ORDERABLES F inal Result from Last 3 Months or Most Recently Relevant to Health Maintenance Insurance [facility] MEDICARE Member Subscriber Plan / Payer (Ef fective 2021-Present) Name:CLIFFORD QUINONES Relation to Subscriber:Self Name:Clifford Quinones Payer ID:[id number] Group ID:[id number] Type:Not on file Address: [place] [phone] Advance Directives Documents on File Type Date Recorded 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 Care Teams Sawyer Cork Slabs Relationship Specialty Start Date End Date Talya García MD [address] [place] [address] PCP - General Internal Medicine 01/19/24
--- OUTSIDE RECORDS SUMMARY | 2025-02-15 11:36 | XMS_ITS | Encounter Summary ---
Author Organization [employer] Address [address] [place] [address] Care Team Providers Care Messenger Office Name Role Phone Talya García MD Primary Care Prov ider Reason for Visit * Reason Onset Date Comments Medical Records 01/06/2025 Encounter Details Date Type Department Care Team ([facility] st Contact Info) Description 01/06/2025 Telephone [facility] Cardiology [facility] [address] [place] [address] Provider, Not In System Social History Tobacco Use Types Packs/Day Years [...] care for your loved ones. For example, childcare director or elderly care for an older [...] documented in this encounter Progress Notes * Carolin Ng - 02/13/2025 10:48 AM EST Faxed [facility] Dis. Det. Rec. Req. To Share Care Copying at [phone] on 01/06/2025 to process complete records. documented in this encounter Plan of Treatment Upcoming Encounters Date Type Department Care Team (Late st Contact Info) Description 02/23/2025 8:10 AM EST Consult [facility] Cardiology [facility] [address] [place] [phone] Yesi Doshi NP [address] [place] [address] Dr [address] [place] [phone] 04/24/2025 1:40 PM EST Office Visit [facility] Cardiology [facility] [address] [place] [address] Harjit Tomas NP [address] [place] [address] Dr [address] [place] [phone] documented as of this encounter Visit Diagnoses Not on filedocumented in this encounter Additional Health Concerns Assessment Noted Time PHQ-9 Depression Total Score: 10 025 4:16 PM EDT documented as of this encounter Care Teams Messenger Office Relationship Specialty Start Date End Date Talya García MD [address] [place] [address] PCP - General Internal Medicine 01/19/24 documented as of this encounter
--- OUTSIDE RECORDS SUMMARY | 2025-02-15 11:36 | XMS_ITS | Encounter Summary ---
Author Organization [employer] Address [address] [place] [address] Care Team Providers Care Credentialing Coordinator Name Role Phone Talya García MD Primary Care Prov ider Reason for Visit * Reason Onset Date Comments PAULA NOTES 01/25/2025 Encounter Details Date Type Department Care Team (Late st Contact Info) Description 01/25/2025 Telephone Nephrology - [place] [address] [place] [phone] Hugo Green MD [address] [place] [address] Social History Tobacco Use Types Packs/Day Years [...] Deedee Maher - 01/26/2025 10:28 AM EST [facility] Rheumatology office is calling to follow up on below notes request. Advised this was sent yesterday afternoon. They did not receive. When I went to confirm fax number, fax number was taken down incorrectly. She is asking if we can please refax to [phone] * Pennie Jefferson - 01/25/2025 10:45 AM EST Mable from [facility] is calling to request the pt's PAULA notes from 09/30. They can be faxed to [phone] documented in this encounter Plan of Treatment Upcoming Encounters Date Type Department Care Team (Late st Contact Info) Description 02/23/2025 8:10 AM EST Consult [facility] Cardiology [facility] [address] [facility] [address] [place] [address] Yesi Doshi NP [address] [place] [address] Dr [address] [place] [address] 04/24/2025 1:40 PM EST Office Visit [facility] [address] [place] [address] Harjit Tomas NP [address] [place] [address] Dr [address] [place] [address] documented as of this encounter Visit Diagnoses Not on filedocumented in this encounter Additional Health Concerns Assessment Noted Time PHQ-9 Depression Total Score: 10 025 4:16 PM EDT documented as of this encounter Care Teams Credentialing Coordinator Relationship Specialty Start Date End Date Talya García MD [address] [place] [address] PCP - General Internal Medicine 01/19/24 documented as of this encounter
--- OUTSIDE RECORDS SUMMARY | 2025-02-15 11:36 | XMS_ITS | Encounter Summary ---
Author Organization [employer] Address [address] [place] [address] Care Team Providers Care Kettle Tender Name Role Phone Talya García MD Primary Care Prov ider Encounter Details Date Type Department Care Team (Late st Contact Info) Description 01/13/2025 Results Follow-Up Adult Medicine - [place] [address] [place] [address] Talya García MD [address] [place] [address] Social History Tobacco Use Types Packs/Day Years [...] Info) Description 02/23/2025 8:10 AM EST Consult [facility] Cardiology [facility] Dr [facility] Center Dr Watson [address] [place] [phone] Yesi Doshi NP [address] [place] [address] Dr [address] [place] [phone] 04/24/2025 1:40 PM EST Office Visit [facility] [address] [place] [phone] Harjit Tomas NP [address] [place] [address] Dr [address] [place] [phone] documented as of this encounter Visit Diagnoses Not on filedocumented in this encounter Additional Health Concerns Assessment Noted Time PHQ-9 Depression Total Score: 10 025 4:16 PM EDT documented as of this encounter Care Teams Kettle Tender Relationship Specialty Start Date End Date Talya García MD [address] [place] [address] PCP - General Internal Medicine 01/19/24 documented as of this encounter
--- OUTSIDE RECORDS SUMMARY | 2025-02-15 11:36 | XMS_ITS | Encounter Summary ---
Author Organization [employer] Address [address] [place] [address] Care Team Providers Care Ham Smoker Name Role Phone Talya García MD Primary Care Prov ider Reason for Referral * Consultation (Routine) - Closed Specialty Diagnoses / Procedures Referred By Jeronimo luis Referred To Contact Neurology Diagnoses Cervicogenic headache Nerve pain Talya García MD [address] [place] [address] Phone: tel: fax: [facility] [address] [facility] [address] [place] [address] Phone: tel: fax: Referral ID Status Reason Start Date Expiration Date V isits Requested Visits Authorized [id number] Closed Consult and Treat 01/10/2025 01/10/2026 1 1 Reason for Visit * Reason Onset Date Comments Referral 01/10/2025 Neurology Encounter Details Date Type Department Care Team ([facility] st Contact Info) Description 01/10/2025 Telephone Adult Medicine - [place] [address] [place] [phone] Talya García MD [address] [place] [address] Social History Tobacco Use Types Packs/Day Years [...] for your loved ones. For example, child development professor or elderly care for an older adult? [...] Info) Description 02/23/2025 8:10 AM EST Consult [facility] [address] [place] [address] Yesi Doshi NP [address] [place] [address] Dr [address] [place] [phone] 04/24/2025 1:40 PM EST Office Visit [facility] Cardiology [facility] [address] [place] [address] Dr [address] [place] [address] Harjit Tomas NP [address] [place] [address] Dr [address] [place] [address] Scheduled Referrals Name Type Priority Associated Diagnoses Order Schedule Ambulatory referral to Neurology Outpatient Referral Routine Cervicogenic headache Nerve pain Expected: 01/10/2025, Expires: 01/10/2026 documented as of this encounter Visit Diagnoses Diagnosis Nerve pain- Primary Unspecified neuralgia, neuritis, and radiculitis Cervicogenic headache Headache Type 2 diabetes mellitus with other diabetic neurological complication ([facility] V24, [facility] V28) documented in this encounter Additional Health Concerns Assessment Noted Time PHQ-9 Depression Total Score: 10 025 4:16 PM EDT documented as of this encounter Care Teams Ham Smoker Relationship Specialty Start Date End Date Talya García MD [address] [place] [address] PCP - General Internal Medicine 01/19/24 documented as of this encounter
--- OUTSIDE RECORDS SUMMARY | 2025-02-15 11:36 | XMS_ITS | Encounter Summary ---
Author Organization [employer] Address [address] [place] [address] Care Team Providers Care Felt Cutting Machine Operator Name Role Phone Talya García MD Primary Care Prov ider Encounter Details Date Type Department Care Team ([facility] st Contact Info) Description 12/12/2024 Results Follow-Up Adult Medicine - [place] [address] [place] [address] Harinder Lipscomb PA [address] [place] [address] Social History Tobacco Use Types Packs/Day Years [...] your loved ones. For example, early childhood education coordinator or elderly care for an older adult? [...] 02/19/2024 11:11 PM Adriana Rodriguez RN * Calculated C-SSRS Risk Score (Lifetime/Recent) Answer Date of Assessment Author No Risk Indicated 12/30/2024 2:15 PM EDT Jim Mojica RN * [place] Suicide Severity Rating Scale (Screener/Recent Self-Report) Question Answer Date of Assessment Author 1. Wish to be (Past 1 Month) No 12/30/2024 2:15 PM EDT Tacos Mcgovern RN 2. Non-Specific Active Suici matt Thoughts (Past 1 Month) No 12/30/2024 2:15 PM EDT Oneal Mcgovern RN 6. Suicidal Behavior (Lifetime) No 2:15 PM MEIRT Jim Mcgovern RN documented as of this encounter Mental [...] Info) Description 02/23/2025 8:10 AM EST Consult [facility] Cardiology [facility] [address] [place] [address] Yesi Doshi NP [address] [place] [address] Dr [address] [place] [address] 04/24/2025 1:40 PM EST Office Visit [facility] Cardiology [facility] [address] [place] [address] Harjit Tomas NP [address] [place] [address] [place] [address] documented as of this encounter Visit Diagnoses Diagnosis Positive DOUG (antinuclear antibody)- Primary Other and unspecified nonspecific immunological findings documented in this encounter Additional Health Concerns Assessment Noted Time PHQ-9 Depression Total Score: 10 025 4:16 PM EDT documented as of this encounter Care Teams Felt Cutting Machine Operator Relationship Specialty Start Date End Date Talya García MD [address] [place] [address] PCP - General Internal Medicine 01/19/24 documented as of this encounter
== END 2025-02-15 11:19 | disposition home or self-care (01) ==
LOC: HO.RHES 10:11
PROVIDERS: PCP Internal Medicine; Visit Provider Student in an Organized Health Care Education/Training Program
DX: N18.6 End stage renal disease (principal); M25.50 Pain in unspecified joint; R76.89 Other specified abnormal immunological findings in serum
CPT/HCPCS: 99213

== ENCOUNTER → 2025-02-15 10:10 | Outpatient (BNVA) | payer OTHER, SELFPAY | PROVIDERS: PCP Internal Medicine; Visit Provider Student in an Organized Health Care Education/Training Program | DX: M25.532 Pain in left wrist (principal); M25.541 Pain in joints of right hand; M25.561 Pain in right knee; M25.531 Pain in right wrist; M25.562 Pain in left knee; M25.542 Pain in joints of left hand; M25.512 Pain in left shoulder; M25.511 Pain in right shoulder; R76.89 Other specified abnormal immunological findings in serum; N18.6 End stage renal disease | CPT/HCPCS: 99212 ==